=== PATIENT | female | born 1955 | race Caucasian/White ===

== ENCOUNTER → 2017-01-12 16:39 | Outpatient (CLI) | payer OTHER ==
[2016-10-27 12:51] VITALS: BMI 33.7
[~2017-01-12 16:39] MED LIST: FUROSEMIDE20 MG PO; KLOR-CON 1010 MEQ PO; NOVOLOG MIX 70/10 ML SQ; WELLBUTRIN SR150 MG PO; ZOLOFT100 MG PO; ZYRTEC10 MG PO
== END | disposition home or self-care (01) ==
LOC: D.MAMMO 08:30
DX: N64.4 Mastodynia (principal)

== ENCOUNTER → 2017-02-20 10:53 | Outpatient (CLI) | payer OTHER ==
[2016-10-27 12:51] VITALS: BMI 33.7
== END | disposition home or self-care (01) ==
LOC: D.RAD 10:53
DX: J20.9 Acute bronchitis, unspecified (principal)

== ENCOUNTER → 2017-04-18 08:31 | Outpatient (CLI) | payer OTHER ==
[2016-10-27 12:51] VITALS: BMI 33.7
== END | disposition home or self-care (01) ==
LOC: D.US 08:31
DX: K76.0 Fatty (change of) liver, not elsewhere classified (principal)

== ENCOUNTER → 2017-06-23 14:15 | Outpatient (CLI) | payer OTHER ==
[2016-10-27 12:51] VITALS: BMI 33.7
== END | disposition home or self-care (01) ==
LOC: D.LAB 14:15
DX: R07.81 Pleurodynia (principal)

== ENCOUNTER 2017-06-29 20:36 | Emergency (ER) | payer OTHER ==
[2016-10-27 12:51] VITALS: BMI 33.7
== END 2017-06-29 23:15 | disposition home or self-care (01) ==
LOC: D.ER 20:36
DX: E11.65 Type 2 diabetes mellitus with hyperglycemia (principal); F17.200 Nicotine dependence, unspecified, uncomplicated

== ENCOUNTER 2017-07-31 00:20 | Emergency (ER) | payer OTHER ==
[2016-10-27 12:51] VITALS: BMI 33.7
== END 2017-07-31 01:28 | disposition home or self-care (01) ==
LOC: D.ER 00:20
DX: S93.401A Sprain of unspecified ligament of right ankle, initial encounter (principal); W19.XXXA Unspecified fall, initial encounter; Y93.89 Activity, other specified; Y92.89 Other specified places as the place of occurrence of the external cause; S93.402A Sprain of unspecified ligament of left ankle, initial encounter; E11.9 Type 2 diabetes mellitus without complications; F17.200 Nicotine dependence, unspecified, uncomplicated

== ENCOUNTER → 2017-08-18 10:51 | Outpatient (CLI) | payer OTHER ==
[2016-10-27 12:51] VITALS: BMI 33.7
[2017-08-19 08:17] LABS: IMMUNOGLOBULIN E 1041 IU/mL (0-100)
[2017-08-21 15:20] LABS: IMMUNOGLOBULIN A 900 mg/dL (87-352); IMMUNOGLOBULIN G 1061 mg/dL (700-1600); IMMUNOGLOBULIN M 62 mg/dL (26-217)
== END | disposition home or self-care (01) ==
LOC: D.RAD 07-18 14:00 → D.LAB 07-18 14:00 → D.RT 07-18 14:00 → D.RAD 07-18 14:45 → D.LAB 07-18 15:00 → D.RT 10:51
PROVIDERS: Internal Medicine Pulmonary Disease
DX: J44.9 Chronic obstructive pulmonary disease, unspecified (principal)

== ENCOUNTER → 2017-10-18 08:56 | Outpatient (CLI) | payer OTHER ==
[2016-10-27 12:51] VITALS: BMI 33.7
[2017-10-18 10:21] LABS: ALBUMIN 3.4 g/dL (3.4-5.0); BILIRUBIN - DIRECT 0.16 mg/dL (0.00-0.30); BILIRUBIN - INDIRECT 0.42 mg/dL (0.00-1.00); BILIRUBIN - TOTAL 0.58 mg/dL (0.2-1.3); PROTEIN - SERUM 7.7 g/dL (6.4-8.2)
== END | disposition home or self-care (01) ==
LOC: D.US 08:56
PROVIDERS: Internal Medicine Gastroenterology
DX: K76.0 Fatty (change of) liver, not elsewhere classified (principal)

== ENCOUNTER → 2017-11-20 12:55 | Outpatient (CLI) | payer OTHER ==
[2016-10-27 12:51] VITALS: BMI 33.7
== END | disposition home or self-care (01) ==
LOC: D.CT 12:55
DX: I73.9 Peripheral vascular disease, unspecified (principal)

== ENCOUNTER 2018-02-15 11:51 | Day surgery (SDC) | payer OTHER ==
[~2018-02-15] VITALS: Ht 162.6 cm; Wt 87.3 kg
--- NOTE | ~2018-02-15 | OP ---
PATIENT NAME: JERE MEDELLIN MEDICAL RECORD: [id number] :53 LOCATION:[facility] ADMISSION DATE: SURGEON: AMEE STRANGE MD DATE OF OPERATION: 02/15/2018 PROCEDURE: Colonoscopy with biopsy. CONCRETE FORM SETTER: Amee Strange MD SCOPE: An Olympus video colonoscope. MEDICATIONS: Per TIVA anesthesia. The patient received 200 mg of propofol for this procedure, O2 four liters. REASON FOR ANESTHESIA: Arthritis, asthma, bronchitis, diabetes mellitus. INDICATION FOR THE PROCEDURE: Nausea, diarrhea, rory hematochezia, history of irritable bowel syndrome with diarrhea. FINDINGS: Informed consent was given. The patient was made comfortable with the above medications. After reaching an adequate level of sedation by slow IV push, the patient was placed on her left side. The rectal exam revealed good sphincter tone. No fissures or fistulas were appreciated. No external skin tags were seen. The colonoscope was advanced to the cecum where ileocecal valve and appendiceal orifice were identified. The patient did have some inflammation within the terminal ileum and biopsies were obtained. On withdrawal of the scope, mucosa was carefully inspected. It was noted that the patient had spasm associated with irritable bowel syndrome. This was globally throughout the colon. We will provide a prescription of Levsin to treat this condition in case the patient does have some crampy abdominal pain. The patient also had some inflammation within the rectal vault, which was biopsied. We also biopsied due to the condition of diarrhea, looking for mainly a microscopic etiology for the diarrhea in addition to the condition of irritable bowel syndrome. On retroflexion and final withdrawal of the scope, hemorrhoids were appreciated. IMPRESSION: 1. Inflammation within the terminal ileum, biopsied. 2. Spasm associated with irritable bowel syndrome, diarrhea predominant. 3. Mild rectal inflammation, biopsied. Also biopsied due to the condition of diarrhea. Of note, the patient does have diabetes mellitus which can add to the problem of diarrhea. 4. Hemorrhoids. PLAN: 1. Avoid anti-inflammatory drugs at least for 14 days. Of note, we will check the biopsy for collagenous colitis, which is a condition of subendothelial thickening of the colon mucosa, which can cause the condition of diarrhea. 2. Check the stool studies. 3. No caffeine. 4. The patient to take probiotics. 5. Due to the condition of inflammation within the small bowel, we will place the patient on Flagyl at a dose of 500 mg p.o. t.i.d. times 7 days. Also recommend dxnd-auk-ahpcfaw Imodium, no more than 6 per day. TRANSINT:[id number] Voice Confirmation ID: [id number] DOCUMENT ID: [id number] OPERATIVE REPORT [id number] JERE MEDELLIN BRENDA MD at 1421 CC: BLANK BARRAZA DO [id number] DICTATION DATE: 02/15/18 1525 INTERMISSION COORDINATOR: 02/15/18 1611 [facility] 02/15/18 [facility] [address] [place] [address]
[2018-02-15 12:47] VITALS: BP 120/71; Ht 162.6 cm; Wt 87.3 kg
[2018-02-15 12:47] LABS: ANION GAP 14.1 mmol/L (8-16); CALCIUM 8.3 mg/dL (8.5-10.1); CARBON DIOXIDE 29.1 mmol/L (21.0-32.0); CREATININE - SERUM 1.1 mg/dL (0.6-1.3); HEMATOCRIT 42.9 % (36.0-48.0); MCH 29.5 pg (26.0-34.0); MCHC 32.6 g/dL (31.0-37.0); MCV 90.5 fL (80.0-100.0); MEAN PLATELET VOLUME 10.8 fL (7.4-10.4); POTASSIUM - SERUM 4.2 mmol/L (3.5-5.1); RBC 4.74 10x6/uL (4.00-5.40); RDW 14.4 % (11.5-14.5); WBC 8.4 10x3/uL (4.8-10.8)
== END 2018-02-15 16:30 | disposition home or self-care (01) ==
LOC: D.OPS 11:51
PROVIDERS: Anesthesiology
DX: K92.1 Melena (principal); K58.0 Irritable bowel syndrome with diarrhea; K64.9 Unspecified hemorrhoids; M19.90 Unspecified osteoarthritis, unspecified site; J45.909 Unspecified asthma, uncomplicated; E11.9 Type 2 diabetes mellitus without complications; Z01.812 Encounter for preprocedural laboratory examination

== ENCOUNTER → 2018-02-19 08:06 | Outpatient (CLI) | payer OTHER ==
[2018-02-15 12:47] VITALS: BMI 33.0
== END | disposition home or self-care (01) ==
LOC: D.RAD 08:06
DX: Z86.010 Personal history of colon polyps (principal); K92.1 Melena; K58.0 Irritable bowel syndrome with diarrhea; R11.0 Nausea

== ENCOUNTER → 2018-02-22 10:42 | Outpatient (CLI) | payer OTHER ==
[2018-02-15 12:47] VITALS: BMI 33.0
[2018-02-23 07:34] LABS: IMMUNOGLOBULIN G 1081 mg/dL (700-1600); IMMUNOGLOBULIN M 72 mg/dL (26-217)
[2018-02-23 08:20] LABS: IMMUNOGLOBULIN A 878 mg/dL (87-352)
[2018-03-01 05:17] LABS: IMMUNOGLOBULIN E 881 IU/mL (0-100)
== END | disposition home or self-care (01) ==
LOC: D.LAB 10:30 → D.CT 11:00
PROVIDERS: Internal Medicine Pulmonary Disease
DX: R93.8 Abnormal findings on diagnostic imaging of other specified body structures (principal)

== ENCOUNTER 2018-04-14 10:57 | Emergency (ER) | payer OTHER ==
[~2018-04-14] VITALS: Ht 162.6 cm; Wt 82.7 kg
[2018-04-14 11:13] VITALS: Ht 162.6 cm; Wt 82.7 kg
[2018-04-14] MEDS ORDERED: HYDROCODON-ACET15 ML PO (11:16)
[2018-04-14] MEDS ORDERED: LEVEMIR100 U/M1 SC ×2 (11:17→11:18)
[2018-04-14 12:02] LABS: APPEARANCE CLEAR (CLEAR); BACTERIA MANY /hpf (NONE SEEN); BILIRUBIN NEGATIVE (NEGATIVE); COLOR YELLOW (YELLOW); EPITHELIAL CELLS 0-5 /hpf (0-5); GLUCOSE 1000 mg/dL (NEGATIVE); KETONE NEGATIVE (NEGATIVE); NITRITE POSITIVE (NEGATIVE); PROTEIN NEGATIVE (NEGATIVE); RED CELLS - URINE 0-5 /hpf (0-5); SPECIFIC GRAVITY 1.015 (1.005-1.020); UROBILINOGEN NORMAL (NORMAL)
[2018-04-14 12:32] LABS: BASOPHILS 0.6 % (0-2); EOSINOPHILS 2.7 % (0-7); HEMATOCRIT 38.3 % (36.0-48.0); HEMOGLOBIN 12.9 g/dL (12-16); LYMPHOCYTES 34.5 % (15-50); MCH 29.7 pg (26.0-34.0); MCHC 33.7 g/dL (31.0-37.0); MEAN PLATELET VOLUME 12.1 fL (7.4-10.4); MONOCYTES 5.3 % (2-11); NEUTROPHILS 56.9 % (40-80); PLATELET COUNT 140 10x3/uL (130-400); RBC 4.35 10x6/uL (4.00-5.40); RDW 14.2 % (11.5-14.5); WBC 4.7 10x3/uL (4.8-10.8)
[2018-04-14] MEDS ORDERED: MACROBID100 MG PO (12:40)
[2018-04-14 14:18] LABS: ALBUMIN 2.7 g/dL (3.4-5.0); ALKALINE PHOSPHATASE 110 U/L (46-116); ALT (SGPT) 29 U/L (10-68); CALCIUM 8.3 mg/dL (8.5-10.1); CARBON DIOXIDE 31.8 mmol/L (21.0-32.0); CHLORIDE - SERUM 104 mmol/L (98-107); CREATININE - SERUM 0.8 mg/dL (0.6-1.3); SODIUM 142 mmol/L (136-145); UREA NITROGEN 10 mg/dL (7-18); eGFR NON AFRICAN AMERICAN 77 mL/min (90-120)
[2018-04-14 14:41] LABS: CALC OSMOLALITY 283 mosm/kg (275-300); GLUCOSE 134 mg/dL (74-106)
[2018-04-14 14:42] LABS: POTASSIUM - SERUM 2.7 mmol/L (3.5-5.1)
[2018-04-14] MEDS ORDERED: K-DUR20 MEQ PO (15:06)
[2018-04-14 16:10] VITALS: BP 106/65
== END 2018-04-14 16:34 | disposition home or self-care (01) ==
LOC: D.ER 10:57
PROVIDERS: Emergency Medicine
DX: E11.65 Type 2 diabetes mellitus with hyperglycemia (principal); Z79.4 Long term (current) use of insulin; E87.6 Hypokalemia; Z91.14 Patient's other noncompliance with medication regimen; N39.0 Urinary tract infection, site not specified; F17.200 Nicotine dependence, unspecified, uncomplicated

== ENCOUNTER → 2018-04-27 07:09 | Outpatient (CLI) | payer OTHER ==
[2018-04-14 11:13] VITALS: BMI 31.3
[~2018-04-27 07:09] MED LIST changes: +ATIVAN0.5 MG PO; +HYDROCODON-ACET15 ML PO; +K-DUR20 MEQ PO; +LEVEMIR100 U/M1 SC; +MACROBID100 MG PO
[2018-04-27 08:22] LABS: ALBUMIN 3.2 g/dL (3.4-5.0); BILIRUBIN - DIRECT 0.1 mg/dL (0.00-0.30); BILIRUBIN - INDIRECT 0.27 mg/dL (0.00-1.00); BILIRUBIN - TOTAL 0.37 mg/dL (0.2-1.3); PROTEIN - SERUM 7.7 g/dL (6.4-8.2)
== END | disposition home or self-care (01) ==
LOC: D.US 04-19 09:30
PROVIDERS: Internal Medicine Gastroenterology
DX: K76.0 Fatty (change of) liver, not elsewhere classified (principal)

== ENCOUNTER 2018-05-09 22:33 | Emergency (ER) | payer OTHER ==
[~2018-05-09] VITALS: Ht 162.6 cm; Wt 78.2 kg
[~2018-05-09 22:33] MED LIST changes: -ATIVAN0.5 MG PO
[2018-05-09 23:00] VITALS: Ht 162.6 cm; Wt 78.2 kg
[2018-05-09 23:45] LABS: HEMATOCRIT 40.8 % (36.0-48.0); HEMOGLOBIN 13.8 g/dL (12-16); LYMPHOCYTES 25.8 % (15-50); MCH 29.7 pg (26.0-34.0); MCHC 33.8 g/dL (31.0-37.0); MCV 87.9 fL (80.0-100.0); MEAN PLATELET VOLUME 11.3 fL (7.4-10.4); NEUTROPHILS 65.6 % (40-80); PLATELET COUNT 121 10x3/uL (130-400); RBC 4.64 10x6/uL (4.00-5.40); RDW 14.5 % (11.5-14.5); WBC 6.9 10x3/uL (4.8-10.8)
[2018-05-10 00:08] LABS: ALBUMIN 3.2 g/dL (3.4-5.0); ANION GAP 10.8 mmol/L (8-16); BILIRUBIN - TOTAL 0.42 mg/dL (0.2-1.3); CALCIUM 8.4 mg/dL (8.5-10.1); CARBON DIOXIDE 28.3 mmol/L (21.0-32.0); CREATININE - SERUM 1.3 mg/dL (0.6-1.3); POTASSIUM - SERUM 4.1 mmol/L (3.5-5.1); PROTEIN - SERUM 7.8 g/dL (6.4-8.2)
[2018-05-10] MEDS ORDERED: ATIVAN0.5 MG PO (00:10)
[2018-05-10 00:28] LABS: APPEARANCE CLEAR (CLEAR); BILIRUBIN NEGATIVE (NEGATIVE); COLOR YELLOW (YELLOW); GLUCOSE 1000 mg/dL (NEGATIVE); KETONE NEGATIVE (NEGATIVE); NITRITE NEGATIVE (NEGATIVE); PROTEIN NEGATIVE (NEGATIVE); UROBILINOGEN NORMAL (NORMAL)
[2018-05-10 00:29] LABS: BACTERIA FEW /hpf (NONE SEEN); EPITHELIAL CELLS 0-5 /hpf (0-5); HYALINE CAST 0-5 /lpf (NONE SEEN); RED CELLS - URINE 0-5 /hpf (0-5)
[2018-05-10 00:49] VITALS: BP 122/72
== END 2018-05-10 00:50 | disposition home or self-care (01) ==
LOC: D.ER 22:33
PROVIDERS: Emergency Medicine
DX: R25.1 Tremor, unspecified (principal); E11.9 Type 2 diabetes mellitus without complications; Z79.4 Long term (current) use of insulin; F17.200 Nicotine dependence, unspecified, uncomplicated

== ENCOUNTER → 2018-06-14 12:07 | Outpatient (CLI) | payer OTHER ==
[2018-05-09 23:00] VITALS: BMI 29.6
[~2018-06-14 12:07] MED LIST changes: +ATIVAN0.5 MG PO
[2018-06-15 07:32] LABS: HEPATITIS C ANTIBODY 0.2 (0.0-0.9)
== END | disposition home or self-care (01) ==
LOC: D.LAB 06-13 12:00
PROVIDERS: Internal Medicine Gastroenterology
DX: K76.0 Fatty (change of) liver, not elsewhere classified (principal); K58.0 Irritable bowel syndrome with diarrhea; R79.89 Other specified abnormal findings of blood chemistry

== ENCOUNTER 2018-10-20 10:44 | Emergency (ER) | payer OTHER ==
[2018-10-20 10:53] VITALS: Ht 162.6 cm
[2018-10-20] MEDS ORDERED: VITAMIN D31000 UNI2 (10:55)
[2018-10-20] MEDS ORDERED: BACLOFEN20 M1 PO (11:59)
[2018-10-20] MEDS ORDERED: PREDNISONE20 MG PO (11:59)
[2018-10-20 12:19] VITALS: BP 122/72
== END 2018-10-20 12:20 | disposition home or self-care (01) ==
LOC: D.ER 10:44
DX: M79.604 Pain in right leg (principal); F17.200 Nicotine dependence, unspecified, uncomplicated

== ENCOUNTER 2019-10-23 05:25 | Emergency (ER) | payer SELFPAY ==
[~2019-10-23] VITALS: Ht 162.6 cm; Wt 82.3 kg
[~2019-10-23 05:25] MED LIST changes: +BACLOFEN20 M1 PO; +PREDNISONE20 MG PO; +VITAMIN D31000 UNI2
[2019-10-23 05:37] VITALS: Ht 162.6 cm; Wt 82.3 kg
[2019-10-23 06:38] LABS: BASOPHILS 0.2 % (0-2); EOSINOPHILS 0.2 % (0-7); HEMATOCRIT 36.7 % (36.0-48.0); HEMOGLOBIN 12.3 g/dL (12-16); LYMPHOCYTES 12.7 % (15-50); MCHC 33.5 g/dL (31.0-37.0); MCV 86.6 fL (80.0-100.0); MONOCYTES 11.9 % (2-11); PLATELET COUNT 109 10x3/uL (130-400); RBC 4.24 10x6/uL (4.00-5.40); RDW 14.6 % (11.5-14.5); WBC 4.1 10x3/uL (4.8-10.8)
[2019-10-23 06:41] LABS: ANION GAP 12.6 mmol/L (8-16); CARBON DIOXIDE 27.4 mmol/L (21.0-32.0); CREATININE - SERUM 1.1 mg/dL (0.6-1.3)
[2019-10-23 06:44] LABS: ALBUMIN 2.9 g/dL (3.4-5.0); BILIRUBIN - TOTAL 0.9 mg/dL (0.2-1.3); PROTEIN - SERUM 7.6 g/dL (6.4-8.2)
[2019-10-23] MEDS ORDERED: PROMETHAZINE W473 ML PO (06:56)
[2019-10-23] MEDS ORDERED: ZPAK PO (06:56)
[2019-10-23 08:27] VITALS: BP 112/48
== END 2019-10-23 08:40 | disposition home or self-care (01) ==
LOC: D.ER 05:25
PROVIDERS: Family Medicine
DX: K52.9 Noninfective gastroenteritis and colitis, unspecified (principal); J40 Bronchitis, not specified as acute or chronic; E11.65 Type 2 diabetes mellitus with hyperglycemia; Z79.4 Long term (current) use of insulin; E87.6 Hypokalemia

== ENCOUNTER 2019-11-25 11:28 | Inpatient (IN) | payer MEDICAID ==
[~2019-11-25] VITALS: Ht 162.6 cm; Wt 77.1 kg
--- NOTE | ~2019-11-25 | ST ---
PATIENT:JERE MEDELLIN MEDICAL RECORD: [id number] SEX: F LOCATION:[facility] D.213 ORDER #: ADMISSION DATE: 11/25/19 AGE OF PATIENT: 64 REFERRING PHYSICIAN: INTERPRETING PHYSICIAN: AMY OVALLE MD DATE OF SERVICE: 11/28/2019 Nuclear Stress Test INDICATIONS: Chest pain. She was exercised on standard Lexiscan protocol with 31 mCi of sestamibi injected at peak stress. Rest images were done previously with 12 mCi. FINDINGS: Gated SPECT reveals a preserved ejection fraction at greater than 60% with good wall motioning and thickening and brightening throughout all segments. SPECT Imaging: Cardiolite was used as myocardial perfusion agent. There is reversibility anteriorly and laterally. This includes the basal, mid, apical anterior segments as well as the apical lateral, mid lateral, basal lateral segments. Degree of reversibility is mild. The amount of myocardium involved is large. OVERALL IMPRESSION: This is an intermediate risk abnormal nuclear stress test, reversible changes anteriorly and laterally suggestive of hemodynamically significant coronary artery disease. TRANSINT:[id number] Voice Confirmation ID: [id number] DOCUMENT ID: [id number] MAY OVALLE MD CC: [id number] DICTATION DATE: 11/29/19 1249 DIE CUTTER APPRENTICE: 11/30/19 0103 ADM IN [facility] [address] [place] [address]
--- NOTE | ~2019-11-25 | HEMODYNAMI ---
PATIENT:JERE MEDELLIN MEDICAL RECORD: [id number] : 53 LOCATION:[facility] D.2133 [facility]# [id number] ADMISSION DATE: 11/25/19 Generatedon:11/29/201916:08 Patient name: JERE MEDELLIN Patient #: [id number] SSN: [id number] : 1955 Date of study: 11/29/2019 Page: Of Hemodynamic Procedure Report Patient Data Patient Demographics Procedure consent was obtained First Name: JERE Gender: Female Last Name: LACIE : 1955 Patient #: [id number] Age: 64 year(s) Race: SSN: [id number] Ethnicity: or Additional ID: [id number] Contact details Address: [address] [place] [address] State: [place] City: [facility] Zip code: [address] Past Medical History Allergies Allergen Reaction Date Comments Reported Other allergy 11/29/2019 n-saids, pcn, cefaclor, aspirin, meloxicam Admission Admission Data Admission Date: 11/25/2019 Admission Time: 17:01 Arrival Date: 11/29/2019 Arrival Time: 0:00 Admit Source: Other Insurance Payor: Medicaid Room #: D.2133 [facility] #: [id number] Height (in.): 64 BSA: 1.8 (m2) Height (cm.): 162.56 BMI: 28.15 (kg/m2) Weight (lbs.): 163.98 Weight (kg.): 74.38 Lab Results Lab Result Date: 11/29/2019 Lab Result Time: 0:00 Biochemistry Name Units Result Min Max BUN mg/dl 21 --(----)-* 7 18 Creatinine mg/dl 0.8 --(-*--)-- 0.6 1.3 eGFR ml/min 76.54461 *-(----)-- 90 120 NONAFRICAN CBC Name Units Result Min Max Hematocrit % 36.1 *-(----)-- 42 54 Hemoglobin g/dl 11.5 *-(----)-- 13.5 17.5 Procedure Procedure Types Cath Procedure Diagnostic Procedure [facility] w/Coronaries Procedure Description Procedure Date Procedure Date: 11/29/2019 Procedure Start Time: 15:54 Procedure End Time: 16:02 Procedure Staff Name Function Denilson Castellanos MD Performing Physician Lopez Clark RN Nurse Chetan Adams RT Scrub Amber Maldonado RT Monitor Indication Chest pain Procedure Data Cath Procedure Fluoroscopy Diagnostic fluoroscopy Total fluoroscopy Time: 1 time: 1 min min Diagnostic fluoroscopy Total fluoroscopy dose: dose: 74.77 mGy 74.77 mGy Contrast Material Contrast Material Type Amount (ml) Isovue 370 33 Entry Location Entry Primary Successful Side Size Upsize Upsize Entry Closure Dee ccessful Closure Location (Fr) 1 (Fr) 2 (Fr) Remarks Device Remarks Radial Right 6 Fr Mechanical artery Short Compression Estimated blood loss: 5 ml Diagnostic catheters Device Type Used For End Catheter Placement DIAGNOSTIC [place] 110cm 5 Procedure Fr catheter ([id number]) Procedure Complications No complications Procedure Medications Medication Administration Route Dosage 0.9% NaCl I.V. 100 ml/hr Oxygen etCO2 Nasal cannula 2 l/min Heparin Flush Bag added to field 2 bags (1000units/500ml NS) Lidocaine 2% added to field 20 Radial Cocktail added to field 1 syringe (Verapamil 2mg/Nitro 400mcg/Heparin 1500units) Versed I.V. 2 mg Fentanyl I.V. 100 mcg Radial Cocktail I.A. 1 syringe (Verapamil 2mg/Nitro 400mcg/Heparin 1500units) Versed I.V. 1 mg Hemodynamics Rest BSA: 1.8 (m2) HGB: 11.5 (g/dl) O2 Consumption: Estimated: 183.61 (ml/min) O2 Con sumption indexed: Estimated:102.01 (ml/min/m) Heart Rate: 93 (bpm) Snapshots Pre Cath Intra NCS Post Cath Vital Signs Time Heart Resp SPO2 etCO2 NIBP Rhythm Pain Sedation Rate (ipm) (%) (mmHg) (mmHg) Status Level (bpm) 15:26:36 92 17 91 36 111/65(86) NSR 0 (11) 10(A) , No pain 15:30:42 92 26 92 32.3 110/66(83) NSR 0 (11) 10(A) , No pain 15:34:45 94 18 92 28.5 106/70(78) NSR 0 (11) 10(A) , No pain 15:38:51 95 11 93 30.8 108/62(80) NSR 0 (11) 10(A) , No pain 15:42:53 96 11 93 3 106/73(90) NSR 0 (11) 10(A) , No pain 15:46:57 95 12 90 22.5 107/67(82) NSR 0 (11) 10(A) , No pain 15:51:00 95 13 92 34.5 100/68(81) NSR 0 (11) 10(A) , No pain 15:55:02 95 12 92 36.8 110/67(91) NSR 0 (11) 10(A) , No pain 15:59:12 92 11 92 18.8 87/54(70) NSR 0 (11) 10(A) , No pain 16:03:12 94 11 90 0 93/59(79) NSR 0 (11) 10(A) , No pain Medications Time Medication Route Dose Verified Delivered Reason Notes Effectiveness by by 15:24:48 0.9% NaCl I.V. 100 Lopez Lopez Per ml/hr Eduardo Clark physician RN RN 15:24:57 Oxygen etCO2 2 l/min Lopez Lopez for low 02 Nasal Lorigan Lorigan sats cannula RN RN 15:25:08 Heparin Flush added 2 bags Lopez Lopez used for Bag to Lorigan Lorigan procedure (1000units/500ml the [facility] RN RN NS) 15:25:18 Lidocaine 2% added 20ml Lopez Lopez for local to vial Lorigan Lorigan anesthetic field RN RN 15:25:32 Radial Cocktail added 1 Lopez Lopez used for (Verapamil to syringe Lorigan Lorigan procedure 2mg/Nitro field RN RN 400mcg/Hepari 15:55:48 Versed I.V. 2 mg Lopez Lopez for sedation Eduardo Clark RN RN 15:55:56 Fentanyl I.V. 100 mcg Lopez Lopez for sedation Eduardo Clark RN RN 15:56:10 Radial Cocktail I.A. 1 Lopez Denilson for (Verapamil syringe Eduardo Castellanos MD vasodilation 2mg/Nitro RN 400mcg/Hepari 15:57:05 Versed I.V. 1 mg Lopez Marroquin for sedation Eduardo Clark RN row boss hoeing Log Time Note 15:13:04 Diagnostic Cath Status : Emergency 15:13:12 Indication : Chest pain 15:13:17 Procedure Status Emergent Heart Cath (AMI). 15:13:27 Chetan Adams RT(R) sent for patient. Start room use. 15:13:29 Time tracking: Regular hours (M-F 7:00 - 5:00) 15:13:34 Plan of Care:Hemodynamics will remain stable., Cardiac rhythm will remain stable., Comfort level will be maintained., Respiratory function will remain adequate., Patient/ family verbilizes understanding of procedure., Procedure tolerated without complication., Recovers from procedure without complications.. 15:13:38 Admit Source: Other 15:13:47 Stress Test: no; N/A ? 15:15:36 Patient received from Med II to CCL 3 Alert and oriented. Tansferred to table in Supine position. 15:15:45 Signed procedure consent form obtained from patient. 15:15:46 Warm blankets applied, and jackie hugger turned on for patient comfort. 15:15:47 Correct patient and procedure confirmed by team. 15:15:49 Full Disclosure recording started 15:15:53 ECG and BP/O2 sat monitors applied to patient. 15:16:00 H&P Date Dictated: 11/29/2019 Emergent; H&P N/A. 15:16:01 Pre-procedure instructions explained to patient. 15:16:02 Pre-op teaching completed and patient verbalized understanding. 15:16:50 Patient allergic to Other allergyn-saids, pcn, cefaclor, aspirin, meloxicam 15:16:56 Patient NPO since Lunch. 15:17:37 Arrival Date: 11/29/2019 12:00:00 AM 15:17:42 Patient Height : 64 inches 15:17:48 Patient Weight : 163.98 lbs 15:17:55 Insurance Payor : Medicaid 15:24:48 0.9% NaCl 100 ml/hr I.V. was administered by Lopez Clark RN; Per physician; Verbal order read back and verified. 15:24:57 Oxygen 2 l/min etCO2 Nasal cannula was administered by Lopez Lorigan RN; for low 02 sats; Verbal order read back and verified. 15:25:08 Heparin Flush Bag (1000units/500ml NS) 2 bags added to field was administered by Lopez Clark RN; used for procedure; Verbal order read back and verified. 15:25:18 Lidocaine 2% 20ml vial added to field was administered by Lopez Clark RN; for local anesthetic; Verbal order read back and verified. 15:25:32 Radial Cocktail (Verapamil 2mg/Nitro 400mcg/Heparin 1500units) 1 syringe added to field was administered by Lopez Clark RN; used for procedure; Verbal order read back and verified. 15:25:37 Vital chart was started 15:25:47 Baseline sample Acquired. 15::51 Rhythm: sinus rhythm 15::54 Family in waiting room. 15:25:59 Is the patient allergic to Iodine/contrast media? No. 15:26:01 Was the patient premedicated? No 15:26:03 Is patient on blood thinner?No 15:26:05 Patient diabetic? Yes. 15:26:06 If diabetic: On Metformin? Yes 15:26:11 If on Metformin: Last Dose? 11/28/2019 15:26:27 Patient not . Patient is over age 55. 15:26:28 ----Pre-sedation anethsthesia assessment.---- 15:26:33 Previous problem with sedation/anesthesia? No ? 15:26:35 Snore? No 15:26:36 Sleep apnea? No 15:26:37 Deviated septum? No 15:26:39 Opens mouth fully? Yes 15:26:40 Sticks out tongue? Yes 15:26:44 Airway obstruction? Yes copd 15:26:47 Dentures? No ? 15:26:51 Pre procedure: right dorsailis pedis pulse 2+ Normal; easily identifiable; not easily obliterated 15::55 Modified Tao's test Ulnar < 7 seconds 15:27:06 IV patent on arrival in right antecubital with 0.9% NaCl at [facility]. 15:32:54 Lab Result : Hemoglobin 11.5 g/dl 15:32:54 Lab Result : Hematocrit 36.1 % 15:32:54 Lab Result : eGFR NONAFRICAN 76.30904 ml/min 15:32:54 Lab Result : BUN 21 mg/dl 15:32:54 Lab Result : Creatinine 0.8 mg/dl 15:32:58 Lab results completed and on chart. 15:33:03 Risk of Mortality: 1.0 15:33:07 Risk of blood transfusion: 6.2 15:33:11 Risk of ISAI: 4.8 15:33:15 Right Radial & Right Groin area was prepped with chlora-prep and draped in sterile fashion 15:33:16 Sharps counted by scrub and verified by R.N. 15:33:16 Alarms reviewed by R. N. 15:33:23 Patient pain scale 0/10 ?. 15:35:50 Use device set Radial Dx or PCI 15:35:51 ACIST Syringe (38941) opened to sterile field. 15:35:52 Medline Cath Pack ([id number]) opened to sterile field. 15:35:53 ACIST Hand Control (29866) opened to sterile field. 15:35:53 Bag Decanter (2002S) opened to sterile field. 15:35:54 ACIST Manifold (81150) opened to sterile field. 15:35:55 Tegaderm 4 x 4 (1626W) opened to sterile field. 15:35:56 MBrace Wrist Support ([id number]) opened to sterile field. 15:35:59 EMERALD Guide Wire (786-606) opened to sterile field. 15:36:01 SHEATH 6FR RAIN (8927383) opened to sterile field. 15:48:55 --------ALL STOP TIME OUT------ 15:48:56 Final Timeout: patient, procedure, and site verified with staff and physician. All members of the team are in agreement. 15:49:04 Right Radial & Right Groin site verified by team. 15:49:08 Fire Safety Assessment: A--An alcohol-based skin anteseptic being used preoperatively., C--Open oxygen or nitrous oxide is being used., D--An ESU, laser, or fiber-optic light is being used. 15:49:13 Physical assessment completed. ASA score P 2 - A patient with mild systemic disease as per Denilson Castellanos MD. 15:49:16 2) 60-89 Mildly reduced kidney function, and other findings (as for stage 1) point to kidney disease. 15:49:19 Maximum allowable contrast dose (3.7 X eGFR X 0.75)211 ml. 15:49:25 Sedation plan: IV Moderate Sedation Medication:Versed, Fentanyl 15:54:42 Procedure started. 15:54:48 Local anesthetic to right radial artery with Lidocaine 2% by Denilson Castellanos MD.INITIAL ACCESS ONLY 15:55:48 A 6 Fr Short sheath was inserted into the Right Radial artery 15:55:48 Versed 2 mg I.V. was administered by Lopez Clark RN; for sedation; Verbal order read back and verified. 15:55:56 Fentanyl 100 mcg I.V. was administered by Lopez Clark RN; for sedation; Verbal order read back and verified. 15:56:10 Radial Cocktail (Verapamil 2mg/Nitro 400mcg/Heparin 1500units) 1 syringe I.A. was administered by Denilson Castellanos MD; for vasodilation; Verbal order read back and verified. 15:57:05 Versed 1 mg I.V. was administered by Lopez Clark RN; for sedation; Verbal order read back and verified. 15:57:17 A DIAGNOSTIC [place] 110cm 5 Fr catheter (286617) was advanced over the wire and used for Procedure. 15:57:21 LV gram done using BLOOD 15:57:25 Injector settings: Ml/sec: 5, Volume: 15, 15:57:46 EF : 60 % 15:58:04 LCA angiography performed. 15:58:35 RCA angiography performed. 15:58:46 Catheter removed. 15:58:57 ZEPHYR REGULAR TR BAND (655601) opened to sterile field. 15:59:08 Sheath removed intact; hemostasis achieved with Mechanical Compression to the Right Radial artery. 15:59:11 Procedure ended.(Physican Out) 15:59:21 Fluoroscopy time 01.00 minutes. 15:59:26 Fluoroscopy dose: 74.77 mGy 15:59:26 Flurop Dose total: 74.77 15:59:31 Dose Area Product 5840 mGy/cm. 15:59:35 Contrast amount:Isovue 370 33ml. 15:59:38 Maximum allowable dose exceeded? No. 15:59:39 Sharps counted by scrub and verified by R.N. 15:59:42 [place] band inflated with 10cc of air. 15:59:44 Post Procedure Pulses reassessed and unchanged 15:59:47 Post procedure: right dorsailis pedis pulse 2+ Normal; easily identifiable; not easily obliterated. 15:59:50 Post-procedure physical assessment completed. ASA score P 2 - A patient with mild systemic disease as per Denilson Castellanos MD. 15:59:53 Post procedure rhythm: unchanged. 15:59:56 Estimated blood loss: 5 ml 16:00:07 Post procedure instruction explained to patient.Patient verbalizes understanding. 16:00:09 Patient needs reinforcement of post procedure teaching. 16:01:40 Procedure and supply charges have been captured, reviewed, submitted and are correct. 16:01:44 Procedure Complication : No complications 16:01:49 [facility] Findings: mild to moderate CAD (<70%) 16:01:50 Operative report dictated upon procedure completion. 16:01:51 See physician's report for complete and final results. 16:02:03 Report given to Med II. 16:02:08 Patient transfered to Med II with Stretcher. 16:02:11 Full Disclosure recording stopped 16:02:11 Procedure ended. 16:04:00 End room use (Document Last) 16:04:15 End room use (Document Last) 16:04:33 End room use (Document Last) 16:04:55 Vital chart was stopped Device Usage Item Name Manufacture Quantity Catalog Hospital Part Current Minima l Lot# / Number Charge Number Stock Stock Serial# Code ACIST Acist 1 14080 [id number] 092758 [id number] 20 Syringe Medical (00751) Systems Inc Medline Medline 1 [id number] 984588 95915 249381 5 Cath Pack ([id number]) Bag Microtek 1 557978 88541 762558 5 Decanter Medical Inc. () ACIST Hand Acist 1 58606 571027 984557 163445 5 Control Medical (81553) Systems Inc ACIST Acist 1 03327 919194 970324 110975 5 Manifold Medical (57188) Systems Inc Tegaderm 4 3M 1 1626W 035027 410087 835161 5 x 4 (1626W) MBrace Advanced 1 140-0250-00 445826 55604 490673 5 Wrist Vascular Support Dynamics ([id number]) [facility] 1 581-573 886552 277200 966848 5 Guide Wire [facility] (060-284) SHEATH 6FR Cardinal 1 4336408 586310 3637354 551265 5 [facility] (2853319) DIAGNOSTIC Terumo 1 40-5778 514550 895128 432266 5 [place] 110cm 5 Fr catheter (936746) ZEPHYR Cardinal 1 018887 981690 3981710 204051 5 REGULAR TR Health BAND (123851) Signature Audit Mcfall Stage Time Signature Unsigned Intra-Procedure 11/29/2019 Amber Maldonado 4:04:15 PM RT(R) Intra-Procedure 11/29/2019 Lopez 4:04:33 PM Eduardo STERN Intra-Procedure 11/29/2019 Denilson Castellanos MD 4:04:53 PM 11/29/2019 4:06:08 PM Intra-Procedure 11/29/2019 Denilson Castellanos 4:08:05 PM [facility] [address] [place] [address]
--- NOTE | ~2019-11-25 | OP ---
PATIENT NAME: JERE MEDELLIN MEDICAL RECORD: [id number] :53 LOCATION:D.M2 D.2133 ADMISSION DATE:11/25/19 SURGEON: AMY OVALLE MD DATE OF OPERATION: 11/29/2019 PROCEDURES: 1. Left heart catheterization. 2. Selective coronary angiography. 3. Left ventriculogram. INDICATION: Angina, abnormal nuclear stress test. PROCEDURE IN DETAIL: After informed consent was obtained, after detailed description of risks and benefits as well as alternative therapies, the patient elected to proceed with angiogram and heart catheterization. The right radial area was prepped and draped in normal sterile fashion. Right radial artery was cannulated via modified Seldinger technique with placement of a 5-Ku[place]i sheath. All catheters exchanged through this sheath. FINDINGS: Left ventriculogram was performed in standard 30-degree BLOOD view, reveals good cardiac wall motion, ejection fraction estimated at 60%. SELECTIVE CORONARY ANGIOGRAPHY: Left main, left anterior descending, left circumflex, right coronary artery are all smooth-walled vessels with no angiographic evidence of coronary artery disease. OVERALL IMPRESSION: 1. No angiographic evidence of coronary artery disease. 2. Normal left heart pressures. 3. Normal left ventricular systolic function. Chest pain is noncardiac in etiology. Stress test is false positive, no other cardiac workup is necessary. TRANSINT:[id number] Voice Confirmation ID: [id number] DOCUMENT ID: [id number] AMY OVALLE MD CC: [id number] DICTATION DATE: 11/29/19 1604 BIZTALK CONSULTANT: 11/29/[address] [facility] [address] [place] [address]
[~2019-11-25 11:28] MED LIST changes: +LEVEMIR IN100 UNITS/ SC; +PROMETHAZINE W473 ML PO; +ZPAK PO
[2019-11-25 12:10] LABS: BASOPHILS 0.4 % (0-2); EOSINOPHILS 4.1 % (0-7); HEMATOCRIT 42.4 % (36.0-48.0); HEMOGLOBIN 14.2 g/dL (12-16); IMMATURE GRANULOCYTES 0.1 % (0-5); LYMPHOCYTES 32.6 % (15-50); MCH 29.3 pg (26.0-34.0); MCHC 33.5 g/dL (31.0-37.0); MCV 87.6 fL (80.0-100.0); MEAN PLATELET VOLUME 10.8 fL (7.4-10.4); MONOCYTES 6.4 % (2-11); NEUTROPHILS 56.4 % (40-80); RBC 4.84 10x6/uL (4.00-5.40); RDW 14.3 % (11.5-14.5); WBC 6.9 10x3/uL (4.8-10.8)
[2019-11-25 12:11] LABS: PLATELET COUNT 178 10x3/uL (130-400)
[2019-11-25 12:29] LABS: ALBUMIN 3.3 g/dL (3.4-5.0); ALKALINE PHOSPHATASE 87 U/L (30-120); ALT (SGPT) 26 U/L (10-68); BILIRUBIN - TOTAL 0.78 mg/dL (0.2-1.3); CALCIUM 8.6 mg/dL (8.5-10.1); CARBON DIOXIDE 32.2 mmol/L (21.0-32.0); CHLORIDE - SERUM 99 mmol/L (98-107); CKMB 0.8 U/L (0.0-3.6); CREATINE KINASE 72 UL (21-215); PRO BNP 43 pg/mL (0-125); PROTEIN - SERUM 8.4 g/dL (6.4-8.2); SODIUM 140 mmol/L (136-145); UREA NITROGEN 13 mg/dL (7-18); eGFR NON AFRICAN AMERICAN 59 mL/min (90-120)
--- NOTE | 2019-11-25 12:30 | NUR ---
REUSED ASA AND NITRO.
[2019-11-25 12:31] LABS: CALC OSMOLALITY 278 mosm/kg (275-300); GLUCOSE 107 mg/dL (74-106); TROPONIN-I < 0.017 ng/mL (0.000-0.060)
[2019-11-25 12:35] LABS: POTASSIUM - SERUM 2.7 mmol/L (3.5-5.1)
--- NOTE | 2019-11-25 12:37 | NUR ---
POTASSIUM 2.7 DR MELVIN NOTIFIED.
[2019-11-25 14:05] VITALS: BP 137/71
--- NOTE | 2019-11-25 14:05 | NUR ---
ASSUMED CARE FOR LUNCH RELIEF. PT A/OX3. C/O "A LITTLE CP WHEN I BREATH"
--- NOTE | 2019-11-25 15:00 | NUR ---
1500 STOP TIME FOR LEVAQUIN 500MG INDUSED.
[2019-11-25 15:03] LABS: CKMB 0.8 U/L (0.0-3.6); CREATINE KINASE 68 UL (21-215); TROPONIN-I < 0.017 ng/mL (0.000-0.060)
[2019-11-25 15:15] VITALS: BP 117/69
--- NOTE | 2019-11-25 17:54 | NUR ---
NEW ADMIT. DINNER TRAY PLEASE.
[2019-11-25 17:55] VITALS: BP 127/57; BMI 28.2
--- NOTE | 2019-11-25 17:57 | NUR ---
ADMISSION HX COMPLETED AND MED REC. PT STATES ALL THE MEDS LISTED SHE'S SUPPOSSED TO BE TAKING SHE JUST CAN'T AFFORD TO PAY FOR THEM BECAUSE SHE LOST HER MEDICAID, FOOD STAMPS, AND ANY HELP SHE GOT. PT STATES SHE HAS BEING HAVING FREQUENT FALLS. STATED TO PT TO CALL US IF SHE NEEDS TO USE THE BATHROOM. PT VERBALIZED UNDERSTANDING. BED ALARM TURNED ON.
--- NOTE | 2019-11-25 19:23 | NUR ---
EVENING ROUNDS COMPLETE. PT SITTING UP IN BED. PT VOICED CONCERN THAT HER WALKER WITH HER BELONGINGS WHERE LEFT IN THE ER AND HAVE NOT BEEN RETURNED TO HER. METAL AND PLASTIC HEATER WENT TO ER AND WAS ABLE TO LOCATE PT WALKER WITH HER COAT AND CANE. PT VOICED THANKS. NO OTHER NEEDS VOICED AT THIS TIME. CL IN REACH, BED IN LOWEST POSITION.
[2019-11-25 20:00] VITALS: BP 168/89
[2019-11-25 20:30] LABS: CREATINE KINASE 70 UL (21-215); TROPONIN-I < 0.017 ng/mL (0.000-0.060)
[2019-11-26] VITALS: BP 140/67
[2019-11-26 02:46] LABS: BASOPHILS 0 % (0-2); EOSINOPHILS 0 % (0-7); HEMATOCRIT 38.1 % (36.0-48.0); HEMOGLOBIN 12.6 g/dL (12-16); LYMPHOCYTES 13.4 % (15-50); MCH 28.6 pg (26.0-34.0); MCHC 33.1 g/dL (31.0-37.0); MCV 86.6 fL (80.0-100.0); MEAN PLATELET VOLUME 10.9 fL (7.4-10.4); MONOCYTES 0.7 % (2-11); NEUTROPHILS 85.9 % (40-80); RDW 14.2 % (11.5-14.5)
[2019-11-26 02:58] LABS: PLATELET COUNT 142 10x3/uL (130-400); WBC 4.5 10x3/uL (4.8-10.8)
[2019-11-26 03:28] LABS: ALBUMIN 2.7 g/dL (3.4-5.0); ALKALINE PHOSPHATASE 70 U/L (30-120); ALT (SGPT) 23 U/L (10-68); BILIRUBIN - TOTAL 0.62 mg/dL (0.2-1.3); CALCIUM 7.7 mg/dL (8.5-10.1); CHLORIDE - SERUM 99 mmol/L (98-107); CKMB 0.7 U/L (0.0-3.6); CREATINE KINASE 67 UL (21-215); CREATININE - SERUM 1.1 mg/dL (0.6-1.3); MAGNESIUM - SERUM 1.2 mg/dL (1.8-2.4); PHOSPHOROUS 3.4 mg/dL (2.5-4.9); PROTEIN - SERUM 7.2 g/dL (6.4-8.2); SODIUM 136 mmol/L (136-145); THYROID STIMULATING HORMONE 1.09 uIU/mL (0.36-3.74); UREA NITROGEN 15 mg/dL (7-18); eGFR NON AFRICAN AMERICAN 53 mL/min (90-120)
[2019-11-26 03:57] LABS: CALC OSMOLALITY 293 mosm/kg (275-300); POTASSIUM - SERUM 3.9 mmol/L (3.5-5.1); TROPONIN-I < 0.017 ng/mL (0.000-0.060)
[2019-11-26 03:58] LABS: GLUCOSE 471 mg/dL (74-106)
[2019-11-26 04:00] VITALS: BP 128/69
--- NOTE | 2019-11-26 04:00 | NUR ---
CALL FROM LAB WITH CRITICAL BLOOD GLUCOSE OF 471. PAGED TRACY ZAIDI APN. PER TRACY ZAIDI APN, PT SLIDING SCALE TO BE USED AT THIS TIME, NON SCHEDULED. PER TRACY ZAIDI APN, PT SLIDING SCALE TO BE CHANGED FROM LOW TO INTERMEDIATE.
[2019-11-26 09:01] VITALS: BP 104/58
[2019-11-26 13:17] VITALS: BP 139/59
[2019-11-26 14:38] VITALS: BMI 28.1
[2019-11-26 16:12] VITALS: BP 110/55
[2019-11-26 20:00] VITALS: BP 103/58
--- NOTE | 2019-11-26 20:19 | NUR ---
EVEFNING ROUNDS COMPLETED. VSS, AAOX3, NO S/S OF RT DISTRESS. PT DENIES PAIN AT THIS TIME. NOTIFIED PT ON THE NEED TO COLLECT RT AND UA CULTURES. PT VERBALIZE UNDERSTANDING. PT DENIES ANY FURTHER NEEDS AT THIS TIME. WILL CPOC. CL WITHIN REACH.
[2019-11-27] VITALS: BP 115/54
[2019-11-27 03:13] LABS: APPEARANCE CLEAR (CLEAR); BILIRUBIN NEGATIVE (NEGATIVE); COLOR YELLOW (YELLOW); GLUCOSE 1000 mg/dL (NEGATIVE); KETONE NEGATIVE (NEGATIVE); NITRITE NEGATIVE (NEGATIVE); PROTEIN NEGATIVE (NEGATIVE); UROBILINOGEN NORMAL (NORMAL)
[2019-11-27 04:00] VITALS: BP 112/56
[2019-11-27 06:13] LABS: BASOPHILS 0 % (0-2); EOSINOPHILS 0.1 % (0-7); HEMOGLOBIN 11.4 g/dL (12-16); IMMATURE GRANULOCYTES 0.2 % (0-5); LYMPHOCYTES 8.2 % (15-50); MCH 28.5 pg (26.0-34.0); MCHC 32.6 g/dL (31.0-37.0); MCV 87.5 fL (80.0-100.0); MEAN PLATELET VOLUME 10.7 fL (7.4-10.4); NEUTROPHILS 87.5 % (40-80); PLATELET COUNT 128 10x3/uL (130-400); RDW 14.6 % (11.5-14.5)
--- NOTE | 2019-11-27 06:17 | NUR ---
PT FSBS 409. ADMINISTERED 20UNITS HUMALOG AND NOTIFIED TRACY TERRY.
[2019-11-27 06:26] LABS: ANION GAP 10.1 mmol/L (8-16); CALCIUM 7.5 mg/dL (8.5-10.1); CARBON DIOXIDE 28.7 mmol/L (21.0-32.0); CREATININE - SERUM 1.2 mg/dL (0.6-1.3); POTASSIUM - SERUM 3.8 mmol/L (3.5-5.1)
[2019-11-27 06:27] LABS: MAGNESIUM - SERUM 1.8 mg/dL (1.8-2.4)
[2019-11-27 08:00] VITALS: BP 105/51
--- NOTE | 2019-11-27 09:20 | NUR ---
PATIENT REQUESTS TO HAVE CONFIDENTIAL REMOVED FROM HER CHART.
[2019-11-27 12:00] VITALS: BP 115/70
[2019-11-27 12:17] VITALS: Ht 162.6 cm; Wt 77.1 kg
--- NOTE | 2019-11-27 14:41 | MORECARE ---
CASE MANAGEMENT DISCHARGE SUMMARY PATIENT: JERE MEDELLIN UNIT: [id number] ADM DATE: 11/25/19 AGE: 64 : 53 SEX: F ROOM/BED: D.2133 AUTHOR: CHARODOC PHYSICIAN: REFERRING PHYSICIAN: FOSTER FLANAGAN MD DATE OF SERVICE: 11/27/19 Discharge Plan Patient Name: JERE MEDELLIN Facility: [facility]:[place] : 1955 Planned Disposition: Anticipated Discharge Date: Discharge Date: Expected LOS: Initial Reviewer: [email or web address] Initial Review Date: 11/25/2019 Generated: 11/27/19 3:40 pm Comments DCP- Discharge Planning Updated by [email or web address]: Mya Arias on 11/27/19 1:[address] Patient Name: JERE MEDELLIN Admission Status: ER Accout number: [id number] Admission Date: 11-25-2019 : 1955 Admission Diagnosis: Attending: FOSTER FLANAGAN Current LOS: 2 Anticipated DC Date: Planned Disposition: Primary Insurance: MEDICAID [place] PEND[place] Discharge Planning Comments: CM met with patient to complete initial dc planning assessment. CM educated patient on the CM role and verbal consent given by patient to complete assessment. CM verified patient's address, phone number, and emergency contact phone numbers. Patient lives at home with significant other (Alma). At discharge patient plans to return home and feels this is a safe discharge. CM discussed availability of home health, rehab services, and medical equipment. Patient denied known discharge needs at this time. Transportation provider at discharge will be Alma . CM will continue to follow and will assist as needed with dc plans/needs. Marketing Proposal Coordinator: Mya Arias DCPIA - Discharge Planning Initial Assessment Updated by [email or web address]: Mya Arias on 11/27/19 2:38 pm * Is the patient Alert and Oriented? Yes * How many steps to enter\exit or inside your home? 0/1 * PCP does not have one * Pharmacy [facility] * Preadmission Environment Home with Family * ADLs Independent * Equipment Cane Rolling Walker Shower Chair * List name and contact numbers for known caregivers / representatives who currently or will assist patient after discharge: Alma [phone] * Verbal permission to speak to the caregivers and representatives has been obtained from the patient. Yes * Community resources currently utilized None * Additional services required to return to the preadmission environment? No * Can the patient safely return to the preadmission environment? Yes * Has this patient been hospitalized within the prior 30 days at any hospital? Yes Patient Name: JERE MEDELLIN Page [id number] at 1441 All edits/amendments must be made on the electronic document DICTATION DATE: 11/27/19 1440 TELEPHONE AD TAKER: ZEN 11/27/19 1440 RPT#: [id number] DC DATE: STATUS: ADM IN [facility] [address] [place] [address] END OF REPORT
[2019-11-27 16:00] VITALS: BP 102/56
[2019-11-27 20:00] VITALS: BP 92/56
--- NOTE | 2019-11-27 21:00 | NUR ---
EVENING ROUNDS COMPLETED. VSS, AAOX3, NO S/S OF DISTRESS. SCD'S ON. FSBS 381. WILL TREAT.PT PLACED ON NO CAFFEINE/NPO AFTER MIDNIGHT FOR CARDIAC STRESS TEST. PT DENIES ANY FURTHER NEEDS AT THIS TIME. WILL CTM. CL WITHIN REACH.
[2019-11-28] VITALS: BP 107/57
[2019-11-28 04:00] VITALS: BP 121/66
[2019-11-28 06:52] LABS: BASOPHILS 0 % (0-2); EOSINOPHILS 0 % (0-7); HEMATOCRIT 34.3 % (36.0-48.0); HEMOGLOBIN 11.1 g/dL (12-16); IMMATURE GRANULOCYTES 0.2 % (0-5); LYMPHOCYTES 21.5 % (15-50); MCH 28.6 pg (26.0-34.0); MCHC 32.4 g/dL (31.0-37.0); MCV 88.4 fL (80.0-100.0); NEUTROPHILS 73.3 % (40-80); PLATELET COUNT 115 10x3/uL (130-400); RBC 3.88 10x6/uL (4.00-5.40); RDW 14.7 % (11.5-14.5)
[2019-11-28 06:54] LABS: WBC 6.4 10x3/uL (4.8-10.8)
[2019-11-28 07:27] LABS: ANION GAP 8.5 mmol/L (8-16); CALCIUM 7.3 mg/dL (8.5-10.1); CARBON DIOXIDE 32.1 mmol/L (21.0-32.0); MAGNESIUM - SERUM 1.7 mg/dL (1.8-2.4); POTASSIUM - SERUM 3.6 mmol/L (3.5-5.1)
[2019-11-28 08:00] VITALS: BP 102/59
--- NOTE | 2019-11-28 12:54 | CN ---
PATIENT NAME:JERE MICHEL MEDICAL RECORD: [id number] : 53 LOCATION:D. D.2133 ADMIT DATE: 11/25/19 ACCOUNT: [id number] CONSULTING PHYSICIAN: AMY OVALLE MD REFERRING PHYSICIAN: FOSTER FLANAGAN MD DATE OF CONSULTATION: 11/27/2019 ADMITTING DIAGNOSES: 1. Chest pain. 2. Smoking history. HISTORY OF PRESENT ILLNESS: Mrs. Michel had a fall in her bathtub. She did not fall onto her chest or have any trauma to the chest area. She has been having a dull aching pressure sensation like a tightness centered on the mid sternum since. It has been intermittent on and off many typical components for angina, it is not positional at all. She has no history of ischemic heart disease. Her EKG is with no acute ST-T abnormalities. PHYSICAL EXAMINATION: CONSTITUTIONAL/GENERAL APPEARANCE: Well nourished, well developed, appears stated age. EYES: Lids and conjunctivae noninjected. No discharge. No pallor. ENT: Lips within normal limit. No cyanosis. No pallor. NECK: Carotid arteries, bilateral normal upstroke. No bruits. No thrills. No jugular venous pressure or distention. CERVICAL LYMPH NODES: Nontender. Nonenlarged. THYROID: Not enlarged. No nodules. CARDIOVASCULAR: Precordial exam, nondisplaced. No heaves or pericardial thrills. Rate and rhythm, regular. Heart sounds, normal S1, normal S2. No S3, no gallop, no rub. Systolic murmur, not heard. Diastolic murmur, not heard. RESPIRATORY: Respiratory effort, unlabored. Normal curvature. No thoracic deformity. No chest wall tenderness. Percussion, resonant. Auscultation, clear. No wheezes, no rales, no rhonchi. ABDOMEN: Soft, nondistended, nontender. No abdominal pain, no vomiting and normal appetite. MUSCULOSKELETAL: No joint tenderness, normal gait, normal tone. SKIN: Warm and dry. OVERALL IMPRESSION: Chest discomfort. We will risk stratify with stress testing Cardiolite imaging. Further care depends on stress test. TRANSINT:[id number] Voice Confirmation ID: [id number] DOCUMENT ID: [id number] AMY OVALLE MD at 1254 CC: [id number] DICTATION DATE: 11/27/19 1218 VMWARE ADMINISTRATOR: 11/27/19 1607 ADM IN [facility] [address] [place] [id number]
--- NOTE | 2019-11-28 12:54 | EC ---
PATIENT:JERE MEDELLIN DATE OF SERVICE: 11/25/19 SEX: F MEDICAL RECORD: [id number] DATE OF : 53 LOCATION:D.M2 D.213 AGE OF PATIENT: 64 ADMISSION DATE: 11/25/19 REFERRING PHYSICIAN: INTERPRETING PHYSICIAN: AMY OVALLE MD ECHOCARDIOGRAM REPORT ECHO CHARGES 4 ECHO COMPLETE Date: 11/27/19 CLINICAL DIAGNOSIS: CP ECHOCARDIOGRAPHIC MEASUREMENTS (adult normal given) AC root (d.<3.7cm) 3.5 cm LV Septum d (<1.2 cm> 1.4 cm Valve Excursion 2.0 cm LV Septum (systole) 20 cm Left Atria (s.<4.0cm> 3.2 cm LVPW d(<1.2cm) 1.4 cm RV (d.<2.3cm) 2.9 cm LVPW (sytole) 21 cm LV diastole(<5.6CM) 4.9 cm MV E-F(>70mm/sec) cm LV systole 2.3 cm LVOT Diameter 1.9 cm MV exc.(>10mm) cm Est.ejection fraction (50-75%) % DOPPLER: LVIT cm/sec A 83.0 cm/sec E 67.0 cm/sec LA cm/sec RVSP 17.0 mmHg LVOT 117 cm/sec AOP1/2T m/s Asc. Ao 131 cm/sec RVOT 87.0 cm/sec RA cm/sec PA 105 cm/sec AV Gradient Peak 6.9 mmHg AV Mean 4.3 mmHg AV Area 2.2 cm MV Gradient Peak 4.0 mmHg MV Mean 2.0 mmHg MV Area cm COMMENTS: Process Improvement Consultant: 1 FANTASMA CERVANTES Artist Relationship Manager: 2 Dr. Perez TAPE# PACS Pericardial Effusion N DATE OF SERVICE: 11/27/2019 FINDINGS: 1. Left ventricular chamber size is within normal limits. Left ventricular systolic function is normal. Overall ejection fraction estimated at 60%. 2. Left atrium, right atrium, and right ventricle chamber sizes are within normal limits. 3. Valvular structures have normal structure and motion. 4. Doppler interrogation reveals no significant valvular insufficiency or stenosis and pulmonary systolic pressure is normal estimated at 17 mmHg. ECHOCARDIOGRAM REPORT [id number] JERE MEDELLIN 5. No evidence of pericardial effusion or left ventricular thrombus. TRANSINT:[id number] Voice Confirmation ID: [id number] DOCUMENT ID: [id number] AMY OVALLE MD at 1254 CC: [id number] DICTATION DATE: 11/27/19 1508 FILM CASTING OPERATOR: 11/27/19 2301 ADM IN [place] [id number] [place] [address]
--- NOTE | 2019-11-28 19:28 | NUR ---
AT REST WITH EYES CLOSED BED IS LOW AND LOCKED CALL LIGHT IN REACH
[2019-11-28 20:00] VITALS: BP 111/68
[2019-11-29] VITALS: BP 110/59
[2019-11-29 04:00] VITALS: BP 126/61
--- NOTE | 2019-11-29 05:19 | NUR ---
I have reviewed this patient and I concur with the Shift Assessment completed by the Licensed Practical Nurse today this shift.
[2019-11-29 06:40] LABS: BASOPHILS 0 % (0-2); EOSINOPHILS 0.2 % (0-7); HEMATOCRIT 36.1 % (36.0-48.0); HEMOGLOBIN 11.5 g/dL (12-16); IMMATURE GRANULOCYTES 0.3 % (0-5); LYMPHOCYTES 27.8 % (15-50); MCH 28.5 pg (26.0-34.0); MCHC 31.9 g/dL (31.0-37.0); MCV 89.4 fL (80.0-100.0); MEAN PLATELET VOLUME 10.8 fL (7.4-10.4); MONOCYTES 5.3 % (2-11); NEUTROPHILS 66.4 % (40-80); PLATELET COUNT 118 10x3/uL (130-400); RBC 4.04 10x6/uL (4.00-5.40); RDW 14.7 % (11.5-14.5); WBC 6.4 10x3/uL (4.8-10.8)
[2019-11-29 07:04] LABS: CALC OSMOLALITY 288 mosm/kg (275-300); CALCIUM 7.1 mg/dL (8.5-10.1); CARBON DIOXIDE 33.2 mmol/L (21.0-32.0); CHLORIDE - SERUM 104 mmol/L (98-107); CREATININE - SERUM 0.8 mg/dL (0.6-1.3); MAGNESIUM - SERUM 1.8 mg/dL (1.8-2.4); POTASSIUM - SERUM 3.5 mmol/L (3.5-5.1); SODIUM 142 mmol/L (136-145); UREA NITROGEN 21 mg/dL (7-18); eGFR NON AFRICAN AMERICAN 76 mL/min (90-120)
[2019-11-29 07:06] LABS: GLUCOSE 154 mg/dL (74-106)
[2019-11-29 07:49] VITALS: BP 142/64
--- NOTE | 2019-11-29 08:00 | NUR ---
AM ROUNDS COMPLETED. INTRODUCED MYSELF TO PT PRIMARY RN FOR TODAYS SHIFT. SHIFT ASSESSMENT COMPLETED. PT SITTING UP IN BED RESTING QUIETLY PT STATES SHE WANTS TO SLEEP LONGER. NO CURRENT NEEDS AT THIS TIME. CL IN REACH, BED IN LOWEST, SIDE RAILS X2. WILL CTM.
[2019-11-29 11:06] VITALS: BP 118/66
--- NOTE | 2019-11-29 11:35 | NUR ---
FSBS 179. PROVIDED PT WITH INSULIN PER SS. PT LYING BACK IN BED RESTING QUIETLY VISITING WITH FAMILY AT BEDSIDE. PT DENIES ANY CURRENT PAIN OR NEEDS AT THIS TIME. WILL CTM.
--- NOTE | 2019-11-29 13:13 | NUR ---
Nutrition Follow-up: Pt somewhat lethargic this AM during interview. Poor PO intake. MD reports poor compliance with diabetic diet; drinking regular cokes. Diet: Diabetic Wt: 164# (11/26) Last BM: 11/28 per pt Labs noted: Glu 154, Ca 7.1 Meds noted: Solumedrol, Lasix, Micro K, Humalog, 1/2 NS @ 50 -Continue current diet as tolerated. -Encourage PO intake and diet adherence. -Need new wt; noted daily wts ordered. -RD following.
--- NOTE | 2019-11-29 13:22 | NUR ---
CONSENTS OBTAINED AND PLACED IN CHART FOR CARDIAC CATH. PRE MEDICATIONS GIVEN R/T PTS CONTRAST ALLERGY. PT VERBALIZED UNDERSTANDING AND DENIES ANY QUESTIONS OR CONCERNS. CL IN REACH. WILL CTM.
--- NOTE | 2019-11-29 15:00 | NUR ---
ORCHESTRA DIRECTOR CALLED TO PRE-OP PT. PRE-OP MEDICATIONS GIVEN. PT REMOVED HER BRIEFS AND IS SITTING UP IN BED WAITING TO HAVE PROCEDURE DONE. NO CURRENT NEEDS AT THIS TIME. WILL CPOC.
--- NOTE | 2019-11-29 15:25 | NUR ---
CATH TEAM AT BEDSIDE TO TAKE PT TO PROCEDURE.
--- NOTE | 2019-11-29 16:30 | NUR ---
PT BACK FROM [employer] AND HAS A AIR INFLATED BAND TO HER R.WRIST. NO S/S OF BLEEDING OR HEMATOMA NOTED. PT AWAKE AND SITTING UP IN BED. TELEMETRY BACK IN PLACE. VSS AND BEING MONITERED PER POST PROCEDURE PROTOCOL. FAMILY AT BEDSIDE. NO CURRENT NEEDS AT THIS TIME. WILL CTM.
--- NOTE | 2019-11-29 17:00 | NUR ---
FSBS 386 PROVIDED PT WITH INSULIN PER SS. PT SITTING UP IN BED READY TO EAT DINNER. VSS AND STILL BEING MONITERED PER POST PROCEDURE PROTOCOL. R.WRIST BAND STILL CDI NO S/S OF BLEEDING OR HEMATOMA NOTED. WILL REMOVE AIR PER POLICY AND CPOC.
--- NOTE | 2019-11-29 18:04 | NUR ---
REMOVED 5CC OF AIR FROM R.WRIST BAND AND NO BLEEDING NOTED. WILL CTM AND REMOVE AIR PER PROTOCOL. PT STILL EATING DINNER. VSS, NO CURRENT NEEDS. WILL CTM.
--- NOTE | 2019-11-29 19:16 | NUR ---
REMOVED REMAINING AIR FROM R.WRIST BAND AND NO BLEEDING NOTED. BEDSIDE SHIFT REPORTING DONE. PT DENIES ANY CURRENT PAIN OR NEEDS. CL IN REACH, BED IN LOWEST, SIDE RAILS X2. WILL CTM.
--- NOTE | 2019-11-29 19:30 | NUR ---
NO SPUTUM COLLECTED PT DIDNT PROVIDE SPECIMEN.
--- NOTE | 2019-11-29 19:35 | NUR ---
REPORT RECEIVED. BEDSIDE SHIFT REPORT COMPLETE. PT LAYING IN BED RR EVEN AND UNALBORED. NO S/SX OF DISTRESS OBSERVED. TR BAND ON RIGHT WRIST DEFLATED, NO BLEEDING NOTED AT THIS TIME. PT DENIES NEEDS. CALL LIGHT IN REACH. WILL CTM.
[2019-11-29 20:19] VITALS: BP 136/49
--- NOTE | 2019-11-29 20:36 | NUR ---
PT PROVIDED WITH INCONT CARE AND FULL LINEN CHANGE.
[2019-11-30 00:21] VITALS: BP 130/66
[2019-11-30 05:29] VITALS: BP 162/82
[2019-11-30 06:26] LABS: BASOPHILS 0 % (0-2); EOSINOPHILS 0 % (0-7); HEMATOCRIT 35.4 % (36.0-48.0); HEMOGLOBIN 11.4 g/dL (12-16); IMMATURE GRANULOCYTES 0.2 % (0-5); LYMPHOCYTES 11.2 % (15-50); MCH 28.5 pg (26.0-34.0); MCHC 32.2 g/dL (31.0-37.0); MCV 88.5 fL (80.0-100.0); MEAN PLATELET VOLUME 10.7 fL (7.4-10.4); NEUTROPHILS 83.6 % (40-80); PLATELET COUNT 103 10x3/uL (130-400); RDW 14.6 % (11.5-14.5); WBC 5.2 10x3/uL (4.8-10.8)
[2019-11-30 06:48] LABS: ANION GAP 10.4 mmol/L (8-16); CALCIUM 7.3 mg/dL (8.5-10.1); CARBON DIOXIDE 30.5 mmol/L (21.0-32.0); CREATININE - SERUM 0.9 mg/dL (0.6-1.3); MAGNESIUM - SERUM 1.8 mg/dL (1.8-2.4); POTASSIUM - SERUM 3.9 mmol/L (3.5-5.1)
--- NOTE | 2019-11-30 07:20 | NUR ---
PT RESTING, RR EVEN AND UNLABORED ON 2L NC. NO DISTRESS NOTED. BED IN LOWEST POSITION. CALL LIGHT WITHIN REACH. BED ALARM ON AND FUNCTIONING CORRECTLY. BED IN LOWEST POSITION. WILL CONTINUE TO MONITOR.
[2019-11-30 09:15] VITALS: BP 127/63
--- NOTE | 2019-11-30 09:53 | NUR ---
ACCIDENTALLY PUT MORPHINE IN SHARPS BEFORE DRAWING UP MEDICATION. PHARMACY AWARE OF SITUATION. ANOTHER MORPHINE VIAL WAS PULLED AND ADMINISTERED PER ORDER. VIAL CAN BE SEEN THROUGH SHARPS CONTAINER. RAJESH STRATTON RN WITNESSED.
--- NOTE | 2019-11-30 11:45 | NUR ---
BHAVNA SARABIA LPN TO GIVE MS ORDERED. SHE HAD PLACED AN UPOPENED VIAL IN THE SHARPS BY MISTAKE. SEEN.
--- NOTE | 2019-11-30 14:49 | NUR ---
PT SPOKE WITH CROSSING GATEMAN FOR SEVERAL MINUTES ABOUT POC. PT STATES SHE DOES NOT KNOW IF SHE WILL BE ABLE TO MAKE IT TO HER FOLLOW UP APPOINTMENTS DUE TO NO INSURE AND FINANCIAL ISSUES. D/C INSTRUCTIONS REVIEWED WITH PT AND FAMILY. VERBALIZED UNDERSTANDING AND NO FURTHER QUESTIONS AT THIS TIME. IV D/C WITH CATHTETER TIP INTACT. PT LEFT VIA WHEELCHAIR TO PERSONAL VEHICLE WITH ALL BELONGINGS
--- NOTE | 2019-11-30 15:51 | MORECARE ---
CASE MANAGEMENT DISCHARGE SUMMARY PATIENT: JERE MEDELLIN UNIT: [id number] ADM DATE: 11/25/19 AGE: 64 : 53 SEX: F ROOM/BED: D.4243 AUTHOR: CHARO,DOC PHYSICIAN: REFERRING PHYSICIAN: FOSTER FLANAGAN MD DATE OF SERVICE: 11/30/19 Discharge Plan Patient Name: JERE MEDELLIN Facility: [facility]:[place] : 1955 Planned Disposition: Anticipated Discharge Date: Discharge Date: 11/30/2019 Expected LOS: Initial Reviewer: [email or web address] Initial Review Date: 11/25/2019 Generated: 11/30/19 4:50 pm Comments DCP- Discharge Planning Updated by [email or web address]: Nisha Garcia on 11/30/19 2:[address] CM was asked to speak with patient regarding discharge medications. Patient states that she doesn't have any insurance and she doesn't know how she will be able to get her meds. DCP- Discharge Planning Updated by [email or web address]: Mya Arias on 11/27/19 1:[address] Patient Name: JERE MEDELLIN Admission Status: ER Accout number: [id number] Admission Date: 11-25-2019 : 1955 Admission Diagnosis: Attending: FOSTER FLANAGAN Current LOS: 2 Anticipated DC Date: Planned Disposition: Primary Insurance: MEDICAID [place] PENDING Discharge Planning Comments: CM met with patient to complete initial dc planning assessment. CM educated patient on the CM role and verbal consent given by patient to complete assessment. CM verified patient's address, phone number, and emergency contact phone numbers. Patient lives at home with significant other (Alma). At discharge patient plans to return home and feels this is a safe discharge. CM discussed availability of home health, rehab services, and medical equipment. Patient denied known discharge needs at this time. Transportation provider at discharge will be Alma . CM will continue to follow and will assist as needed with dc plans/needs. Metal Rolling Mill Operator: Mya Arias DCPIA - Discharge Planning Initial Assessment Updated by [email or web address]: Mya Arias on 11/27/19 2:38 pm * Is the patient Alert and Oriented? Yes * How many steps to enter\exit or inside your home? 0/1 * PCP does not have one * Pharmacy [facility] * Preadmission Environment Home with Family * ADLs Independent * Equipment Cane Rolling Walker Shower Chair * List name and contact numbers for known caregivers / representatives who currently or will assist patient after discharge: Alma [phone] * Verbal permission to speak to the caregivers and representatives has been obtained from the patient. Yes * Community resources currently utilized None * Additional services required to return to the preadmission environment? No * Can the patient safely return to the preadmission environment? Yes * Has this patient been hospitalized within the prior 30 days at any hospital? Yes Last DP export: 11/27/19 1:41 p Patient Name: JERE MEDELLIN Page [id number] at 1551 All edits/amendments must be made on the electronic document DICTATION DATE: 11/30/19 1550 INDIVIDUALIZED EDUCATION PLAN AIDE: ZEN 11/30/19 1550 RPT#: [id number] DC DATE:11/30/19 STATUS: DIS IN [facility] [address] [place] [address] END OF REPORT
--- NOTE | 2019-11-30 16:22 | MORECARE ---
CASE MANAGEMENT DISCHARGE SUMMARY PATIENT: JERE MEDELLIN UNIT: [id number] ADM DATE: 11/25/19 AGE: 64 : 53 SEX: F ROOM/BED: D.9743 AUTHOR: CHARO,DOC PHYSICIAN: REFERRING PHYSICIAN: FOSTER VAZQUEZ MD DATE OF SERVICE: 11/30/19 Discharge Plan Patient Name: JERE MEDELLIN Facility: [facility]:[place] : 1955 Planned Disposition: Anticipated Discharge Date: Discharge Date: 11/30/2019 Expected LOS: Initial Reviewer: [email or web address] Initial Review Date: 11/25/2019 Generated: 11/30/19 5:21 pm Comments DCP- Discharge Planning Updated by [email or web address]: Nisha Garcia on 11/30/19 3:[address] CM was asked to speak with patient regarding discharge medications. Patient states that she doesn't have any insurance and she doesn't know how she will be able to get her meds. CM contacted med data and spoke with Brianda she stated that the patient has Medicaid pending for a spend-down. They are just needing patient to bring in proof of income and banking information. CM printed off application for [facility] and explained to patient and friend Alma that they could possibly help with medications and she could possibly f/u there and see a physician. CM looked up all her discharge medications and gave prices using [employer] [facility] discounts. CM spoke to Dr. Vazquez and explained that patient is uninsured and will not be able to afford Levemir insulin or Novalog insulin but that she could get Novolin 70/30 @ [facility] for $25.00. Dr. Vazquez stated that patient could discharge home on Novolin 70/30 60u twice daily. When CM discussed discharge medications with patient and Alma CM explained that [facility] ([facility] may not be the cheapest for her medications and she could ask them to transfer Rx to another pharmacy. CM gave patient CM's direct number if she has problems to call. CM will continue to follow and assist as needed with discharge planning / needs. DCP- Discharge Planning Updated by [email or web address]: Mya Arias on 11/27/19 1:[address] Patient Name: JERE MEDELLIN Admission Status: ER Accout number: [id number] Admission Date: 11-25-2019 : 1955 Admission Diagnosis: Attending: FOSTER VAZQUEZ Current LOS: 2 Anticipated DC Date: Planned Disposition: Primary Insurance: MEDICAID [place] PENDING Discharge Planning Comments: CM met with patient to complete initial dc planning assessment. CM educated patient on the CM role and verbal consent given by patient to complete assessment. CM verified patient's address, phone number, and emergency contact phone numbers. Patient lives at home with significant other (Alma). At discharge patient plans to return home and feels this is a safe discharge. CM discussed availability of home health, rehab services, and medical equipment. Patient denied known discharge needs at this time. Transportation provider at discharge will be Alma . CM will continue to follow and will assist as needed with dc plans/needs. C.O.D. Biller: Mya Arias DCPIA - Discharge Planning Initial Assessment Updated by [email or web address]: Mya Arias on 11/27/19 2:38 pm * Is the patient Alert and Oriented? Yes * How many steps to enter\exit or inside your home? 0/1 * PCP does not have one * Pharmacy [facility] * Preadmission Environment Home with Family * ADLs Independent * Equipment Cane Rolling Walker Shower Chair * List name and contact numbers for known caregivers / representatives who currently or will assist patient after discharge: Alma [phone] * Verbal permission to speak to the caregivers and representatives has been obtained from the patient. Yes * Community resources currently utilized None * Additional services required to return to the preadmission environment? No * Can the patient safely return to the preadmission environment? Yes * Has this patient been hospitalized within the prior 30 days at any hospital? Yes Last DP export: 11/30/19 2:51 pm Patient Name: JERE MEDELLIN Page [phone] at 1622 All edits/amendments must be made on the electronic document DICTATION DATE: 11/30/191 GASOLINE CATALYST OPERATOR: ZEN 11/30/19 162 RPT#: [id number] DC DATE:11/30/19 STATUS: DIS IN [place] [id number] [place] [id number] END OF REPORT
== END 2019-11-30 15:00 | disposition home or self-care (01) | DRG 287 ==
LOC: D.ER 11:28 → D.M2 13:37 → OBSVTIME 13:37 → D.M2 17:01 → D.SDCHOLD 11-26 15:14 → D.M2 11-26 15:14
PROVIDERS: Family Medicine; Internal Medicine Interventional Cardiology; ADMIT Internal Medicine Nephrology; ATTEND Internal Medicine Nephrology
PROC: B2151ZZ Fluoroscopy of Left Heart using Low Osmolar Contrast (ICD-10-PCS; 2019-11-29)
PROC: 4A023N7 Measurement of Cardiac Sampling and Pressure, Left Heart, Percutaneous Approach (ICD-10-PCS; 2019-11-29)
PROC: B2111ZZ Fluoroscopy of Multiple Coronary Arteries using Low Osmolar Contrast (ICD-10-PCS; principal; 2019-11-29 15:13)
DX: R07.89 Other chest pain (principal); J44.1 Chronic obstructive pulmonary disease with (acute) exacerbation; E87.6 Hypokalemia; E83.42 Hypomagnesemia; W18.2XXA Fall in (into) shower or empty bathtub, initial encounter; Z91.81 History of falling; E11.40 Type 2 diabetes mellitus with diabetic neuropathy, unspecified; F32.9 Major depressive disorder, single episode, unspecified; Z91.19 Patient's noncompliance with other medical treatment and regimen

== ENCOUNTER 2020-03-25 13:16 | Emergency (ER) | payer SELFPAY ==
[2019-11-27 12:17] VITALS: BMI 28.1
== END 2020-03-25 13:58 | disposition left against medical advice (07) ==
LOC: D.ER 13:16
DX: R46.89 Other symptoms and signs involving appearance and behavior (principal)

== ENCOUNTER 2020-03-27 10:04 | Emergency (ER) | payer SELFPAY ==
[~2020-03-27] VITALS: Ht 162.6 cm; Wt 82.3 kg
[2020-03-27 10:08] VITALS: Ht 162.6 cm; Wt 82.3 kg
[2020-03-27 10:22] LABS: BASOPHILS 0.3 % (0-2); EOSINOPHILS 2.8 % (0-7); HEMATOCRIT 43.8 % (36.0-48.0); HEMOGLOBIN 14.7 g/dL (12-16); IMMATURE GRANULOCYTES 0.3 % (0-5); LYMPHOCYTES 34.2 % (15-50); MCH 28.6 pg (26.0-34.0); MCHC 33.6 g/dL (31.0-37.0); MCV 85.2 fL (80.0-100.0); MEAN PLATELET VOLUME 11.6 fL (7.4-10.4); MONOCYTES 5.5 % (2-11); NEUTROPHILS 56.9 % (40-80); RBC 5.14 10x6/uL (4.00-5.40); RDW 13.7 % (11.5-14.5); WBC 6.7 10x3/uL (4.8-10.8)
[2020-03-27 10:32] VITALS: BP 150/82
[2020-03-27 10:38] LABS: ALBUMIN 3.4 g/dL (3.4-5.0); ANION GAP 10.1 mmol/L (8-16); BILIRUBIN - TOTAL 0.72 mg/dL (0.2-1.3); CALCIUM 8.5 mg/dL (8.5-10.1); CARBON DIOXIDE 27.9 mmol/L (21.0-32.0); CREATININE - SERUM 1.2 mg/dL (0.6-1.3); MAGNESIUM - SERUM 1.6 mg/dL (1.8-2.4); PROTEIN - SERUM 7.6 g/dL (6.4-8.2)
[2020-03-27 10:41] LABS: PLATELET COUNT 141 10x3/uL (130-400)
== END 2020-03-27 10:32 | disposition left against medical advice (07) ==
LOC: D.ER 10:04
PROVIDERS: Family Medicine
DX: E11.40 Type 2 diabetes mellitus with diabetic neuropathy, unspecified (principal); Z91.14 Patient's other noncompliance with medication regimen; Z53.29 Procedure and treatment not carried out because of patient's decision for other reasons; J44.9 Chronic obstructive pulmonary disease, unspecified; K21.9 Gastro-esophageal reflux disease without esophagitis; Z79.4 Long term (current) use of insulin

== ENCOUNTER → 2021-03-10 21:27 | Outpatient (CLI) | payer OTHER ==
[2020-03-27 10:08] VITALS: BMI 31.1
== END | disposition home or self-care (01) ==
LOC: D.LABREF 21:27
PROVIDERS: ATTEND Podiatrist Foot & Ankle Surgery
DX: L02.612 Cutaneous abscess of left foot (principal)

== ENCOUNTER 2021-03-15 19:17 | Inpatient (IN) | payer MEDICARE ==
[~2021-03-15] VITALS: Ht 162.6 cm; Wt 74.4 kg
--- NOTE | 2021-03-15 19:39 | NUR ---
FSBS READS "HI". GREATER THAN 600. MD NOTIFIED.
[2021-03-15 20:08] VITALS: BP 94/56
[2021-03-15 20:16] LABS: HEMATOCRIT 26.8 % (36.0-48.0); HEMOGLOBIN 8.5 g/dL (12-16); MCH 28.5 pg (26.0-34.0); MCHC 31.6 g/dL (31.0-37.0); MCV 90.3 fL (80.0-100.0); MEAN PLATELET VOLUME 10.3 fL (7.4-10.4); PLATELET COUNT 205 10x3/uL (130-400); RBC 2.97 10x6/uL (4.00-5.40); RDW 15.6 % (11.5-14.5); WBC 26.3 10x3/uL (4.8-10.8)
[2021-03-15 20:22] LABS: APTT 31.8 SECONDS (22.8-39.4); INR 1.65 (0.85-1.17); PROTIME 18.1 SECONDS (11.6-15.0)
[2021-03-15 20:40] VITALS: BP 100/64
[2021-03-15 20:41] LABS: ALBUMIN 2.2 g/dL (3.4-5.0); ALKALINE PHOSPHATASE 122 U/L (30-120); ALT (SGPT) 21 U/L (10-68); BILIRUBIN - TOTAL 0.94 mg/dL (0.2-1.3); CALCIUM 8.3 mg/dL (8.5-10.1); CARBON DIOXIDE 23.1 mmol/L (21.0-32.0); CKMB 2.5 U/L (0.0-3.6); CREATINE KINASE 139 UL (21-215); CREATININE - SERUM 1.8 mg/dL (0.6-1.3); MAGNESIUM - SERUM 1.6 mg/dL (1.8-2.4); POTASSIUM - SERUM 3.7 mmol/L (3.5-5.1); PROTEIN - SERUM 7.7 g/dL (6.4-8.2); UREA NITROGEN 32 mg/dL (7-18); eGFR NON AFRICAN AMERICAN 30 mL/min (90-120)
[2021-03-15 20:42] LABS: TROPONIN-I < 0.017 ng/mL (0.000-0.060)
[2021-03-15 20:53] LABS: CALC OSMOLALITY 276 mosm/kg (275-300)
[2021-03-15 20:54] LABS: LYMPHOCYTES 9 % (15-50); MONOCYTES 3 % (2-11); NEUTROPHILS 88 % (40-80); PLATELET ESTIMATE NORMAL
[2021-03-15 20:55] LABS: CHLORIDE - SERUM 81 mmol/L (98-107); GLUCOSE 765 mg/dL (74-106); POLYCHROMASIA OCC; SODIUM 115 mmol/L (136-145)
[2021-03-15 20:56] LABS: ANISOCYTOSIS OCC
[2021-03-15 21:31] LABS: BILIRUBIN NEGATIVE (NEGATIVE); KETONE NEGATIVE (NEGATIVE); NITRITE NEGATIVE (NEGATIVE); UROBILINOGEN NORMAL mg/dL (< 2)
[2021-03-15 21:33] LABS: BACTERIA FEW HPF (NONE SEEN); SQUAMOUS EPITHELIAL 0-5 HPF (0-4); WHITE CELLS - URINE OCC HPF (0-4)
[2021-03-15 21:34] LABS: AMORPHOUS SEDIMENT FEW LPF (NONE SEEN)
--- NOTE | 2021-03-15 23:44 | NUR ---
PTP WITH 401 BG AAT THIS TIME
[2021-03-16] VITALS (26 sets, daily range): BP systolic 75–124; BP diastolic 42–81; BMI 27.5
[2021-03-16 00:20] LABS: HEMATOCRIT 28.2 % (36.0-48.0); HEMOGLOBIN 9.4 g/dL (12-16)
--- NOTE | 2021-03-16 01:01 | NUR ---
CALLED [facility]IN AT THIS TIME AND RECEIVED VERBAL ORDER FOR 500ML BOLUS TO BE GIVE TO PT FOR BP OF 73/46
--- NOTE | 2021-03-16 01:20 | NUR ---
RECEIVED REPORT FROM Essence NOE RN. ASSUMED CARE OF PT.
[2021-03-16 04:25] LABS: RETIC 2.24 % (0.45-2.28)
[2021-03-16 04:41] LABS: HEMATOCRIT 24.9 % (36.0-48.0); HEMOGLOBIN 8.2 g/dL (12-16)
[2021-03-16 04:46] LABS: % SATURATION 13 % (15-55); IRON 9 ug/dl (35-150); TOTAL IRON BIND CAPACITY 69 ug/dl (260-445); UNSAT IRON BIND CAPACITY 60 ug/dl (150-375)
[2021-03-16 04:58] LABS: CARBON DIOXIDE 21.9 mmol/L (21.0-32.0)
[2021-03-16 05:46] LABS: CREATININE - SERUM 1.3 mg/dL (0.6-1.3)
[2021-03-16 05:47] LABS: CALCIUM 6.7 mg/dL (8.5-10.1); POTASSIUM - SERUM 2.9 mmol/L (3.5-5.1)
[2021-03-16 07:31] LABS: ANION GAP 14.2 mmol/L (8-16); CALCIUM 7.1 mg/dL (8.5-10.1); CARBON DIOXIDE 21.1 mmol/L (21.0-32.0); CREATININE - SERUM 1.2 mg/dL (0.6-1.3); POTASSIUM - SERUM 4.3 mmol/L (3.5-5.1)
[2021-03-16 07:47] LABS: MAGNESIUM - SERUM 1.5 mg/dL (1.8-2.4)
--- NOTE | 2021-03-16 10:43 | NUR ---
0700 BEDSIDE SHIFT REPORT RECIEVED AND CARE ASSUMED OF THE PATIENT.. SEE FLOW SHEET FOR SHIFT ASSESMENT FINDINGS.. 0710 DR RODRIGUEZ IS HERE... UPDATE IS GIVEN.. PATIENT IS INCONTINENET OF STOO; AND URINE PARTIAL BATH WITH PAD CHANGE DONE.. NO BLOOD OR MAROON NOTED IN THE STOOL AT THIS TIME.. 0900 DR CAROL ACOSTA TO SEE PATIENT UPDATE IS GIVEN.. VO RECIEVED TO HOLD 2ND UNIT OF PRBC AT THIS TIME..
[2021-03-16 12:13] LABS: HEMATOCRIT 30.4 % (36.0-48.0); HEMOGLOBIN 10.1 g/dL (12-16)
[2021-03-16 12:17] LABS: CARBON DIOXIDE 22.3 mmol/L (21.0-32.0); CREATININE - SERUM 1.3 mg/dL (0.6-1.3); MAGNESIUM - SERUM 1.4 mg/dL (1.8-2.4); POTASSIUM - SERUM 4.3 mmol/L (3.5-5.1)
--- NOTE | 2021-03-16 12:50 | NUR ---
1230 INCONTINENT OF STOOL AND URING.. COMPLETE CHG BATH AND LINEN CHANGE DINE PATIENT SEEMS MORE AWAKE AND APPROPRIATE AT THIS TIME..
--- NOTE | 2021-03-16 13:15 | NUR ---
1300 DR SANTIAGO IN TO SEE PATIENT.. WRAPPED AFFECTED FOOT WITH GAUZE
--- NOTE | 2021-03-16 15:02 | NUR ---
1500 PT TRANSPORTED TO [facility] VIA BED...
--- NOTE | 2021-03-16 15:56 | NUR ---
1545 RETURNED FROM [facility] VIA BED.. PT IS AAO 1600 FAMILY IN O SEE PATIENT..
[2021-03-16 16:14] LABS: HEMATOCRIT 32.2 % (36.0-48.0); HEMOGLOBIN 10.6 g/dL (12-16)
[2021-03-16 16:24] LABS: ANION GAP 14.4 mmol/L (8-16); CARBON DIOXIDE 20.9 mmol/L (21.0-32.0); CREATININE - SERUM 1.1 mg/dL (0.6-1.3); MAGNESIUM - SERUM 1.5 mg/dL (1.8-2.4); POTASSIUM - SERUM 4.3 mmol/L (3.5-5.1)
--- NOTE | 2021-03-16 17:58 | NUR ---
1715 PT C/O PAIN LUANNE WHARTON CALLED FOR MED .. STATED SHE WOULD REVIEW THE HOME MED LIST AND ORDER WHAT SHE FEELS IS APPROPRIATE
--- NOTE | 2021-03-16 18:34 | NUR ---
181 ASSISTED OOB TO BSC.. BIANKAYTLY BOWEL PREP IN PROGRESS.. PT DRINKING PREP INSTRUCTED...
--- NOTE | 2021-03-16 19:31 | NUR ---
REC'D REPORT CARE CONT. PT RESTING. OPENS EYES QUICKLY. ALERT AND ORIENTED. PT JUST BACK TO BED FROM COMMODE ON MY INITIAL ARRIVAL. PT REMEMBERS ME FROM ASSISTING WITH HER CARE LAST NIGHT. WE DISCUSSED POC FOR THE NIGHT. NEED TO DRINK MUCH OF COLON PREP FOR PROCEDURE. CONSENT ON CHART. PT SAID SHE JUST DRANK SOME AND NEEDED TO REST BEFORE DRINKING MORE BECAUSE SHE IS EXHAUSTED. PT IS AWARE OF REASON SCOPE IS NEEDED AND REASON PREP IS NEEDED. INFORMED WOULD BE BACK AND WOULD ENCOURAGE HER THROUGHOUT THE NIGHT TO DRINK MUCH CAN TO BE CLEAR FOR THE PROCEDURE. VERBALIZED UNDERSTANDING. WILL CONT TO MONITOR.
[2021-03-16 20:09] LABS: HEMATOCRIT 31.9 % (36.0-48.0); HEMOGLOBIN 10.4 g/dL (12-16)
--- NOTE | 2021-03-16 21:17 | NUR ---
ENCOURAGING PT TO DRINK PREP. POURED ON FRESH ICE. WILL CONT TO MONITOR PROGRESS.
[2021-03-16 21:32] LABS: ANION GAP 13.4 mmol/L (8-16); CALCIUM 7.1 mg/dL (8.5-10.1); CARBON DIOXIDE 20.6 mmol/L (21.0-32.0); CREATININE - SERUM 1.2 mg/dL (0.6-1.3)
--- NOTE | 2021-03-16 23:34 | NUR ---
ATTEMPT TO ENCOURAGE PT TO DRINK PREP. STATES SHE CAN NOT DRINK ANY MORE. REFUSES AT THIS TIME TO ATTEMPT. WILL CONT TO MONITOR.
[2021-03-17] VITALS (27 sets, daily range): BP systolic 99–152; BP diastolic 62–90; Ht 162.6 cm; Wt 74.4 kg
[2021-03-17 05:19] LABS: BASOPHILS 0.2 % (0-2); EOSINOPHILS 0.4 % (0-7); HEMATOCRIT 30.7 % (36.0-48.0); HEMOGLOBIN 10.1 g/dL (12-16); LYMPHOCYTES 4.8 % (15-50); MCH 28.5 pg (26.0-34.0); MCHC 32.9 g/dL (31.0-37.0); MEAN PLATELET VOLUME 9.7 fL (7.4-10.4); MONOCYTES 7.1 % (2-11); NEUTROPHILS 87.5 % (40-80); RBC 3.54 10x6/uL (4.00-5.40)
[2021-03-17 05:35] LABS: MCV 86.6 fL (80.0-100.0); PLATELET COUNT 160 10x3/uL (130-400); WBC 17.1 10x3/uL (4.8-10.8)
[2021-03-17 05:46] LABS: ANION GAP 13.3 mmol/L (8-16); BILIRUBIN - TOTAL 0.64 mg/dL (0.2-1.3); CALCIUM 7.1 mg/dL (8.5-10.1); CARBON DIOXIDE 21.5 mmol/L (21.0-32.0); CREATININE - SERUM 1.1 mg/dL (0.6-1.3); MAGNESIUM - SERUM 1.6 mg/dL (1.8-2.4); POTASSIUM - SERUM 3.8 mmol/L (3.5-5.1); VANCOMYCIN - RANDOM 13.3 ug/mL (10.0-20.0)
[2021-03-17 05:47] LABS: ALBUMIN 1.4 g/dL (3.4-5.0); PROTEIN - SERUM 5.7 g/dL (6.4-8.2)
--- NOTE | 2021-03-17 07:30 | NUR ---
PT LAYING SUPINE, RR EVEN AND UNLABORED. DENIES NEEDS OR PAIN AT THIS TIME. CHECKED FOR INCONTINENT EPISODE, NO BMS NOTED. CALL LIGHT WITHIN REACH. BED IN LOWEST POSITION.
[2021-03-17 07:48] LABS: HEMATOCRIT 30.4 % (36.0-48.0); HEMOGLOBIN 9.9 g/dL (12-16)
[2021-03-17 07:57] LABS: ANION GAP 14.1 mmol/L (8-16); CARBON DIOXIDE 20.4 mmol/L (21.0-32.0); CREATININE - SERUM 1.1 mg/dL (0.6-1.3); POTASSIUM - SERUM 3.5 mmol/L (3.5-5.1)
[2021-03-17 08:07] LABS: CALCIUM 6.9 mg/dL (8.5-10.1)
[2021-03-17 12:23] LABS: HEMOGLOBIN 10.1 g/dL (12-16)
[2021-03-17 12:39] LABS: CALCIUM 6.8 mg/dL (8.5-10.1); CARBON DIOXIDE 22.7 mmol/L (21.0-32.0); CREATININE - SERUM 0.9 mg/dL (0.6-1.3); POTASSIUM - SERUM 3.7 mmol/L (3.5-5.1)
[2021-03-17 14:11] LABS: SPE - A/G RATIO 0.6 (0.7-1.7); SPE - ALBUMIN 1.2 g/dL (2.9-4.4); SPE - ALPHA-1 GLOBULIN 0.2 g/dL (0.0-0.4); SPE - ALPHA-2 GLOBULIN 0.5 g/dL (0.4-1.0); SPE - BETA GLOBULIN 0.7 g/dL (0.7-1.3); SPE - GAMMA GLOBULIN 0.7 g/dL (0.4-1.8); SPE - M-SPIKE Not Observed g/dL (Not Observed); SPE - TOTAL PROTEIN 3.2 g/dL (6.0-8.5)
[2021-03-17 15:48] LABS: HEMATOCRIT 30.8 % (36.0-48.0); HEMOGLOBIN 10.1 g/dL (12-16)
--- NOTE | 2021-03-17 16:00 | NUR ---
DR. SANTOS AT BEDSIDE WITH ANESTHESIA FOR COLONOSCOPY
[2021-03-17 16:24] LABS: ANION GAP 12.1 mmol/L (8-16); CARBON DIOXIDE 22.5 mmol/L (21.0-32.0); CREATININE - SERUM 0.9 mg/dL (0.6-1.3); POTASSIUM - SERUM 3.6 mmol/L (3.5-5.1)
[2021-03-17 16:28] LABS: CALCIUM 6.7 mg/dL (8.5-10.1)
--- NOTE | 2021-03-17 16:35 | NUR ---
DR. SANTOS FINISHED WITH PROCEDURE. MADE AWARE OF CRITICAL CALCIUM. NO FURTHER ORDERS AT THIS TIME. PT GROGGY, BUT WILL AROUSE TO PHYSICAL STIMULI. BP 90/56. RR EVEN AND UNLABORED 13/MIN. DENIES NEEDS OR PAIN AT THIS TIME. CALL LIGHT WITHIN REACH. BED IN LOWEST POSITION. BED RAILS UP X 2
--- NOTE | 2021-03-17 19:00 | NUR ---
RECEIVED BEDSIDE REPORT. ROUNDING COMPLETE. PATIENT IS ALERT AND ORIENTED, RESTING COMFORTABLY. RESPIRATIONS ARE EVEN AND UNLABORED. NO S/S OF DISTRESS. NO C/O PAIN. NEEDS MET. CALL LIGHT WITHIN REACH. WILL CPOC
[2021-03-17 20:00] LABS: HEMATOCRIT 31.7 % (36.0-48.0); HEMOGLOBIN 10.2 g/dL (12-16)
[2021-03-17 20:22] LABS: GLUCOSE 194 mg/dL (74-106); UREA NITROGEN 16 mg/dL (7-18)
[2021-03-17 20:37] LABS: CALC OSMOLALITY 275 mosm/kg (275-300); CHLORIDE - SERUM 104 mmol/L (98-107); POTASSIUM - SERUM 3.6 mmol/L (3.5-5.1); SODIUM 135 mmol/L (136-145)
[2021-03-17 20:38] LABS: CREATININE - SERUM 0.5 mg/dL (0.6-1.3); eGFR NON AFRICAN AMERICAN > 90 mL/min (90-120)
[2021-03-17 20:43] LABS: CALCIUM 6.4 mg/dL (8.5-10.1)
[2021-03-18] VITALS (13 sets, daily range): BP systolic 84–129; BP diastolic 58–86
[2021-03-18 01:00] LABS: HEMATOCRIT 29.3 % (36.0-48.0); HEMOGLOBIN 9.7 g/dL (12-16)
[2021-03-18 05:03] LABS: BASOPHILS 0.2 % (0-2); EOSINOPHILS 0.6 % (0-7); HEMATOCRIT 31.3 % (36.0-48.0); HEMOGLOBIN 10.1 g/dL (12-16); LYMPHOCYTES 3.8 % (15-50); MCH 27.9 pg (26.0-34.0); MCHC 32.2 g/dL (31.0-37.0); MCV 86.5 fL (80.0-100.0); MEAN PLATELET VOLUME 9.4 fL (7.4-10.4); MONOCYTES 5.8 % (2-11); NEUTROPHILS 89.6 % (40-80); PLATELET COUNT 187 10x3/uL (130-400); RBC 3.62 10x6/uL (4.00-5.40); RDW 16.1 % (11.5-14.5); WBC 17.6 10x3/uL (4.8-10.8)
[2021-03-18 05:24] LABS: ALBUMIN 1.3 g/dL (3.4-5.0); BILIRUBIN - TOTAL 0.44 mg/dL (0.2-1.3); CARBON DIOXIDE 20.5 mmol/L (21.0-32.0); MAGNESIUM - SERUM 1.5 mg/dL (1.8-2.4); PHOSPHOROUS 2.2 mg/dL (2.5-4.9); POTASSIUM - SERUM 3.5 mmol/L (3.5-5.1); PROTEIN - SERUM 5.8 g/dL (6.4-8.2); VANCOMYCIN - RANDOM 16.3 ug/mL (10.0-20.0)
[2021-03-18 05:34] LABS: CREATININE - SERUM 1.1 mg/dL (0.6-1.3)
[2021-03-18 05:35] LABS: CALCIUM 6.6 mg/dL (8.5-10.1)
[2021-03-18 07:49] LABS: HEMATOCRIT 30.9 % (36.0-48.0); HEMOGLOBIN 10.1 g/dL (12-16)
[2021-03-18 07:59] LABS: ANION GAP 15.1 mmol/L (8-16); CARBON DIOXIDE 19.5 mmol/L (21.0-32.0); CREATININE - SERUM 0.9 mg/dL (0.6-1.3); POTASSIUM - SERUM 3.6 mmol/L (3.5-5.1)
[2021-03-18 08:00] LABS: CALCIUM 6.8 mg/dL (8.5-10.1)
[2021-03-18 12:34] LABS: HEMATOCRIT 32.4 % (36.0-48.0); HEMOGLOBIN 10.3 g/dL (12-16)
[2021-03-18 12:49] LABS: ANION GAP 16.9 mmol/L (8-16); CARBON DIOXIDE 17.9 mmol/L (21.0-32.0); CREATININE - SERUM 0.9 mg/dL (0.6-1.3); POTASSIUM - SERUM 3.8 mmol/L (3.5-5.1)
[2021-03-18 12:50] LABS: CALCIUM 6.7 mg/dL (8.5-10.1)
[2021-03-18 15:54] LABS: HEMATOCRIT 30.5 % (36.0-48.0); HEMOGLOBIN 9.9 g/dL (12-16)
[2021-03-18 16:05] LABS: ANION GAP 14.2 mmol/L (8-16); CARBON DIOXIDE 19.4 mmol/L (21.0-32.0); CREATININE - SERUM 1.1 mg/dL (0.6-1.3); POTASSIUM - SERUM 3.6 mmol/L (3.5-5.1)
[2021-03-18 16:10] LABS: CALCIUM 6.5 mg/dL (8.5-10.1)
--- NOTE | 2021-03-18 18:13 | NUR ---
PT ARRIVED TO ROOM 2238 FROM ICU VIA BED. ALERT AND ORIENTED, PROTONIX DRIP AT 10ML/HR. IV INTACT TO R. FA. DRESSING TO FOOT DRY AND INTACT. NO PAIN OR NEEDS VOICED AT THIS TIME. CL WITHIN REACH, [id number].
--- NOTE | 2021-03-18 18:27 | NUR ---
TELE MONITOR PLACED.
[2021-03-18 20:06] LABS: HEMOGLOBIN 9.9 g/dL (12-16)
[2021-03-18 20:18] LABS: ANION GAP 14.9 mmol/L (8-16); CARBON DIOXIDE 18.9 mmol/L (21.0-32.0); CREATININE - SERUM 1.2 mg/dL (0.6-1.3); POTASSIUM - SERUM 3.8 mmol/L (3.5-5.1)
[2021-03-18 20:22] LABS: CALCIUM 6.7 mg/dL (8.5-10.1)
[2021-03-19] VITALS: BP 100/59
[2021-03-19 01:13] LABS: HEMATOCRIT 27.7 % (36.0-48.0); HEMOGLOBIN 9.1 g/dL (12-16)
[2021-03-19 04:00] VITALS: BP 124/67
[2021-03-19 05:57] LABS: BASOPHILS 0.8 % (0-2); EOSINOPHILS 0.3 % (0-7); HEMATOCRIT 28.6 % (36.0-48.0); HEMOGLOBIN 9.2 g/dL (12-16); LYMPHOCYTES 3.5 % (15-50); MCH 28.1 pg (26.0-34.0); MCHC 32.1 g/dL (31.0-37.0); MCV 87.5 fL (80.0-100.0); MEAN PLATELET VOLUME 9.2 fL (7.4-10.4); MONOCYTES 5.2 % (2-11); NEUTROPHILS 90.2 % (40-80); PLATELET COUNT 188 10x3/uL (130-400); RBC 3.27 10x6/uL (4.00-5.40); RDW 16.7 % (11.5-14.5); WBC 17.8 10x3/uL (4.8-10.8)
[2021-03-19 06:52] LABS: ALBUMIN 1.3 g/dL (3.4-5.0); ANION GAP 15.7 mmol/L (8-16); BILIRUBIN - TOTAL 0.38 mg/dL (0.2-1.3); CARBON DIOXIDE 16.8 mmol/L (21.0-32.0); CREATININE - SERUM 1.4 mg/dL (0.6-1.3); MAGNESIUM - SERUM 1.6 mg/dL (1.8-2.4); POTASSIUM - SERUM 3.5 mmol/L (3.5-5.1); VANCOMYCIN - RANDOM 23.1 ug/mL (10.0-20.0)
[2021-03-19 06:57] LABS: CALCIUM 6.5 mg/dL (8.5-10.1)
[2021-03-19 08:00] LABS: ANION GAP 14.7 mmol/L (8-16); CARBON DIOXIDE 18.7 mmol/L (21.0-32.0); CREATININE - SERUM 1.5 mg/dL (0.6-1.3); POTASSIUM - SERUM 3.4 mmol/L (3.5-5.1)
[2021-03-19 08:02] LABS: CALCIUM 6.4 mg/dL (8.5-10.1)
[2021-03-19 08:15] VITALS: BP 107/53
[2021-03-19 11:38] LABS: HEMATOCRIT 28.2 % (36.0-48.0); HEMOGLOBIN 9.1 g/dL (12-16)
[2021-03-19 11:43] VITALS: BP 132/73
[2021-03-19 12:06] LABS: ANION GAP 13.9 mmol/L (8-16); CARBON DIOXIDE 18.8 mmol/L (21.0-32.0); CREATININE - SERUM 1.4 mg/dL (0.6-1.3); POTASSIUM - SERUM 3.7 mmol/L (3.5-5.1)
[2021-03-19 12:10] LABS: CALCIUM 6.3 mg/dL (8.5-10.1)
--- NOTE | 2021-03-19 13:18 | NUR ---
0700 BEDSIDE REPORT RECEIVED AWAKE ALERT IN BED LAURA WRAP TO LEFT FOOT DRY, INTACT ASSESSMENT COMPLETE STATED FRACTURE OF LEFT RIBS FROM FALL AT HOME TENDER TO TOUCH EDUCATED PT ON INCENTIVE SPIROMETR PURPOSE AND USE PULLING 1250ML
--- NOTE | 2021-03-19 13:23 | NUR ---
[address] ANGELES RE CONSENT ORDERS AND NPO STATUS THESE ORDERS D/C NOTIFIED JUAN DIEGO FOR DIABETIC DIET ORDER WRITTEN
--- NOTE | 2021-03-19 14:39 | NUR ---
Nutrition follow-up: Pts diet just advanced to consistent CHO today after procedure PO intake unknown at this time Labs reviewed Wt: 163# Will provide food choices with selective menus and honor food preferences within diet restricitons. Will offer nutritional supplements. RDN will follow-up: 03/22/21
[2021-03-19 15:52] LABS: HEMATOCRIT 28.1 % (36.0-48.0); HEMOGLOBIN 9.1 g/dL (12-16)
[2021-03-19 16:10] LABS: ANION GAP 12.6 mmol/L (8-16); CREATININE - SERUM 1.4 mg/dL (0.6-1.3); POTASSIUM - SERUM 3.6 mmol/L (3.5-5.1)
[2021-03-19 16:13] VITALS: BP 108/64
[2021-03-19 16:14] LABS: CALCIUM 6.4 mg/dL (8.5-10.1)
--- NOTE | 2021-03-19 17:27 | NUR ---
1702 DR HAMILTON AT BEDSIDE PERFORMING DRESSING CHANGE TO LEFT FOOT
[2021-03-19 20:20] LABS: HEMATOCRIT 29.1 % (36.0-48.0); HEMOGLOBIN 9.3 g/dL (12-16)
[2021-03-19 22:09] VITALS: BP 88/46
[2021-03-20 00:39] LABS: HEMATOCRIT 26.9 % (36.0-48.0); HEMOGLOBIN 8.8 g/dL (12-16)
[2021-03-20 01:35] VITALS: BP 104/55
--- NOTE | 2021-03-20 03:04 | NUR ---
I have reviewed this patient and I concur with the Shift Assessment completed by the Licensed Practical Nurse today this shift.
[2021-03-20 04:58] VITALS: BP 92/54
[2021-03-20 06:03] LABS: BASOPHILS 0.4 % (0-2); EOSINOPHILS 0.6 % (0-7); HEMATOCRIT 27.6 % (36.0-48.0); HEMOGLOBIN 8.8 g/dL (12-16); LYMPHOCYTES 7.8 % (15-50); MCH 28.1 pg (26.0-34.0); MCV 87.9 fL (80.0-100.0); MONOCYTES 6.8 % (2-11); NEUTROPHILS 84.4 % (40-80); PLATELET COUNT 211 10x3/uL (130-400); RBC 3.15 10x6/uL (4.00-5.40); RDW 16.7 % (11.5-14.5); WBC 14.4 10x3/uL (4.8-10.8)
[2021-03-20 06:36] LABS: ALBUMIN 1.2 g/dL (3.4-5.0); ANION GAP 12.6 mmol/L (8-16); BILIRUBIN - TOTAL 0.27 mg/dL (0.2-1.3); CARBON DIOXIDE 18.9 mmol/L (21.0-32.0); CREATININE - SERUM 1.3 mg/dL (0.6-1.3); MAGNESIUM - SERUM 1.6 mg/dL (1.8-2.4); POTASSIUM - SERUM 3.5 mmol/L (3.5-5.1); PROTEIN - SERUM 5.7 g/dL (6.4-8.2); VANCOMYCIN - RANDOM 15.1 ug/mL (10.0-20.0)
[2021-03-20 07:22] LABS: CALCIUM 6.5 mg/dL (8.5-10.1); PHOSPHOROUS 2.2 mg/dL (2.5-4.9)
[2021-03-20 08:20] LABS: HEMATOCRIT 26.5 % (36.0-48.0); HEMOGLOBIN 8.7 g/dL (12-16)
[2021-03-20 08:24] VITALS: BP 107/59
[2021-03-20 12:02] LABS: HEMATOCRIT 27.5 % (36.0-48.0); HEMOGLOBIN 8.9 g/dL (12-16)
[2021-03-20 12:24] LABS: CREATININE - SERUM 1.2 mg/dL (0.6-1.3)
[2021-03-20 12:34] LABS: ANION GAP 14.4 mmol/L (8-16); POTASSIUM - SERUM 4.4 mmol/L (3.5-5.1)
[2021-03-20 12:35] LABS: CALCIUM 6.1 mg/dL (8.5-10.1)
[2021-03-20 13:02] VITALS: BP 153/83
--- NOTE | 2021-03-20 13:33 | NUR ---
0700 BEDSIDE REPORT RECEIVED AWAKE ALERT ORIENTED VOICES NO COMPLAINTS AT THIS TIME ASSESSMENT COMPLETE WEARING SCD IN BED LEFT SURGICAL FOOT WITH LAURA WRAP CDI
--- NOTE | 2021-03-20 13:34 | NUR ---
1000 PULLED UP IN BED WITH ASSIST X 2 INCONTINENT STOOL/VOID NOTED BATH DONE COMPLETE LINEN CHANGE PERFORMED
--- NOTE | 2021-03-20 13:36 | NUR ---
1200 CBS 222 4 UNITS HUMALOG GIVEN TO RIGHT ARM SQ
[2021-03-20 17:44] VITALS: BP 137/76
[2021-03-20 17:50] LABS: HEMATOCRIT 27.9 % (36.0-48.0); HEMOGLOBIN 9.1 g/dL (12-16)
--- NOTE | 2021-03-20 18:23 | NUR ---
0800 NOTIFIED JUAN DIEGO OF CRITICAL CALCIUM 6.5 SAME YESTERDAY AM NO NEW ORDERS NOTED
--- NOTE | 2021-03-20 18:25 | NUR ---
1205 NOTIFIED [facility] OF CRITICAL CALCIUM 6.1 CHIEF RADIATION THERAPIST ACKNOWLEDGED AND NO NEW ORDERS NOTED
--- NOTE | 2021-03-20 18:40 | NUR ---
1800 DR SANTIAGO AT BEDSIDE CHANGING LEFT DRESSING CONSULTED DR PATEL FOR POSSIBLE LBKA
[2021-03-20 20:00] VITALS: BP 124/67
[2021-03-20 20:07] LABS: HEMATOCRIT 26.6 % (36.0-48.0); HEMOGLOBIN 8.7 g/dL (12-16)
[2021-03-21] VITALS (14 sets, daily range): BP systolic 116–161; BP diastolic 60–83
[2021-03-21 02:08] LABS: HEMOGLOBIN 9.2 g/dL (12-16)
--- NOTE | 2021-03-21 02:29 | NUR ---
I have reviewed this patient and I concur with the Shift Assessment completed by the Licensed Practical Nurse today this shift.
[2021-03-21 06:28] LABS: BASOPHILS 0.3 % (0-2); EOSINOPHILS 0.9 % (0-7); HEMATOCRIT 26.2 % (36.0-48.0); HEMOGLOBIN 8.7 g/dL (12-16); LYMPHOCYTES 10.5 % (15-50); MCH 28.6 pg (26.0-34.0); MCHC 33.1 g/dL (31.0-37.0); MCV 86.6 fL (80.0-100.0); MEAN PLATELET VOLUME 8.5 fL (7.4-10.4); MONOCYTES 5.5 % (2-11); NEUTROPHILS 82.8 % (40-80); PLATELET COUNT 206 10x3/uL (130-400); RBC 3.03 10x6/uL (4.00-5.40); RDW 16.6 % (11.5-14.5); WBC 12.2 10x3/uL (4.8-10.8)
[2021-03-21 07:57] LABS: ALBUMIN 1.2 g/dL (3.4-5.0); BILIRUBIN - TOTAL 0.36 mg/dL (0.2-1.3); CARBON DIOXIDE 20.8 mmol/L (21.0-32.0); MAGNESIUM - SERUM 1.5 mg/dL (1.8-2.4); PHOSPHOROUS 2.5 mg/dL (2.5-4.9); PROTEIN - SERUM 5.3 g/dL (6.4-8.2); VANCOMYCIN - RANDOM 17.8 ug/mL (10.0-20.0)
[2021-03-21 08:01] LABS: ANION GAP 11.8 mmol/L (8-16); POTASSIUM - SERUM 3.6 mmol/L (3.5-5.1)
[2021-03-21 08:07] LABS: CALCIUM 6.4 mg/dL (8.5-10.1)
[2021-03-21 08:09] LABS: HEMOGLOBIN 9.1 g/dL (12-16)
[2021-03-21 12:30] LABS: HEMATOCRIT 27.5 % (36.0-48.0); HEMOGLOBIN 9.1 g/dL (12-16)
--- NOTE | 2021-03-21 13:50 | NUR ---
0700 BEDSIDE REPORT RECEIVED ASSESSMENT COMPLETE DR PATEL AT BEDSIDE REQUESTING CONSENTS SIGNED TODAY FOR SURGERY MEALS HELD, PO MEDS HELD INSTRUCTED PT OF NPO STATUS
--- NOTE | 2021-03-21 13:56 | NUR ---
1241 PREOP CALLED MEDS GIVEN IV TO LEFT FOREARM INFUSING SITE SATISFACTORY
--- NOTE | 2021-03-21 13:59 | NUR ---
1325 INCONTINENT OF STOOL AND URINE IN BED COMPLETE LINEN CHANGE DONE
--- NOTE | 2021-03-21 14:00 | NUR ---
1332 TRANSPORTED TO OR PER SURGERY STAFF
--- NOTE | 2021-03-21 16:12 | NUR ---
1600 ARRIVED FROM PACU PER BED TRANSFER O2 SAT 91-90% ON ROOM AIR PLACED ON 2L/NC SLEEPY BUT ORIENTED LEFT LEG BKA WITH DRESSING INTACT WITH LAURA WRAP NOTED INITIATED FREQUOENT VITAL SIGNS
[2021-03-21 16:43] LABS: HEMATOCRIT 27.6 % (36.0-48.0); HEMOGLOBIN 8.9 g/dL (12-16)
--- NOTE | 2021-03-21 19:00 | NUR ---
BEDSIDE REPORT RECEIVED AND CARE OF PT ASSUMED. PT LYING IN LOW NAVA'S POSITION WITH EYES CLOSED. VITALS STABLE AND PT READING 93% O2 ON 2L. IV TO RIGHT AC PATENT WITH NS INFUSING AT 100 ML/HR. WOUND VAC ON LEFT BKA STUMP WELL COMPRESSED WITH NO LEAKAGE ALARMS. WILL MONITOR FOR NEEDS.
--- NOTE | 2021-03-21 20:45 | NUR ---
CHANGED ALL LINENS AND GOWN DUE TO INCONTINENCE OF URINE. POSITIONED FOR COMFORT.
--- NOTE | 2021-03-21 21:00 | NUR ---
HS MEDICATIONS GIVEN TO INCLUDE NORCO PO PER REQUEST FOR ACHING INCISIONAL PAIN TO LEFT STUMP AT LEVEL 6/10. WILL MONITOR FOR EFFECTIVENESS.
--- NOTE | 2021-03-21 21:30 | NUR ---
RE-ENFORCED WOUND VAC DRESSING WITH CLEAR DRESSING, DUE TO LEAKAGE ALARMS.
[2021-03-22] VITALS: BP 121/63
[2021-03-22 00:29] LABS: HEMATOCRIT 25.3 % (36.0-48.0); HEMOGLOBIN 8.4 g/dL (12-16)
[2021-03-22 04:00] VITALS: BP 146/76
--- NOTE | 2021-03-22 05:01 | NUR ---
CHANGED ALL LINENS DUE TO INCONTINENCE OF URINE. POSITIONED FOR COMFORT WITH LEFT STUMP ELEVATED ON A PILLOW.
[2021-03-22 06:35] LABS: BASOPHILS 0.3 % (0-2); EOSINOPHILS 0.9 % (0-7); HEMATOCRIT 25.3 % (36.0-48.0); HEMOGLOBIN 8.6 g/dL (12-16); LYMPHOCYTES 10.6 % (15-50); MCH 29.4 pg (26.0-34.0); MCV 86.6 fL (80.0-100.0); MEAN PLATELET VOLUME 8.3 fL (7.4-10.4); MONOCYTES 6.3 % (2-11); NEUTROPHILS 81.9 % (40-80); PLATELET COUNT 236 10x3/uL (130-400); RBC 2.93 10x6/uL (4.00-5.40); RDW 16.4 % (11.5-14.5); WBC 10.3 10x3/uL (4.8-10.8)
[2021-03-22 06:37] LABS: ALBUMIN 1.1 g/dL (3.4-5.0); ANION GAP 9.4 mmol/L (8-16); BILIRUBIN - TOTAL 0.33 mg/dL (0.2-1.3); CARBON DIOXIDE 22.9 mmol/L (21.0-32.0); CREATININE - SERUM 0.9 mg/dL (0.6-1.3); MAGNESIUM - SERUM 1.4 mg/dL (1.8-2.4); PHOSPHOROUS 2.6 mg/dL (2.5-4.9); POTASSIUM - SERUM 3.3 mmol/L (3.5-5.1); PROTEIN - SERUM 5.8 g/dL (6.4-8.2); VANCOMYCIN - RANDOM 13.1 ug/mL (10.0-20.0)
[2021-03-22 06:39] LABS: CALCIUM 6.5 mg/dL (8.5-10.1)
[2021-03-22] MEDS ORDERED: HYDROCODON-ACE1 EA10 PO (07:15)
[2021-03-22 08:28] LABS: HEMATOCRIT 24.8 % (36.0-48.0); HEMOGLOBIN 8.4 g/dL (12-16)
--- NOTE | 2021-03-22 08:50 | NUR ---
PATIENT IN BED WITH IV INTACT. NO COMPLAINTS OR SIGNS OF DISTRESS. WOUND VAC INTACT. CALL LIGHT WITHIN REACH.
[2021-03-22 10:49] VITALS: BP 105/62
[2021-03-22 12:28] VITALS: BP 109/43
[2021-03-22 13:39] LABS: HEMATOCRIT 25.6 % (36.0-48.0); HEMOGLOBIN 8.3 g/dL (12-16)
--- NOTE | 2021-03-22 15:13 | NUR ---
Nutrition folllow-up: Pt reports poor appetite following surgery (BKA) Diet order: consistent CHO PO intake ~20% of some meals Labs reviewed; A1c: 12.7% Wt: 163# Pt is not meeting estimated nutritional needs at this time due to poor po intake Pt may benefit from an appetite stimulant May also need to consider nutrition support. RDN will follow-up: 03/26/21
[2021-03-22 16:29] LABS: HEMATOCRIT 26.2 % (36.0-48.0); HEMOGLOBIN 8.6 g/dL (12-16)
[2021-03-22 18:08] LABS: OVA + PARASITE EXAM Final report (())
[2021-03-22 18:16] VITALS: BP 104/60
--- NOTE | 2021-03-22 18:43 | NUR ---
PATIENT IN BED WITH IV INTACT. NO COMPLAINTS OR SIGNS OF DISTRESS. EYES CLOSED RESTING QUIETLY.
--- NOTE | 2021-03-22 19:00 | NUR ---
BEDSIDE REPORT RECEIVED AND CARE OF PT ASSUMED. PT LYING IN LOW NAVA'S POSITION WATCHING TV. IV TO RIGHT AC PATENT WITH NS INFUSING AT 100 ML/HR. WOUND VAC ON LEFT INCISION / BKA WELL COMPRESSED WITH NO LEAKAGE ALARMS. WILL MONITOR FOR NEEDS.
--- NOTE | 2021-03-22 19:20 | NUR ---
ALL LINENS AND GOWN CHANGED DUE TO INCONTINENCE OF URINE. POSITIONED FOR COMFORT.
[2021-03-22 20:00] VITALS: BP 128/67
--- NOTE | 2021-03-22 20:53 | NUR ---
HS MEDICATIONS GIVEN. FSBS 194 THIS CHECK REQUIRING COVERAGE WITH 2 UNITS OF INSULIN PER SLIDING SCALE.
[2021-03-22 22:04] LABS: HEMATOCRIT 25.5 % (36.0-48.0); HEMOGLOBIN 8.3 g/dL (12-16)
[2021-03-23] VITALS: BP 115/60
[2021-03-23 04:00] VITALS: BP 124/66
[2021-03-23 06:04] LABS: BASOPHILS 0.7 % (0-2); HEMATOCRIT 24.1 % (36.0-48.0); HEMOGLOBIN 8.2 g/dL (12-16); LYMPHOCYTES 12.1 % (15-50); MCH 29.3 pg (26.0-34.0); MCHC 33.9 g/dL (31.0-37.0); MCV 86.3 fL (80.0-100.0); MEAN PLATELET VOLUME 7.9 fL (7.4-10.4); MONOCYTES 7.2 % (2-11); PLATELET COUNT 206 10x3/uL (130-400); RBC 2.79 10x6/uL (4.00-5.40); RDW 16.3 % (11.5-14.5); WBC 9.9 10x3/uL (4.8-10.8)
[2021-03-23 06:58] LABS: ALBUMIN 1.1 g/dL (3.4-5.0); ALKALINE PHOSPHATASE 60 U/L (30-120); BILIRUBIN - TOTAL 0.32 mg/dL (0.2-1.3); CALC OSMOLALITY 271 mosm/kg (275-300); CARBON DIOXIDE 22.4 mmol/L (21.0-32.0); CHLORIDE - SERUM 107 mmol/L (98-107); CREATININE - SERUM 0.8 mg/dL (0.6-1.3); GLUCOSE 153 mg/dL (74-106); MAGNESIUM - SERUM 1.4 mg/dL (1.8-2.4); POTASSIUM - SERUM 3.3 mmol/L (3.5-5.1); PROTEIN - SERUM 5.7 g/dL (6.4-8.2); SODIUM 135 mmol/L (136-145); UREA NITROGEN 9 mg/dL (7-18); eGFR NON AFRICAN AMERICAN 76 mL/min (90-120)
[2021-03-23 07:03] LABS: ALT (SGPT) 16 U/L (10-68); CALCIUM 6.4 mg/dL (8.5-10.1)
--- NOTE | 2021-03-23 07:14 | NUR ---
pT. RECEIVED RESTING IN BED, NO DISTRESS. ALERT AND ORIENTED. IV INFUSING TO L. AC, NS AT 100CC/HR. WOUND VAC INTACT TO LLE. NO NEEDS VOICED. CL WITHIN REACH, SR UPX2.
[2021-03-23 08:38] LABS: HEMOGLOBIN 8.3 g/dL (12-16)
[2021-03-23 08:40] LABS: HEMATOCRIT 24.8 % (36.0-48.0)
[2021-03-23 09:12] VITALS: BP 136/58
[2021-03-23 11:52] VITALS: BP 140/70
[2021-03-23 12:48] LABS: HEMATOCRIT 24.7 % (36.0-48.0); HEMOGLOBIN 8.1 g/dL (12-16)
--- NOTE | 2021-03-23 14:13 | NUR ---
IMMOBOLIZER PLACED ON LLE.
--- NOTE | 2021-03-23 14:42 | NUR ---
REHAB REFERRAL RECEIVED. PATIENT LOOKS LIKE A GOOD CANDIDATE FOR IMPATIENT REHAB WHEN SHE IS MEDICALLY STABLE. I WILL START PREPARING THE INFORMATION TO SEND FOR AUTHORIZATION SO IT IS READY TO SEND WHEN APPROPRIATE. I HAVE SPOKEN WITH [facility] [employer] [facility] IN REGARDS TO THIS. THANK YOU FOR THIS REFERRAL. STEVIE CEBALLOS RN CLINICAL LIAISON, INPATIENT REHAB.
[2021-03-23 16:08] LABS: HEMATOCRIT 25.8 % (36.0-48.0); HEMOGLOBIN 8.4 g/dL (12-16)
[2021-03-23 17:34] VITALS: BP 116/60
--- NOTE | 2021-03-23 17:41 | NUR ---
OT NOTE: PT REPORTING INCREASED PAIN TODAY, HOWEVER, VERY MOTIVATED TO PARTICIPATE. SIGNIFICANT OTHER AT BEDSIDE.. ANSWERED QUESTIONS REGARDING REHAB. BED MOB WITH MIN ASSIST AND EXT TIME; EOB SITTING WITH GOOD BALANCE; SIT TO STAND WITH WALKER WITH MOD ASSIST. BACK TO BED WITH MIN ASSIST AND EXT TIME. ABLE TO ROLL FROM SIDE TO SIDE WITH MIN ASSIST TODAY. SIMPLE GROOMING AND FEEDING WITH SET UP; MAX ASSIST TO MARA SOCK PARUL ANG,OTR/L 230-3
--- NOTE | 2021-03-23 19:45 | NUR ---
BEDSIDE REPORT REPORT. PT LAYING IN BED IN BED A&O X4. PIV TO LEFT AC, PATENT AND INFUSING, NO REDNESS OR SWELLING. TELEMETRY IN PLACE, 71 SR. BKA TO LLE, WOUND VAC IN PLACE AND IMMOBILIZER. EDUCATED PT ON CL AND NEEDS, VERBALIZED UNDERSTANDING. BED LOW, CL IN REACH.
[2021-03-23 19:48] LABS: HEMOGLOBIN 8.1 g/dL (12-16)
[2021-03-23 20:00] VITALS: BP 120/63
[2021-03-24] VITALS: BP 125/64
[2021-03-24 01:01] LABS: HEMATOCRIT 24.1 % (36.0-48.0)
[2021-03-24 04:00] VITALS: BP 137/70
--- NOTE | 2021-03-24 07:40 | NUR ---
PT RECEIVED RESTING IN BED, ALERT AND ORIENTED. NO NEEDS VOICED, NO DISTRESS. IV INFUSING TO LEFT AC. NS AT 100CC/HR. WOUND VAC TO LLE INTACT. LLE AMPUTATION. CALL LIGHT WITHIN REACH, SR UPX2.
[2021-03-24 07:54] LABS: BASOPHILS 0.5 % (0-2); EOSINOPHILS 0.9 % (0-7); HEMATOCRIT 25.2 % (36.0-48.0); HEMOGLOBIN 8.4 g/dL (12-16); LYMPHOCYTES 10.7 % (15-50); MCH 28.8 pg (26.0-34.0); MCHC 33.4 g/dL (31.0-37.0); MCV 86.4 fL (80.0-100.0); MEAN PLATELET VOLUME 7.9 fL (7.4-10.4); MONOCYTES 5.8 % (2-11); NEUTROPHILS 82.1 % (40-80); PLATELET COUNT 217 10x3/uL (130-400); RBC 2.91 10x6/uL (4.00-5.40); RDW 16.2 % (11.5-14.5); WBC 9.2 10x3/uL (4.8-10.8)
[2021-03-24 08:03] LABS: ALBUMIN 1.1 g/dL (3.4-5.0); ALKALINE PHOSPHATASE 56 U/L (30-120); ALT (SGPT) 18 U/L (10-68); BILIRUBIN - TOTAL 0.31 mg/dL (0.2-1.3); CALC OSMOLALITY 276 mosm/kg (275-300); CARBON DIOXIDE 24.4 mmol/L (21.0-32.0); CHLORIDE - SERUM 107 mmol/L (98-107); CREATININE - SERUM 0.8 mg/dL (0.6-1.3); GLUCOSE 147 mg/dL (74-106); MAGNESIUM - SERUM 1.5 mg/dL (1.8-2.4); PROTEIN - SERUM 5.9 g/dL (6.4-8.2); SODIUM 138 mmol/L (136-145); UREA NITROGEN 8 mg/dL (7-18); eGFR NON AFRICAN AMERICAN 76 mL/min (90-120)
[2021-03-24 08:22] LABS: HEMATOCRIT 24.7 % (36.0-48.0); HEMOGLOBIN 8.3 g/dL (12-16)
[2021-03-24 08:28] LABS: CALCIUM 6.7 mg/dL (8.5-10.1)
[2021-03-24 09:26] VITALS: BP 135/71
[2021-03-24 12:25] LABS: HEMOGLOBIN 8.2 g/dL (12-16)
[2021-03-24 14:41] VITALS: BP 140/67
[2021-03-24 15:45] LABS: HEMATOCRIT 25.3 % (36.0-48.0); HEMOGLOBIN 8.3 g/dL (12-16)
[2021-03-24 17:41] VITALS: BP 110/60
--- NOTE | 2021-03-24 19:45 | NUR ---
RECEIVED BEDSIDE REPORT. PT LAYING IN BED A&O X4. PIV TO LEFT AC, PATENT AND INFUSING, NO REDNESS OR INFUSING. INCISION TO LLE, BKA, WOUND VAC IN PLACE. TELEMETRY IN PLACE 70 SR. BEDFAST. EDUCATED PT ON CL AND NEEDS, VERBALIZED UNDERSTANDING. BED LOW, CL IN REACH.
[2021-03-24 20:00] VITALS: BP 171/69
[2021-03-24 20:22] LABS: HEMATOCRIT 24.4 % (36.0-48.0); HEMOGLOBIN 8.1 g/dL (12-16)
--- NOTE | 2021-03-24 22:05 | NUR ---
OT NOTE: PT COMPLETED BED MOB WITH MIN A. PT COMPLETED SUPINE TO SIT WITH MIN A. PT REQUIRED MIN A-CGA FOR SIT TO STAND USING WALKER. PT COMPLETED UE AROM WITH FUNCTIONAL TASKS FOR BED MOBILITY...SIT TO STAND..WALKER MANAGEMENT. PT DID VERY WELL. [id number] HANSEL KRISHNAMURTHY COTA
[2021-03-25] VITALS: BP 137/68
[2021-03-25 00:52] LABS: HEMATOCRIT 24.6 % (36.0-48.0)
[2021-03-25 04:00] VITALS: BP 152/70
[2021-03-25 06:03] LABS: BASOPHILS 0.3 % (0-2); EOSINOPHILS 0.9 % (0-7); HEMATOCRIT 24.8 % (36.0-48.0); HEMOGLOBIN 8.1 g/dL (12-16); LYMPHOCYTES 12.7 % (15-50); MCH 28.3 pg (26.0-34.0); MCHC 32.8 g/dL (31.0-37.0); MCV 86.2 fL (80.0-100.0); MONOCYTES 4.7 % (2-11); NEUTROPHILS 81.4 % (40-80); PLATELET COUNT 224 10x3/uL (130-400); RBC 2.88 10x6/uL (4.00-5.40); RDW 16.5 % (11.5-14.5); WBC 8.8 10x3/uL (4.8-10.8)
[2021-03-25 06:33] LABS: ALBUMIN 1.1 g/dL (3.4-5.0); ALKALINE PHOSPHATASE 58 U/L (30-120); BILIRUBIN - TOTAL 0.25 mg/dL (0.2-1.3); CALC OSMOLALITY 278 mosm/kg (275-300); CARBON DIOXIDE 24.3 mmol/L (21.0-32.0); CHLORIDE - SERUM 107 mmol/L (98-107); CREATININE - SERUM 0.7 mg/dL (0.6-1.3); GLUCOSE 154 mg/dL (74-106); MAGNESIUM - SERUM 1.6 mg/dL (1.8-2.4); PROTEIN - SERUM 5.9 g/dL (6.4-8.2); SODIUM 139 mmol/L (136-145); UREA NITROGEN 8 mg/dL (7-18); eGFR NON AFRICAN AMERICAN 89 mL/min (90-120)
[2021-03-25 06:37] LABS: ALT (SGPT) 12 U/L (10-68)
[2021-03-25 06:38] LABS: CALCIUM 6.7 mg/dL (8.5-10.1)
--- NOTE | 2021-03-25 07:26 | NUR ---
RECIEVED BEDSIDE REPORT. PATIENT IN BED SLEEPING, AROUSES TO VOICE. DENIES NEEDS AT THIS TIME. BED LOW POSITION, CALL LIGHT IN REACH. FREE FROM SIGNS OF DISTRESS. WILL CONTINUE TO MONITOR.
[2021-03-25 07:50] VITALS: BP 137/78
[2021-03-25 08:02] LABS: HEMATOCRIT 24.1 % (36.0-48.0); HEMOGLOBIN 8.1 g/dL (12-16)
--- NOTE | 2021-03-25 09:49 | NUR ---
I WILL BE SENDING INFORMATION FOR AUTH TO [facility] TODAY WITH REQUEST FOR ADMITTING TO REHAB LATER TODAY OR TOMORROW IF APPROVED AND MD FEELS SHE IS STABLE. IF WE GET AUTH, IT WILL BE GOOD FOR 72 HOURS. STEVIE CEBALLOS RN CLINICAL LIAISON, INPATIENT REHAB.
[2021-03-25 11:41] LABS: HEMATOCRIT 25.3 % (36.0-48.0); HEMOGLOBIN 8.3 g/dL (12-16)
[2021-03-25 12:17] VITALS: BP 127/61
--- NOTE | 2021-03-25 15:43 | NUR ---
OT NOTE: PT DOING BETTER TODAY; BED MOB INCLUDING ROLLING FROM SIDE TO SIDE WITH MIN ASSIST; SUPINE TO SIT WITH MIN ASSIST; MOD ASSIST TO GET TO EOB. SIMPLE GROOMING TASKS WITH SET UP; SIT TO STAND WITH WALKER AND MOD ASSIST; PERFORMED APPROX 4 SIT TO STAND EXS TO IMPROVE UE STRENGTH. ABLE TO PERFORM UE AROM EXS WHILE ON EOB. AT END OF SESSION, PHYS THERAPY CAME IN AND PT WAS ABLE TO TRANSFER FROM BED TO CHAIR WITH WALKER, MOD ASSIST, AND MOD ASSIST FOR WALKER MGMT.. PT PERFORMED WELL WITH PIVOT TRANSFER, BUT DOES NOT HAVE THE UE STRENGTH FOR "HOPPING" WITH WALKER AT THIS TIME. WILL CONT TO PROGRESS.. RECOMMEND IP REHAB TO ALLOW PT THE GREATEST CHANCE TO RETURN HOME TO INDEP LIVING. PT ALSO SEEN IN PM FOR BED MOB AND STRENGTHENING EXS. PARUL ANG, OTR/L [phone]; [phone]
[2021-03-25 16:08] LABS: HEMATOCRIT 25.3 % (36.0-48.0); HEMOGLOBIN 8.2 g/dL (12-16)
[2021-03-25 17:07] VITALS: BP 149/72
--- NOTE | 2021-03-25 19:45 | NUR ---
RECEIVED BEDSIDE REPORT. PT LAYING IN BED A&O X4. PIV TO RIGHT WRIST, PATENT AND INFUSING, NO REDNESS OR SWELLING. LLE BKA, WOUND VAC IN PLACE. TELEMETRY IN PLACE 74 SR. EXORIATION TO ANAL AREA, APPLIED CREAM. PT BEDFAST, UP WITH PHYSICAL THERAPY. EDUCATED PT ON CL AND NEEDS, VERBALIZED UNDERSTANDING. BED LOW, CL IN REACH.
[2021-03-25 20:00] VITALS: BP 119/65
[2021-03-25 20:02] LABS: HEMOGLOBIN 7.8 g/dL (12-16)
[2021-03-26] VITALS: BP 144/75
[2021-03-26 01:33] LABS: HEMATOCRIT 24.1 % (36.0-48.0)
[2021-03-26 04:00] VITALS: BP 146/74
[2021-03-26 05:47] LABS: BASOPHILS 0.5 % (0-2); EOSINOPHILS 0.7 % (0-7); HEMATOCRIT 24.2 % (36.0-48.0); LYMPHOCYTES 10.4 % (15-50); MCH 28.6 pg (26.0-34.0); MCHC 33.1 g/dL (31.0-37.0); MCV 86.2 fL (80.0-100.0); MEAN PLATELET VOLUME 7.5 fL (7.4-10.4); MONOCYTES 4.1 % (2-11); NEUTROPHILS 84.3 % (40-80); PLATELET COUNT 222 10x3/uL (130-400); RBC 2.81 10x6/uL (4.00-5.40); RDW 16.4 % (11.5-14.5)
[2021-03-26 06:25] LABS: MAGNESIUM - SERUM 1.6 mg/dL (1.8-2.4); POTASSIUM - SERUM 3.9 mmol/L (3.5-5.1)
[2021-03-26 06:26] LABS: ALBUMIN 1.1 g/dL (3.4-5.0); ANION GAP 8.2 mmol/L (8-16); BILIRUBIN - TOTAL 0.25 mg/dL (0.2-1.3); CARBON DIOXIDE 25.7 mmol/L (21.0-32.0)
[2021-03-26 06:34] LABS: CALCIUM 6.8 mg/dL (8.5-10.1)
--- NOTE | 2021-03-26 07:31 | NUR ---
RECIEVED BEDSIDE REPORT. BED LOW POSITION, CALL LIGHT IN REACH. AROUSES TO VOICE. FREE FROM SIGNS OF DISTRESS. WILL CONTINUE TO MONITOR.
[2021-03-26 08:23] VITALS: BP 152/80
[2021-03-26 08:46] LABS: HEMATOCRIT 24.9 % (36.0-48.0); HEMOGLOBIN 8.1 g/dL (12-16)
--- NOTE | 2021-03-26 12:12 | NUR ---
RECEIVED A CALL FROM LIZA ALANIZ RN WITH [facility]. SHE STATED THAT THE PATIENT WAS REVIEWED WITH THE HIDE SALTER AND THEY FEEL RIGHT NOW THAT THE PATIENT IS STILL TO ACUTE AND NOT STABLE TO COME TO INPATIENT REHAB. THEY STATED THAT WE COULD RESUBMIT WHEN STABLE. ANY QUESTIONS, SHE CAN BE REACHED ON [phone].
--- NOTE | 2021-03-26 12:16 | NUR ---
Nutrition reassesssment: Pt POD#5 of left BKA Diet order: consistent CHO PO intake ~50% of meals; pt reports poor appetite at this time. Labs reviewed +BM No new wt to assess today I/O reviewed; output not being captured. Estimated needs: 9034-3437 kcal (25-30 kcal IBW) 60-80 g protein (1.0-1.3 gm/kg IBW) 4289-7014 ml fluid Nutrition diagnosis: Inadequate oral intake R/T recent surgery AEB pt with continued poor po intake at this time. Nutrition goals: - PO intake =/> 75% of meals, snacks - Meet est fluid needs - Stable dry wt Interventions: Will continue to provide food choices with selective menus and honor food preferences. Will offer Glucerna Shake with meals Recommendations: Pt may benefit from an appetite stimulant due to poor po intake. May also consider short-term ProcalAmine PPN @ 75 ml/hr. RDN will follow-up on pts progress toward nutrition goals in 3-5 days.
[2021-03-26 12:19] VITALS: BP 149/75
[2021-03-26 12:34] LABS: HEMATOCRIT 24.7 % (36.0-48.0); HEMOGLOBIN 8.2 g/dL (12-16)
--- NOTE | 2021-03-26 13:47 | MORECARE ---
CASE MANAGEMENT DISCHARGE SUMMARY PATIENT: JERE MEDELLIN UNIT: [id number] ADM DATE: 03/16/21 AGE: 65 : 54 SEX: F ROOM/BED: [facility]8 AUTHOR: CHARODOC PHYSICIAN: REFERRING PHYSICIAN: JOJO FELIZ MD DATE OF SERVICE: 03/26/21 Case Management Discharge Planning Summary DCP REVIEW SUMMARY ANTICIPATED D/C DATE: EXPECTED LOS : CASE STATUS: DCP Initiated INITIAL REVIEW: 03/16/2021 INITIAL REVIEWER: Huyen Del Rio FINAL DISCHARGE DISPOSITION: : FINAL REVIEWER: FINAL REVIEW DATE: DCP Focus Questions & Answers DCP Screen QUESTION: ANSWER High Risk Factors: : Hosp related to CHF, COPD, DM, End Stage Ds, CVA, CA DCP Evaluation QUESTION: ANSWER Patient's ability to cope with chronic illness : d. No chronic illness Would patient like to participate in any Care Coordination programs (if applicable): : Not applicable Mental health screen: : No mental health history DCP Re-evaluation QUESTION: ANSWER Would patient like to participate in any Care Coordination programs (if applicable): : Not applicable PATIENT: JERE MEDELLIN ENCOUNTER: [id number] MEDICAL RECORD#: [id number] ADMISSION DATE: 03/16/2021 DISCHARGE DATE: ATTENDING MD: JOJO SOTO : AGE: 65 MARITAL STATUS: D DC PLAN ID: [id number] FACILITY: [facility] PRINTED ON: 03/26/21 13:47 CT All edits/amendments must be made on the electronic document DICTATION DATE: 03/26/21 134 GRAIN COMBINER: DM 03/26/21 1347 RPT#: [id number] DC DATE: STATUS: ADM IN [facility] [address] [place] [address] END OF REPORT
--- NOTE | 2021-03-26 13:59 | MORECARE ---
CASE MANAGEMENT DISCHARGE SUMMARY PATIENT: JERE MEDELLIN UNIT: [id number] ADM DATE: 03/16/21 AGE: 65 : 54 SEX: F ROOM/BED: D.2238 AUTHOR: CHARO,DOC PHYSICIAN: REFERRING PHYSICIAN: JOJO FELIZ MD DATE OF SERVICE: 03/26/21 Case Management Discharge Planning Summary COMMENTS ENTERED DATE: 03/26/21 13:49 CT COMMENT TYPE: Discharge Planning REVIEWER: Huyen Del Rio CM met with patient at bedside after obtaining verbal consent. CM discussed availability / needs of home health, REHAB and medical equipment. Patient states will need rehab when medically stable. MARIO signed for inpatient rehab NP and imm signed and placed on chart. Anticipate patient to go to inpatient rehab when medically stable. She does have a wound vac in place and would like a knee walker for home. CM to follow and assist as needed. DCP REVIEW SUMMARY ANTICIPATED D/C DATE: EXPECTED LOS : CASE STATUS: DCP Initiated INITIAL REVIEW: 03/16/2021 INITIAL REVIEWER: Huyen Del Rio FINAL DISCHARGE DISPOSITION: : FINAL REVIEWER: FINAL REVIEW DATE: DCP Focus Questions & Answers DCP Screen QUESTION: ANSWER High Risk Factors: : Hosp related to CHF, COPD, DM, End Stage Ds, CVA, CA DCP Evaluation QUESTION: ANSWER Patient's current cognitive status: : *Oriented to person, place, situation, time and present Patient's ability to cope with chronic illness : b. Minimal (2 - 3 ED visits in 6 mos., limited financial resources, occasionally misses appts.) Physical Status: : Mobility impaired Functional screen assessment: : New onset in difficulty in gait, balance, or transfer difficulties Living Arrangements: : Home with others Baseline cognitive status: : *Oriented to person, place, situation, time and present Living arrangements comments: : SISTER LIVES WITH HER BUT IS IN BAD HEALTH Pharm[facility] name(s): : [facility] Does Patient have transportation to get home and to follow-up medical appointments when discharged from the hospital? : Yes Would patient like to participate in any Care Coordination programs (if applicable): : Not applicable Does the patient have electricity at home? : Yes Does the patient have running water in their house? : Yes Other Equipment comments: : [place] Mental health screen: : No mental health history Resources / Services in place: : Home health Contact information for resources in use: : [facility] Problems identified by the patient regarding discharge: : STATES SHE MAY MOVE TO [place] TO BE CLOSER TO HER SON. STATES SHE MAY NEED A KNEE WALKER AT TIME OF DISCHARGE. DCP Re-evaluation QUESTION: ANSWER Would patient like to participate in any Care Coordination programs (if applicable): : Not applicable PATIENT: JERE MEDELLIN ENCOUNTER: [id number] MEDICAL RECORD#: [id number] ADMISSION DATE: 03/16/2021 DISCHARGE DATE: ATTENDING MD: JOJO SOTO : AGE: 65 MARITAL STATUS: D DC PLAN ID: [id number] FACILITY: [facility] PRINTED ON: 03/26/21 13:59 CT All edits/amendments must be made on the electronic document DICTATION DATE: 03/26/211358 LAUNDRY TECHNICIAN: ZEN 03/26/21 135 RPT#: [id number] DC DATE: STATUS: ADM IN [facility] [address] [place] [address] END OF REPORT
--- NOTE | 2021-03-26 16:42 | NUR ---
OT NOTE: PT COMPLETED BED MOBILITH WITH MIN A-CGA. PT REQUIRED MAX A FOR LB HYGIENE. PT COMPLETED UB HYGIENE WITH SETUP. PT COMPLETED MARA/DOFF SOCK WITH TOTAL A. CL IN REACH...BED ALARM ON. [phone] HANSEL KRISHNAMURTHY COTA
[2021-03-26 18:02] LABS: HEMATOCRIT 24.5 % (36.0-48.0); HEMOGLOBIN 7.8 g/dL (12-16)
[2021-03-26 21:43] VITALS: BP 129/63
[2021-03-26 22:55] LABS: HEMOGLOBIN 7.7 g/dL (12-16)
--- NOTE | 2021-03-27 02:00 | NUR ---
CRITICAL HGB 7.4 - REPORTED TO MARA MOLINA. ORDERED 2 UNITS PRBC'S, EACH UNIT TO BE TRANSFUSED SLOWLY OVER 3.5 - 4 HOURS. ALERTED LAB ORDER WAS PUT IN. WAITING ON LAB TO TYPE AND CROSS.
[2021-03-27 02:03] LABS: HEMATOCRIT 21.9 % (36.0-48.0)
[2021-03-27 02:08] LABS: HEMOGLOBIN 7.4 g/dL (12-16)
--- NOTE | 2021-03-27 03:40 | NUR ---
SPOKE WITH LAB CONCERNING NEEDED TYPE AND CROSS. LAB STATED THEY WOULD BE HERE AT 0400 TO DRAW AM LABS AND DO TYPE AND CROSS THEN.
--- NOTE | 2021-03-27 04:43 | NUR ---
CALLED LAB AGAIN ABOUT NEEDED TYPE AND CROSS. LAB STATES THEY WILL SEND SOMEONE.
[2021-03-27 05:38] VITALS: BP 135/69
[2021-03-27 05:40] LABS: EOSINOPHILS 1.2 % (0-7); HEMATOCRIT 22.7 % (36.0-48.0); HEMOGLOBIN 7.6 g/dL (12-16); LYMPHOCYTES 20.6 % (15-50); MCH 28.9 pg (26.0-34.0); MCHC 33.7 g/dL (31.0-37.0); MCV 85.8 fL (80.0-100.0); MEAN PLATELET VOLUME 7.4 fL (7.4-10.4); MONOCYTES 5.3 % (2-11); NEUTROPHILS 71.9 % (40-80); PLATELET COUNT 224 10x3/uL (130-400); RBC 2.64 10x6/uL (4.00-5.40); RDW 16.6 % (11.5-14.5); WBC 7.8 10x3/uL (4.8-10.8)
[2021-03-27 06:10] LABS: ALBUMIN 1.2 g/dL (3.4-5.0); PROTEIN - SERUM 5.9 g/dL (6.4-8.2)
[2021-03-27 06:49] LABS: ANION GAP 7.5 mmol/L (8-16); BILIRUBIN - TOTAL 0.23 mg/dL (0.2-1.3); CARBON DIOXIDE 26.9 mmol/L (21.0-32.0); POTASSIUM - SERUM 3.4 mmol/L (3.5-5.1)
[2021-03-27 06:57] LABS: CALCIUM 6.8 mg/dL (8.5-10.1)
--- NOTE | 2021-03-27 08:44 | NUR ---
PT BEDDING AND GOWN CHANGED, INCONTINENT OF URINE, NO FURTHER NEEDS AT THIS TIME
[2021-03-27 09:36] LABS: HEMATOCRIT 24.5 % (36.0-48.0)
[2021-03-27 10:28] VITALS: BP 150/71
--- NOTE | 2021-03-27 11:35 | NUR ---
UNIT 1 OF PRBC STARTED, VERFIED BY SECOND RN, PT TOLERATING WELL AT THIS TIME
[2021-03-27 14:19] VITALS: BP 149/74
[2021-03-27 18:06] LABS: HEMATOCRIT 27.8 % (36.0-48.0); HEMOGLOBIN 9.1 g/dL (12-16)
[2021-03-27 18:36] VITALS: BP 157/71
[2021-03-27 21:03] VITALS: BP 154/72
[2021-03-28 01:12] LABS: HEMATOCRIT 29.6 % (36.0-48.0)
[2021-03-28 05:13] VITALS: BP 156/76
[2021-03-28 07:01] LABS: BASOPHILS 0.8 % (0-2); HEMATOCRIT 29.9 % (36.0-48.0); HEMOGLOBIN 10.1 g/dL (12-16); LYMPHOCYTES 9.1 % (15-50); MCH 28.7 pg (26.0-34.0); MCHC 33.8 g/dL (31.0-37.0); MEAN PLATELET VOLUME 7.6 fL (7.4-10.4); MONOCYTES 3.1 % (2-11); PLATELET COUNT 206 10x3/uL (130-400); RDW 17.4 % (11.5-14.5)
[2021-03-28 07:09] LABS: RBC 3.51 10x6/uL (4.00-5.40); WBC 10.6 10x3/uL (4.8-10.8)
[2021-03-28 07:12] LABS: ALBUMIN 1.3 g/dL (3.4-5.0); ANION GAP 8.8 mmol/L (8-16); BILIRUBIN - TOTAL 0.46 mg/dL (0.2-1.3); CARBON DIOXIDE 25.8 mmol/L (21.0-32.0); CREATININE - SERUM 0.9 mg/dL (0.6-1.3); POTASSIUM - SERUM 3.6 mmol/L (3.5-5.1); PROTEIN - SERUM 6.2 g/dL (6.4-8.2)
[2021-03-28 07:27] LABS: CALCIUM 6.9 mg/dL (8.5-10.1)
[2021-03-28 08:36] LABS: HEMATOCRIT 30.6 % (36.0-48.0)
[2021-03-28 09:56] VITALS: BP 167/77
[2021-03-28 11:43] LABS: HEMATOCRIT 30.1 % (36.0-48.0)
[2021-03-28 14:06] VITALS: BP 179/82
[2021-03-28 16:52] LABS: HEMATOCRIT 29.6 % (36.0-48.0); HEMOGLOBIN 9.8 g/dL (12-16)
[2021-03-28 18:38] VITALS: BP 180/88
[2021-03-28 20:00] VITALS: BP 180/82
[2021-03-28 20:02] LABS: HEMATOCRIT 30.2 % (36.0-48.0); HEMOGLOBIN 10.1 g/dL (12-16)
[2021-03-29] VITALS: BP 149/68
[2021-03-29 00:48] LABS: HEMATOCRIT 28.6 % (36.0-48.0); HEMOGLOBIN 9.5 g/dL (12-16)
[2021-03-29 04:00] VITALS: BP 156/73
[2021-03-29 06:38] LABS: BASOPHILS 0.6 % (0-2); EOSINOPHILS 0.9 % (0-7); HEMATOCRIT 29.5 % (36.0-48.0); HEMOGLOBIN 9.9 g/dL (12-16); MCH 28.5 pg (26.0-34.0); MCHC 33.7 g/dL (31.0-37.0); MCV 84.5 fL (80.0-100.0); MEAN PLATELET VOLUME 7.4 fL (7.4-10.4); MONOCYTES 6.1 % (2-11); NEUTROPHILS 77.4 % (40-80); PLATELET COUNT 186 10x3/uL (130-400); RBC 3.49 10x6/uL (4.00-5.40); RDW 16.7 % (11.5-14.5); WBC 8.9 10x3/uL (4.8-10.8)
[2021-03-29 07:18] LABS: ALBUMIN 1.3 g/dL (3.4-5.0); BILIRUBIN - TOTAL 0.42 mg/dL (0.2-1.3); CARBON DIOXIDE 28.5 mmol/L (21.0-32.0); CREATININE - SERUM 0.9 mg/dL (0.6-1.3); POTASSIUM - SERUM 3.5 mmol/L (3.5-5.1)
--- NOTE | 2021-03-29 08:15 | NUR ---
RIGHT FOREARM IV LEAKING. REMOVED IV CATHETER INTACT. RESITED 22G IV TO LEFT FOREARM FIRST ATTEMPT. RESUMED IV FLUIDS AT 75ML/HR. REPORT GIVEN TO JARRED GARVEY.
[2021-03-29 08:17] LABS: HEMATOCRIT 30.8 % (36.0-48.0); HEMOGLOBIN 10.2 g/dL (12-16)
--- NOTE | 2021-03-29 08:17 | NUR ---
RECIEVED BEDSIDE REPORT. IN BED RESTING, FREE FROM SIGNS OF DISTRESS. BED LOW POSITION, CALL LIGHT IN REACH. WILL CONTINUE TO MONITOR.
[2021-03-29 10:02] VITALS: BP 172/87
[2021-03-29 12:32] LABS: HEMATOCRIT 29.2 % (36.0-48.0); HEMOGLOBIN 9.7 g/dL (12-16)
[2021-03-29 13:32] VITALS: BP 144/73
--- NOTE | 2021-03-29 14:42 | NUR ---
OT NOTE: PT COMPLETED TRICEP EXTENSION WITH SIT TO STANDS. PT COMPLETED SUPINE TO SIT WITH SBA. PT COMPLETED SIT TO STAND WITH MIN A. PT COMPLETED FACE HYGIENE WITH SETUP. [phone] HANSEL KRISHNAMURTHY COTA
[2021-03-29 16:31] LABS: HEMOGLOBIN 9.9 g/dL (12-16)
[2021-03-29 20:41] LABS: HEMATOCRIT 28.8 % (36.0-48.0); HEMOGLOBIN 9.5 g/dL (12-16)
[2021-03-30 00:38] LABS: HEMATOCRIT 28.3 % (36.0-48.0); HEMOGLOBIN 9.5 g/dL (12-16)
--- NOTE | 2021-03-30 03:52 | NUR ---
I have reviewed this patient and I concur with the Shift Assessment completed by the Licensed Practical Nurse today this shift.
[2021-03-30 06:36] LABS: BASOPHILS 0.6 % (0-2); EOSINOPHILS 1.3 % (0-7); HEMATOCRIT 29.3 % (36.0-48.0); HEMOGLOBIN 9.7 g/dL (12-16); LYMPHOCYTES 17.9 % (15-50); MCH 28.3 pg (26.0-34.0); MCHC 33.3 g/dL (31.0-37.0); MCV 85.1 fL (80.0-100.0); MEAN PLATELET VOLUME 7.6 fL (7.4-10.4); MONOCYTES 5.7 % (2-11); NEUTROPHILS 74.5 % (40-80); PLATELET COUNT 182 10x3/uL (130-400); RBC 3.44 10x6/uL (4.00-5.40); WBC 8.6 10x3/uL (4.8-10.8)
[2021-03-30 06:52] LABS: ALBUMIN 1.4 g/dL (3.4-5.0); ANION GAP 7.2 mmol/L (8-16); BILIRUBIN - TOTAL 0.39 mg/dL (0.2-1.3); CALCIUM 7.2 mg/dL (8.5-10.1); CARBON DIOXIDE 28.8 mmol/L (21.0-32.0); CREATININE - SERUM 0.9 mg/dL (0.6-1.3); PROTEIN - SERUM 6.2 g/dL (6.4-8.2)
--- NOTE | 2021-03-30 07:43 | NUR ---
0700 BEDSIDE REPORT RECEIVED FROM MATILDE INFORMED PATIENT THAT HER DAUGHTER ELIANA CALLED AND WILL COME VISIT HER THIS AM
--- NOTE | 2021-03-30 07:49 | NUR ---
0700 BEDSIDE REPORT RECEIVED FROM NURSE ESTEFANIA ASLEEP EASILY AWAKENS TO VO;ICE LAB STAFF PRESENT TO DRAW SPECIMEN FOR H&H
[2021-03-30 07:50] LABS: HEMATOCRIT 29.3 % (36.0-48.0); HEMOGLOBIN 9.7 g/dL (12-16)
--- NOTE | 2021-03-30 08:43 | NUR ---
WE ARE CONTINUING TO FOLLOW THE PATIENT FOR STABILITY AND THEN WILL RESUBMIT TO INPATIENT REHAB IF SHE IS STILL WILLING TO COME. STEVIE CEBALLOS RN CLINICAL LIAISON, INPATIENT REHAB.
[2021-03-30 12:13] LABS: HEMATOCRIT 31.3 % (36.0-48.0); HEMOGLOBIN 10.2 g/dL (12-16)
--- NOTE | 2021-03-30 13:58 | NUR ---
1300 ASSIST X 2 TO RETURN TO BED INCONTINENT OF STOOL NOTED COMPLETE LINEN CHANGE DONE
[2021-03-30 16:06] LABS: HEMATOCRIT 31.6 % (36.0-48.0); HEMOGLOBIN 10.3 g/dL (12-16)
[2021-03-30 16:31] VITALS: BP 161/77
[2021-03-30 20:00] VITALS: BP 159/77
[2021-03-31] VITALS: BP 114/69
[2021-03-31 04:00] VITALS: BP 161/78
--- NOTE | 2021-03-31 07:19 | OP ---
PATIENT NAME: JERE MICHEL MEDICAL RECORD: [id number] :53 LOCATION:[id number] ADMISSION DATE:03/16/21 SURGEON: ALEK PATEL DO DATE OF OPERATION: 03/21/2021 PROCEDURE PERFORMED: Left below knee amputation. PREOPERATIVE DIAGNOSIS: Left diabetic foot infection. POSTOPERATIVE DIAGNOSIS: Left diabetic foot infection. INDICATIONS: Ms. Michel is a 65-year-old female who had a severe left diabetic foot infection with necrotic tissue with I&D done by a gandy dancer and had several open wounds in the foot that were draining. She got to the point where she was tired of dealing with that and wanted something done further for permanent as they were quite open wounds and they were not going to close. I informed her that we will need to do a below knee amputation and she was aware of the risks of this including infection, bleeding, damage to nerves and vessels, phantom pain, continued pain, need for further surgeries, stump site issues and she signed the consent. SURGEON: Alek Patel DO. DESCRIPTION OF PROCEDURE: The patient was taken to the operative suite after given a block by Anesthesia in preoperative area, laid in supine position, given general anesthetic and LMA was placed. The left lower extremity was then prepped and draped in sterile fashion. Timeout was performed. Everyone was in agreement with correct site, side, patient and procedure. I then began by marking out an incision approximately 12 cm from the joint line and marked out a fishmouth incision and cut through with a 10 blade scalpel. I made careful dissection down through each compartment by compartment and then once I did that I cut through the tibia, protecting with a periosteal elevator on the posterior side so I did not cut the vessels. I then cut the fibula a centimeter proximal to that and then removed part of the fibula that was jagged with a rongeur. I then tied off the vessels and did a traction neurotomy with the posterior tibial nerve and then let the tourniquet down. The tourniquet was inflated prior to starting after I exsanguinated the left lower extremity with an Esmarch and it was up for 14 minutes. It was up to 350 mmHg and then let it down upon removing the lower leg. It did have a bleeder. I then told him to put it back up and it was only out for about 30 seconds when I coagulated with Aquamantys. I then let it back down and coagulated any other bleeding with Aquamantys. At that time, we then thoroughly went through and coagulated any bleeding with Aquamantys and the Bovie. We then drilled a hole after debriding the muscle tissue. We then drilled a hole through the tibia and put a #2 Ethibond through it and did a Ayuhs-Tao stitch through the gastroc tendon and brought it up to the tibia creating a nice posterior flap with plenty of muscle padding. I then put another stitch [id number] of #2 Ethibond on the medial and lateral sides of that holding it to the periosteum. I then using #1 Vicryl in an inverted interrupted and evnldw-nc-[id number] fashion to pull the fascia together and then 2-0 Vicryl in an inverted interrupted fashion to hold the skin together and then two 2-0 Prolene on the skin in a horizontal mattress fashion. I then cleaned the stump site and prepped with Cavilon and put the Prevena Restor VAC on and it held with good suction. She was then awakened and taken to recovery in stable condition. OPERATIVE REPORT [id number] JERE MICHEL BLOOD LOSS: Minimal. COMPLICATIONS: None. TRANSINT:[id number] Voice Confirmation ID: [id number] DOCUMENT ID: [id number] ALEK PATEL DO at 0719 CC: [id number] DICTATION DATE: 03/21/21 1528 MANAGER RESOURCE: 03/23/212217 ADM IN [place] [id number] [place] [id number]
--- NOTE | 2021-03-31 08:04 | NUR ---
0700 BEDSIDE REPORT RECEIVED RESTING WITH EYES CLOSED AWAKENS TO VOICE
[2021-03-31 08:16] VITALS: BP 147/69
[2021-03-31 08:25] LABS: BASOPHILS 0.7 % (0-2); HEMATOCRIT 27.5 % (36.0-48.0); HEMOGLOBIN 9.2 g/dL (12-16); LYMPHOCYTES 15.2 % (15-50); MCH 28.5 pg (26.0-34.0); MCHC 33.5 g/dL (31.0-37.0); MCV 84.9 fL (80.0-100.0); MEAN PLATELET VOLUME 7.5 fL (7.4-10.4); MONOCYTES 5.2 % (2-11); NEUTROPHILS 77.9 % (40-80); PLATELET COUNT 177 10x3/uL (130-400); RBC 3.23 10x6/uL (4.00-5.40); WBC 9.1 10x3/uL (4.8-10.8)
[2021-03-31 08:52] LABS: ALBUMIN 1.4 g/dL (3.4-5.0); ANION GAP 7.8 mmol/L (8-16); BILIRUBIN - TOTAL 0.32 mg/dL (0.2-1.3); CALCIUM 7.4 mg/dL (8.5-10.1); CARBON DIOXIDE 28.7 mmol/L (21.0-32.0); CREATININE - SERUM 0.9 mg/dL (0.6-1.3); POTASSIUM - SERUM 3.5 mmol/L (3.5-5.1); PROTEIN - SERUM 6.3 g/dL (6.4-8.2)
[2021-03-31 12:43] VITALS: BP 138/66
--- NOTE | 2021-03-31 15:07 | NUR ---
Nutrition follow-up: Pt receiving a consistent CHO diet PO intake ~50% of meals Labs reviewed; Glucose under fair control Wt: 163E +BM Pt to tx to IP rehab possibly today. RDN will continue to monitor patients progress toward nutrition goals. Pt may benefit from an appetite stimulant due to continued poor po intake. RDN will follow-up in 3-5 days.
--- NOTE | 2021-03-31 15:16 | NUR ---
SPOKE WITH LIZA ALANIZ CM WITH [facility]. AFTER RESUBMITTING FOR AUTH, SHE CALLED AND STATED THAT THE PATIENT'S FIRST AUTH REQUEST IS STILL OPEN AND SHE IS IN A P2P WINDOW. I EXPLAINED THAT I WAS UNAWARE OF THIS AND DID WHAT SHE TOLD ME THE LAST TIME WE TALKED. SHE STATED THAT IT WAS OPEN AND IF THE DOCTOR WANTED TO CALL AND DO A P2P, THEY COULD CALL BY TOMORROW AND MY HAVE THE DENIAL OVERTURNED. I HAVE CALLED AND SPOKE WITH PARUL ALANIZ RN CM IN REGARDS TO THIS. SHE WILL TALK WITH NAMRATA IN REGARDS TO THE P2P. STEVIE CEBALLOS RN CLINICAL LIAISON, INPATIENT REHAB.
[2021-03-31 16:38] VITALS: BP 143/76
[2021-03-31 20:00] VITALS: BP 148/72
[2021-04-01 04:00] VITALS: BP 162/78
[2021-04-01 05:48] LABS: BASOPHILS 5.7 % (0-2); EOSINOPHILS 1.2 % (0-7); HEMATOCRIT 29.3 % (36.0-48.0); HEMOGLOBIN 9.7 g/dL (12-16); MCH 28.5 pg (26.0-34.0); MCHC 33.1 g/dL (31.0-37.0); MCV 86.2 fL (80.0-100.0); MEAN PLATELET VOLUME 7.4 fL (7.4-10.4); MONOCYTES 5.2 % (2-11); NEUTROPHILS 80.9 % (40-80); PLATELET COUNT 156 10x3/uL (130-400); RDW 17.3 % (11.5-14.5); WBC 7.7 10x3/uL (4.8-10.8)
[2021-04-01 06:19] LABS: ALBUMIN 1.5 g/dL (3.4-5.0); ANION GAP 8.7 mmol/L (8-16); BILIRUBIN - TOTAL 0.31 mg/dL (0.2-1.3); CALCIUM 7.2 mg/dL (8.5-10.1); CARBON DIOXIDE 27.6 mmol/L (21.0-32.0); CREATININE - SERUM 0.9 mg/dL (0.6-1.3); PROTEIN - SERUM 6.3 g/dL (6.4-8.2)
[2021-04-01 06:20] LABS: POTASSIUM - SERUM 4.3 mmol/L (3.5-5.1)
[2021-04-01 08:46] VITALS: BP 132/72
[2021-04-01 13:10] VITALS: BP 147/77
[2021-04-01 17:55] VITALS: BP 157/79
--- NOTE | 2021-04-01 19:26 | NUR ---
OT NOTE: PT COMPLETED SUPINE TO SIT WITH CGA. PT COMPLETED EOB SITTING WITH SPV. PT COMPLETED FACE AND HAND HYGIENE AT EOB WITH SETUP. PT COMPLETED BUE AROM EXS TOLERATED AT EOB. [id number] HANSEL KRISHNAMURTHY COTA
[2021-04-01 20:00] VITALS: BP 152/75
[2021-04-02] VITALS: BP 148/66
[2021-04-02 04:00] VITALS: BP 156/70
[2021-04-02 05:54] LABS: BASOPHILS 0.7 % (0-2); EOSINOPHILS 1.3 % (0-7); HEMATOCRIT 27.4 % (36.0-48.0); LYMPHOCYTES 18.1 % (15-50); MCH 28.5 pg (26.0-34.0); MCV 86.4 fL (80.0-100.0); MEAN PLATELET VOLUME 7.7 fL (7.4-10.4); MONOCYTES 6.6 % (2-11); NEUTROPHILS 73.3 % (40-80); PLATELET COUNT 150 10x3/uL (130-400); RBC 3.16 10x6/uL (4.00-5.40); RDW 17.6 % (11.5-14.5); WBC 7.5 10x3/uL (4.8-10.8)
[2021-04-02 06:26] LABS: ALBUMIN 1.5 g/dL (3.4-5.0); ANION GAP 7.9 mmol/L (8-16); BILIRUBIN - TOTAL 0.33 mg/dL (0.2-1.3); CALCIUM 7.5 mg/dL (8.5-10.1); CARBON DIOXIDE 28.2 mmol/L (21.0-32.0); CREATININE - SERUM 0.9 mg/dL (0.6-1.3); POTASSIUM - SERUM 4.1 mmol/L (3.5-5.1); PROTEIN - SERUM 6.2 g/dL (6.4-8.2)
[2021-04-02 09:14] VITALS: BP 156/74
--- NOTE | 2021-04-02 11:52 | MORECARE ---
CASE MANAGEMENT DISCHARGE SUMMARY PATIENT: JERE MEDELLIN UNIT: [id number] ADM DATE: 03/16/21 AGE: 65 : 54 SEX: F ROOM/BED: D.2238 AUTHOR: CHARO,DOC PHYSICIAN: REFERRING PHYSICIAN: JOJO FELIZ MD DATE OF SERVICE: 04/02/21 Case Management Discharge Planning Summary COMMENTS ENTERED DATE: 04/02/21 11:44 CT COMMENT TYPE: Discharge Planning REVIEWER: Huyen Del Rio SPOKE WITH PATIENT TODAY AND IF HER INSURANCE DOESN'T APPROVE INPATIENT REHAB SHE WOULD LIKE [facility] FOR REHAB. MARIO SIGNED AND PLACED ON CHART. ENTERED DATE: 03/26/21 13:49 CT COMMENT TYPE: Discharge Planning REVIEWER: Huyengemma Del Rio CM met with patient at bedside after obtaining verbal consent. CM discussed availability / needs of home health, REHAB and medical equipment. Patient states will need rehab when medically stable. MARIO signed for inpatient rehab [facility] and imm signed and placed on chart. Anticipate patient to go to inpatient rehab when medically stable. She does have a wound vac in place and would like a knee walker for home. CM to follow and assist as needed. DCP REVIEW SUMMARY ANTICIPATED D/C DATE: EXPECTED LOS : CASE STATUS: DCP Initiated INITIAL REVIEW: 03/16/2021 INITIAL REVIEWER: Huyen Del Rio FINAL DISCHARGE DISPOSITION: : FINAL REVIEWER: FINAL REVIEW DATE: DCP Focus Questions & Answers DCP Screen QUESTION: ANSWER High Risk Factors: : Hosp related to CHF, COPD, DM, End Stage Ds, CVA, CA DCP Evaluation QUESTION: ANSWER Patient's current cognitive status: : *Oriented to person, place, situation, time and present Patient's ability to cope with chronic illness : b. Minimal (2 - 3 ED visits in 6 mos., limited financial resources, occasionally misses appts.) Functional screen assessment: : New onset in difficulty in gait, balance, or transfer difficulties Physical Status: : Mobility impaired Living Arrangements: : Home with others Baseline cognitive status: : *Oriented to person, place, situation, time and present Living arrangements comments: : SISTER LIVES WITH HER BUT IS IN BAD HEALTH Pharm[facility]): : [facility] Does Patient have transportation to get home and to follow-up medical appointments when discharged from the hospital? : Yes Would patient like to participate in any Care Coordination programs (if applicable): : Not applicable Does the patient have electricity at home? : Yes Does the patient have running water in their house? : Yes Other Equipment comments: : SARAI [place] Mental health screen: : No mental health history Resources / Services in place: : Home health Contact information for resources in use: : [facility] Problems identified by the patient regarding discharge: : STATES SHE MAY MOVE TO [place] TO BE CLOSER TO HER SON. STATES SHE MAY NEED A KNEE WALKER AT TIME OF DISCHARGE. DCP Re-evaluation QUESTION: ANSWER Would patient like to participate in any Care Coordination programs (if applicable): : Not applicable PATIENT: JERE MEDELLIN ENCOUNTER: [id number] MEDICAL RECORD#: [id number] ADMISSION DATE: 03/16/2021 DISCHARGE DATE: ATTENDING MD: JOJO SOTO : AGE: 65 MARITAL STATUS: D DC PLAN ID: [id number] FACILITY: [facility] PRINTED ON: 04/02/21 11:51 CT All edits/amendments must be made on the electronic document DICTATION DATE: 04/02/21 115 MANAGER SHIFT: ZEN 04/02/21 115 RPT#: [id number] DC DATE: STATUS: ADM IN [facility] [address] [place] [address] END OF REPORT
[2021-04-02 13:24] VITALS: BP 135/70
--- NOTE | 2021-04-02 17:25 | NUR ---
OT NOTE: PT COMPLETED BED MOBILITY WITH SBA. PT COMPLETED BUE AROM EXS TOLERATED. PT COMPLETED FACE HYGIENE WITH SETUP. [phone] THANK YOU,BERENICE YEUNG
[2021-04-02 18:05] VITALS: BP 139/69
[2021-04-03 06:47] LABS: BASOPHILS 0.5 % (0-2); HEMATOCRIT 27.5 % (36.0-48.0); HEMOGLOBIN 9.1 g/dL (12-16); LYMPHOCYTES 16.1 % (15-50); MCH 28.7 pg (26.0-34.0); MCV 86.7 fL (80.0-100.0); MEAN PLATELET VOLUME 7.6 fL (7.4-10.4); NEUTROPHILS 74.4 % (40-80); PLATELET COUNT 142 10x3/uL (130-400); RBC 3.17 10x6/uL (4.00-5.40); RDW 17.5 % (11.5-14.5); WBC 7.3 10x3/uL (4.8-10.8)
[2021-04-03 06:58] LABS: ALBUMIN 1.6 g/dL (3.4-5.0); ANION GAP 5.8 mmol/L (8-16); BILIRUBIN - TOTAL 0.26 mg/dL (0.2-1.3); CALCIUM 7.3 mg/dL (8.5-10.1); CARBON DIOXIDE 29.9 mmol/L (21.0-32.0); POTASSIUM - SERUM 4.7 mmol/L (3.5-5.1)
[2021-04-03 11:59] VITALS: BP 163/75
[2021-04-03 17:46] VITALS: BP 159/78
[2021-04-03 22:16] VITALS: BP 149/62
[2021-04-04 00:08] VITALS: BP 142/69
[2021-04-04 04:37] VITALS: BP 155/76
[2021-04-04 07:00] LABS: BASOPHILS 0.7 % (0-2); EOSINOPHILS 2.6 % (0-7); HEMATOCRIT 27.3 % (36.0-48.0); HEMOGLOBIN 8.9 g/dL (12-16); LYMPHOCYTES 19.4 % (15-50); MCH 28.3 pg (26.0-34.0); MCHC 32.7 g/dL (31.0-37.0); MCV 86.4 fL (80.0-100.0); MONOCYTES 6.5 % (2-11); NEUTROPHILS 70.8 % (40-80); PLATELET COUNT 136 10x3/uL (130-400); RBC 3.16 10x6/uL (4.00-5.40); RDW 17.7 % (11.5-14.5); WBC 6.8 10x3/uL (4.8-10.8)
[2021-04-04 07:13] LABS: ALBUMIN 1.5 g/dL (3.4-5.0); BILIRUBIN - TOTAL 0.26 mg/dL (0.2-1.3); CALCIUM 7.3 mg/dL (8.5-10.1); CARBON DIOXIDE 27.2 mmol/L (21.0-32.0); CREATININE - SERUM 0.9 mg/dL (0.6-1.3); POTASSIUM - SERUM 4.2 mmol/L (3.5-5.1); PROTEIN - SERUM 6.3 g/dL (6.4-8.2)
[2021-04-04 09:11] VITALS: BP 147/72
[2021-04-04 12:51] VITALS: BP 153/72
[2021-04-04 16:32] VITALS: BP 150/96
[2021-04-04 22:06] VITALS: BP 132/67
[2021-04-05 05:37] LABS: BASOPHILS 0.8 % (0-2); EOSINOPHILS 2.8 % (0-7); HEMATOCRIT 26.1 % (36.0-48.0); HEMOGLOBIN 8.8 g/dL (12-16); LYMPHOCYTES 20.7 % (15-50); MCH 29.2 pg (26.0-34.0); MCHC 33.8 g/dL (31.0-37.0); MCV 86.4 fL (80.0-100.0); MEAN PLATELET VOLUME 8.2 fL (7.4-10.4); NEUTROPHILS 67.7 % (40-80); PLATELET COUNT 143 10x3/uL (130-400); RBC 3.02 10x6/uL (4.00-5.40); RDW 17.9 % (11.5-14.5); WBC 6.4 10x3/uL (4.8-10.8)
[2021-04-05 06:07] LABS: ALBUMIN 1.6 g/dL (3.4-5.0); ANION GAP 11.1 mmol/L (8-16); BILIRUBIN - TOTAL 0.24 mg/dL (0.2-1.3); CALCIUM 7.4 mg/dL (8.5-10.1); CARBON DIOXIDE 26.4 mmol/L (21.0-32.0); CREATININE - SERUM 1.1 mg/dL (0.6-1.3); POTASSIUM - SERUM 4.5 mmol/L (3.5-5.1); PROTEIN - SERUM 6.3 g/dL (6.4-8.2)
--- NOTE | 2021-04-05 07:00 | NUR ---
MORNING ROUNDS- AAOX4 UPON ENTERING. DENIES ANY NEEDS AT THIS TIME. BED IN LOWEST POSITION, BED RAILS X2, CALL LIGHT WITHIN REACH. WILL CONTINUE POC.
[2021-04-05 08:00] VITALS: BP 157/79
--- NOTE | 2021-04-05 09:03 | NUR ---
AAOX4 UPON ENTERING. MORNING MEDICATION GIVEN, NO DIFFICULTIES. UPRIGHT IN BED EATING BREAKFAST. DENIES ANY NEEDS AT THIS TIME. WILL CONTINUE POC.
--- NOTE | 2021-04-05 11:21 | NUR ---
HUNG IV ABX, TOLERATING WELL. NO INSULIN FOR SUGAR OF 146. CLEANED UP BM. LEFT RESTING COMFORTABLY. DENIES FURTHER NEEDS AT THIS TIME. WILL CONTINUE POC.
[2021-04-05 12:11] VITALS: BP 133/67
--- NOTE | 2021-04-05 12:43 | MORECARE ---
CASE MANAGEMENT DISCHARGE SUMMARY PATIENT: JERE MEDELLIN UNIT: [id number] ADM DATE: 03/16/21 AGE: 65 : 54 SEX: F ROOM/BED: D.2238 AUTHOR: CHARO,DOC PHYSICIAN: REFERRING PHYSICIAN: JOJO FELIZ MD DATE OF SERVICE: 04/05/21 Case Management Discharge Planning Summary COMMENTS ENTERED DATE: 04/05/21 12:39 CT COMMENT TYPE: Discharge Planning REVIEWER: Huyen Eliane [facility] HAS NO BEDS AVAILABLE UNTIL MONDAY. REFERRAL FAXED TO [facility]. WAITING CALL BACK. ENTERED DATE: 04/02/21 11:44 CT COMMENT TYPE: Discharge Planning REVIEWER: Huyen Del Rio SPOKE WITH PATIENT TODAY AND IF HER INSURANCE DOESN'T APPROVE INPATIENT REHAB SHE WOULD LIKE [facility] FOR REHAB. MARIO SIGNED AND PLACED ON CHART. ENTERED DATE: 03/26/21 13:49 CT COMMENT TYPE: Discharge Planning REVIEWER: Huyen Del Rio CM met with patient at bedside after obtaining verbal consent. CM discussed availability / needs of home health, REHAB and medical equipment. Patient states will need rehab when medically stable. MARIO signed for inpatient rehab [facility] and imm signed and placed on chart. Anticipate patient to go to inpatient rehab when medically stable. She does have a wound vac in place and would like a knee walker for home. CM to follow and assist as needed. DCP REVIEW SUMMARY ANTICIPATED D/C DATE: EXPECTED LOS : CASE STATUS: DCP Initiated INITIAL REVIEW: 03/16/2021 INITIAL REVIEWER: Huyen Del Rio FINAL DISCHARGE DISPOSITION: : FINAL REVIEWER: FINAL REVIEW DATE: DCP Focus Questions & Answers DCP Screen QUESTION: ANSWER High Risk Factors: : Hosp related to CHF, COPD, DM, End Stage Ds, CVA, CA DCP Evaluation QUESTION: ANSWER Patient's ability to cope with chronic illness : b. Minimal (2 - 3 ED visits in 6 mos., limited financial resources, occasionally misses appts.) Patient's current cognitive status: : *Oriented to person, place, situation, time and present Functional screen assessment: : New onset in difficulty in gait, balance, or transfer difficulties Physical Status: : Mobility impaired Living Arrangements: : Home with others Living arrangements comments: : SISTER LIVES WITH HER BUT IS IN BAD HEALTH Baseline cognitive status: : *Oriented to person, place, situation, time and present Pharmacy name(s): : [facility] Does Patient have transportation to get home and to follow-up medical appointments when discharged from the hospital? : Yes Would patient like to participate in any Care Coordination programs (if applicable): : Not applicable Does the patient have electricity at home? : Yes Does the patient have running water in their house? : Yes Other Equipment comments: : [place]AI [place] Mental health screen: : No mental health history Resources / Services in place: : Home health Contact information for resources in use: : [facility] Problems identified by the patient regarding discharge: : STATES SHE MAY MOVE TO [place] TO BE CLOSER TO HER SON. STATES SHE MAY NEED A KNEE WALKER AT TIME OF DISCHARGE. DCP Re-evaluation QUESTION: ANSWER Would patient like to participate in any Care Coordination programs (if applicable): : Not applicable PROVIDER NETWORKING REVIEW DATE: 04/05/2021 SERVICE TYPE: Long-Term Facility REVIEWER: Huyen Del Rio REVIEW DATE: 04/05/2021 SERVICE TYPE: Long-Term Facility REVIEWER: Hyuen Del Rio PATIENT: JERE MEDELLIN ENCOUNTER: [id number] MEDICAL RECORD#: [id number] ADMISSION DATE: 03/16/2021 DISCHARGE DATE: ATTENDING MD: JOJO SOTO : AGE: 65 MARITAL STATUS: D DC PLAN ID: [id number] FACILITY: [facility] PRINTED ON: 04/05/21 12:43 CT All edits/amendments must be made on the electronic document DICTATION DATE: 04/05/211242 ASSISTANT PRESS OPERATOR: ZEN 04/05/21 124 RPT#: [id number] DC DATE: STATUS: ADM IN [facility] [address] [place] [address] END OF REPORT
--- NOTE | 2021-04-05 13:12 | NUR ---
RESTING COMFORTABLY IN BED, DENIES ANY NEEDS AT THIS TIME. WILL CONTINUE POC.
--- NOTE | 2021-04-05 14:23 | NUR ---
PRN NORCO FOR PAIN. RESTING UPRIGHT IN BEDSIDE ROSARIO. APPLIED BORDER DRESSING AND LAURA WRAP TO LOWER LEFT LEG STUMP. DENIES ANY NEEDS. WILL CONTINUE POC.
--- NOTE | 2021-04-05 14:52 | NUR ---
I have reviewed this patient and I concur with the Shift Assessment completed by the Licensed Practical Nurse today this shift.
[2021-04-05 15:32] VITALS: BP 133/65
--- NOTE | 2021-04-05 15:43 | NUR ---
Nutrition Re-Assessment Diet: Diabetic + Banana and Glucerna shake with meals PO intake: 75-100% x 3 meals yesterday Last BM: 04/04/21 x 2 Wt: 164# (03/17/21)- no new weight Meds noted: SSI, NS@30 Labs noted: Glu 135(H), POC Glu 141(H) Estimated nutrition needs: 1500-2100cal (25-35kcal/kg Adj), 60-78gms protein (1-1.3gms/kg), 1500-2100mL fluid (or per MD) Nutrition diagnosis: -Inadequate oral intake r/t scheduled procedure, DKA AEB NPO for endoscopy today. - RESOLVED -Altered nutrition related lab values r/t DM dx AEB elevated blood glucose. Nutrition goals: -PO intake =/>75% meals -Meet fluid needs -Stable weight DHS -Blood glucose to trend nearer WNL Recommendations/Interventions: -Recommend Continue current diet. Will continue to honor food preferences within diet restrictions. -Recommend getting new weight. -RD will follow-up within 7 days.
--- NOTE | 2021-04-05 16:38 | NUR ---
OT NOTE: PT COMPLETED ADL MOB WITH RW AND CGA. PT COMPLETED SIT TO STAND WITH CGA. PT IS SAFE FOR STAFF TO MOBILIZE. PT COMPLETED FACE HYGIENE WITH SETUP. [phone] HANSEL KRISHNAMURTHY COTA
--- NOTE | 2021-04-05 16:39 | NUR ---
8 UNITS INSULIN PER SLIDING SCALE FOR SUGAR OF 212. RESTING COMFORTABLY. DENIES FURTHER NEEDS. WILL CONITNUE POC.
[2021-04-05 20:00] VITALS: BP 142/67
[2021-04-06] VITALS: BP 161/72
[2021-04-06 04:00] VITALS: BP 149/74
[2021-04-06 05:43] LABS: BASOPHILS 0.7 % (0-2); EOSINOPHILS 3.8 % (0-7); HEMATOCRIT 26.7 % (36.0-48.0); HEMOGLOBIN 8.8 g/dL (12-16); LYMPHOCYTES 19.1 % (15-50); MCH 28.4 pg (26.0-34.0); MEAN PLATELET VOLUME 8.2 fL (7.4-10.4); MONOCYTES 6.9 % (2-11); NEUTROPHILS 69.5 % (40-80); PLATELET COUNT 151 10x3/uL (130-400); RBC 3.11 10x6/uL (4.00-5.40); WBC 6.1 10x3/uL (4.8-10.8)
[2021-04-06 06:38] LABS: ALBUMIN 1.7 g/dL (3.4-5.0); ANION GAP 11.5 mmol/L (8-16); BILIRUBIN - TOTAL 0.38 mg/dL (0.2-1.3); CALCIUM 7.6 mg/dL (8.5-10.1); CARBON DIOXIDE 26.8 mmol/L (21.0-32.0); POTASSIUM - SERUM 4.3 mmol/L (3.5-5.1); PROTEIN - SERUM 6.6 g/dL (6.4-8.2)
[2021-04-06 08:45] VITALS: BP 133/60
[2021-04-06 12:00] VITALS: BP 162/78
--- NOTE | 2021-04-06 12:31 | MORECARE ---
CASE MANAGEMENT DISCHARGE SUMMARY PATIENT: JERE MEDELLIN UNIT: [id number] ADM DATE: 03/16/21 AGE: 65 : 54 SEX: F ROOM/BED: D.2238 AUTHOR: CHARO,DOC PHYSICIAN: REFERRING PHYSICIAN: JOJO FELIZ MD DATE OF SERVICE: 04/06/21 Case Management Discharge Planning Summary COMMENTS ENTERED DATE: 04/06/21 12:19 CT COMMENT TYPE: Discharge Planning REVIEWER: Huyen ER[facility] DID NOT HAVE ANY BEDS AVAILABLE. [facility] AND SPOKE WITH THEM TODAY. THEY ARE SUBMITTING AUTH. I ANTICIPATE HER BEING APPROVED FOR REHAB BY TOMORROW MORNING AND CAN DC TO [facility] AT THAT TIME. ENTERED DATE: 04/05/21 12:39 CT COMMENT TYPE: Discharge Planning REVIEWER: Huyen ER[facility] HAS NO BEDS AVAILABLE UNTIL MONDAY. [facility] WAITING CALL BACK. ENTERED DATE: 04/02/21 11:44 CT COMMENT TYPE: Discharge Planning REVIEWER: Huyen Del Rio SPOKE WITH PATIENT TODAY AND IF HER INSURANCE DOESN'T APPROVE INPATIENT REHAB SHE WOULD LIKE [facility] FOR REHAB. MARIO SIGNED AND PLACED ON CHART. ENTERED DATE: 03/26/21 13:49 CT COMMENT TYPE: Discharge Planning REVIEWER: Huyen Del Rio CM met with patient at bedside after obtaining verbal consent. CM discussed availability / needs of home health, REHAB and medical equipment. Patient states will need rehab when medically stable. MARIO signed for inpatient rehab [facility] and imm signed and placed on chart. Anticipate patient to go to inpatient rehab when medically stable. She does have a wound vac in place and would like a knee walker for home. CM to follow and assist as needed. DCP REVIEW SUMMARY ANTICIPATED D/C DATE: EXPECTED LOS : CASE STATUS: DCP Initiated INITIAL REVIEW: 03/16/2021 INITIAL REVIEWER: Huyen Del Rio FINAL DISCHARGE DISPOSITION: : FINAL REVIEWER: FINAL REVIEW DATE: DCP Focus Questions & Answers DCP Screen QUESTION: ANSWER High Risk Factors: : Hosp related to CHF, COPD, DM, End Stage Ds, CVA, CA DCP Evaluation QUESTION: ANSWER Patient's current cognitive status: : *Oriented to person, place, situation, time and present Patient's ability to cope with chronic illness : b. Minimal (2 - 3 ED visits in 6 mos., limited financial resources, occasionally misses appts.) Physical Status: : Mobility impaired Functional screen assessment: : New onset in difficulty in gait, balance, or transfer difficulties Living Arrangements: : Home with others Baseline cognitive status: : *Oriented to person, place, situation, time and present Living arrangements comments: : SISTER LIVES WITH HER BUT IS IN [facility]acy [facility]): : [facility] Does Patient have transportation to get home and to follow-up medical appointments when discharged from the hospital? : Yes Would patient like to participate in any Care Coordination programs (if applicable): : Not applicable Does the patient have electricity at home? : Yes Does the patient have running water in their house? : Yes Other Equipment comments: : SARAI [place] Mental health screen: : No mental health history Resources / Services in place: : Home health Contact information for resources in use: : [facility] Problems identified by the patient regarding discharge: : STATES SHE MAY MOVE TO [place] TO BE CLOSER TO HER SON. STATES SHE MAY NEED A KNEE WALKER AT TIME OF DISCHARGE. DCP Re-evaluation QUESTION: ANSWER Would patient like to participate in any Care Coordination programs (if applicable): : Not applicable PROVIDER NETWORKING REVIEW DATE: 04/05/2021 SERVICE TYPE: Senior Living Facility REVIEWER: Huyen Del Rio REVIEW DATE: 04/05/2021 SERVICE TYPE: Senior Living Facility REVIEWER: Huyen Del Rio PATIENT: JERE MEDELLIN ENCOUNTER: [id number] MEDICAL RECORD#: [id number] ADMISSION DATE: 03/16/2021 DISCHARGE DATE: ATTENDING MD: JOJO SOTO : AGE: 65 MARITAL STATUS: D DC PLAN ID: [id number] FACILITY: [facility] PRINTED ON: 04/06/21 12:31 CT All edits/amendments must be made on the electronic document DICTATION DATE: 04/06/21 1231 TAR CHASER: ZEN 04/06/21 1231 RPT#: [id number] DC DATE: STATUS: ADM IN [facility] [address] [place] [address] END OF REPORT
--- NOTE | 2021-04-06 15:44 | NUR ---
OT NOTE: PT COMPLETED BED MOBILITY WITH SBA. PT COMPLETED LB HYGIENE WITH TOTAL A. PT COMPLETED UB HYGIENE WITH SETUP. [phone] HANSEL KRISHNAMURTHY COTA
[2021-04-06 20:00] VITALS: BP 157/74
[2021-04-07] VITALS: BP 145/66
[2021-04-07 04:00] VITALS: BP 146/69
[2021-04-07 06:19] LABS: BASOPHILS 0.7 % (0-2); EOSINOPHILS 3.7 % (0-7); HEMATOCRIT 25.9 % (36.0-48.0); HEMOGLOBIN 8.6 g/dL (12-16); LYMPHOCYTES 20.4 % (15-50); MCHC 33.4 g/dL (31.0-37.0); MCV 87.1 fL (80.0-100.0); MEAN PLATELET VOLUME 8.7 fL (7.4-10.4); MONOCYTES 7.1 % (2-11); NEUTROPHILS 68.1 % (40-80); PLATELET COUNT 177 10x3/uL (130-400); RBC 2.97 10x6/uL (4.00-5.40); RDW 17.9 % (11.5-14.5); WBC 6.1 10x3/uL (4.8-10.8)
[2021-04-07 07:00] LABS: ALBUMIN 1.7 g/dL (3.4-5.0); BILIRUBIN - TOTAL 0.33 mg/dL (0.2-1.3); CALCIUM 7.5 mg/dL (8.5-10.1); CARBON DIOXIDE 25.9 mmol/L (21.0-32.0); POTASSIUM - SERUM 4.9 mmol/L (3.5-5.1); PROTEIN - SERUM 6.6 g/dL (6.4-8.2)
[2021-04-07 08:57] VITALS: BP 148/61
[2021-04-07 12:22] VITALS: BP 167/68
--- NOTE | 2021-04-07 14:21 | NUR ---
I have reviewed this patient and I concur with the Shift Assessment completed by the Licensed Practical Nurse today this shift.
--- NOTE | 2021-04-07 14:49 | NUR ---
ASSISTED PATIENT TO BSC FROM CHAIR THEN BACK TO BED PER PATIENT REQUEST, LAURA BANDAGE TAKEN OFF LEFT KNEE, PROPPED ON PILLOW. CONTINUE WITH PLAN OF CARE
[2021-04-07 17:08] VITALS: BP 161/66
--- NOTE | 2021-04-07 17:17 | NUR ---
OT NOTE: BED MOB WITH MIN ASSIST FOR ROLLING AND SUPINE TO SIT; PT REPORTED FEELING GROGGY TODAY.. STATES, "I JUST CANT WAKE UP"..PT WITH GOOD EOB SITTING BALANCE; REQUIRED MAX ASSIST WITH PERINEAL CARE; SET UP FOR FEEDING AND GROOMING. PT HOPEFUL SHE WILL GET TO GO TO REHAB TODAY. PARUL AGUILAR,OTR/L
--- NOTE | 2021-04-07 19:30 | NUR ---
PT IN BED, AAO X 3, RESP EVEN AND UNLABORED, NO DISTRESS NOTED, CL IN REACH, SR UP X 2.
[2021-04-07 20:00] VITALS: BP 146/62
[2021-04-08] VITALS: BP 185/78
[2021-04-08 04:03] VITALS: BP 158/71
--- NOTE | 2021-04-08 05:11 | NUR ---
I have reviewed this patient and I concur with the Shift Assessment completed by the Licensed Practical Nurse today this shift.
[2021-04-08 06:13] LABS: BASOPHILS 0.6 % (0-2); EOSINOPHILS 4.8 % (0-7); HEMATOCRIT 25.8 % (36.0-48.0); HEMOGLOBIN 8.5 g/dL (12-16); LYMPHOCYTES 23.1 % (15-50); MCH 28.5 pg (26.0-34.0); MCV 86.3 fL (80.0-100.0); MEAN PLATELET VOLUME 7.8 fL (7.4-10.4); MONOCYTES 8.3 % (2-11); NEUTROPHILS 63.2 % (40-80); PLATELET COUNT 147 10x3/uL (130-400); RBC 2.99 10x6/uL (4.00-5.40); RDW 17.8 % (11.5-14.5); WBC 5.5 10x3/uL (4.8-10.8)
[2021-04-08 06:37] LABS: ALBUMIN 1.7 g/dL (3.4-5.0); ANION GAP 9.2 mmol/L (8-16); BILIRUBIN - TOTAL 0.26 mg/dL (0.2-1.3); CALCIUM 7.5 mg/dL (8.5-10.1); CARBON DIOXIDE 25.9 mmol/L (21.0-32.0); POTASSIUM - SERUM 4.1 mmol/L (3.5-5.1); PROTEIN - SERUM 6.5 g/dL (6.4-8.2)
[2021-04-08 10:13] VITALS: BP 159/80
[2021-04-08 13:10] VITALS: BP 146/71
[2021-04-08] MEDS ORDERED: QUESTRAN LIG1 PACKET PO (14:15)
[2021-04-08] MEDS ORDERED: HUMALOG 30100 UNITS/ SC (14:15)
[2021-04-08] MEDS ORDERED: PROTONIX40 MG PO (14:15)
--- NOTE | 2021-04-08 15:34 | MORECARE ---
CASE MANAGEMENT DISCHARGE SUMMARY PATIENT: JERE MEDELLIN UNIT: [id number] ADM DATE: 03/16/21 AGE: 65 : 54 SEX: F ROOM/BED: D.2238 AUTHOR: CHARO,DOC PHYSICIAN: REFERRING PHYSICIAN: JOJO FELIZ MD DATE OF SERVICE: 04/08/21 Case Management Discharge Planning Summary COMMENTS ENTERED DATE: 04/08/21 15:29 CT COMMENT TYPE: Discharge Planning REVIEWER: Huyen Del Rio CAREN ACCEPTED TO [facility], EMS WILL TRANSPORT PATIENT. IMM SIGNED AND COPY ON CHART. ENTERED DATE: 04/06/21 12:19 CT COMMENT TYPE: Discharge Planning REVIEWER: Huyen ERICKSON DID NOT HAVE ANY BEDS AVAILABLE. I FAXED TO [facility] YESTERDAY AND SPOKE WITH THEM TODAY. THEY ARE SUBMITTING AUTH. I ANTICIPATE HER BEING APPROVED FOR REHAB BY TOMORROW MORNING AND CAN DC TO [facility] AT THAT TIME. ENTERED DATE: 04/05/21 12:39 CT COMMENT TYPE: Discharge Planning REVIEWER: Huyen ERICKSON HAS NO BEDS AVAILABLE UNTIL MONDAY. REFERRAL [facility]. WAITING CALL BACK. ENTERED DATE: 04/02/21 11:44 CT COMMENT TYPE: Discharge Planning REVIEWER: Huyen Del Rio SPOKE WITH PATIENT TODAY AND IF HER INSURANCE DOESN'T APPROVE INPATIENT REHAB SHE WOULD LIKE [facility] FOR REHAB. MARIO SIGNED AND PLACED ON CHART. ENTERED DATE: 03/26/21 13:49 CT COMMENT TYPE: Discharge Planning REVIEWER: Huyen Del Rio CM met with patient at bedside after obtaining verbal consent. CM discussed availability / needs of home health, REHAB and medical equipment. Patient states will need rehab when medically stable. MARIO signed for inpatient rehab [facility] and imm signed and placed on chart. Anticipate patient to go to inpatient rehab when medically stable. She does have a wound vac in place and would like a knee walker for home. CM to follow and assist as needed. DCP REVIEW SUMMARY ANTICIPATED D/C DATE: EXPECTED LOS : CASE STATUS: DCP Initiated INITIAL REVIEW: 03/16/2021 INITIAL REVIEWER: Huyen Del Rio FINAL DISCHARGE DISPOSITION: : FINAL REVIEWER: FINAL REVIEW DATE: DCP Focus Questions & Answers DCP Screen QUESTION: ANSWER High Risk Factors: : Hosp related to CHF, COPD, DM, End Stage Ds, CVA, CA DCP Evaluation QUESTION: ANSWER Patient's ability to cope with chronic illness : b. Minimal (2 - 3 ED visits in 6 mos., limited financial resources, occasionally misses appts.) Patient's current cognitive status: : *Oriented to person, place, situation, time and present Functional screen assessment: : New onset in difficulty in gait, balance, or transfer difficulties Physical Status: : Mobility impaired Living Arrangements: : Home with others Living arrangements comments: : SISTER LIVES WITH HER BUT IS IN BAD HEALTH Baseline cognitive status: : *Oriented to person, place, situation, time and present Pharmacy name(s): : [facility] Does Patient have transportation to get home and to follow-up medical appointments when discharged from the hospital? : Yes Would patient like to participate in any Care Coordination programs (if applicable): : Not applicable Does the patient have electricity at home? : Yes Does the patient have running water in their house? : Yes Other Equipment comments: : SARAI [place] Mental health screen: : No mental health history Resources / Services in place: : Home health Contact information for resources in use: : [facility] Problems identified by the patient regarding discharge: : STATES SHE MAY MOVE TO [place] TO BE CLOSER TO HER SON. STATES SHE MAY NEED A KNEE WALKER AT TIME OF DISCHARGE. DCP Re-evaluation QUESTION: ANSWER Would patient like to participate in any Care Coordination programs (if applicable): : Not applicable PROVIDER NETWORKING REVIEW DATE: 04/05/2021 SERVICE TYPE: [facility] Facility REVIEWER: Huyen Del Rio REVIEW DATE: 04/05/2021 SERVICE TYPE: Detention Facility REVIEWER: Huyen Del Rio PATIENT: JERE MEDELLIN ENCOUNTER: [id number] MEDICAL RECORD#: [id number] ADMISSION DATE: 03/16/2021 DISCHARGE DATE: ATTENDING MD: JOJO SOTO : AGE: 65 MARITAL STATUS: D DC PLAN ID: [id number] FACILITY: [facility] PRINTED ON: 04/08/21 15:34 CT All edits/amendments must be made on the electronic document DICTATION DATE: 04/08/211533 WIRE ROLLER: ZEN 04/08/211533 RPT#: [id number] DC DATE: STATUS: ADM IN [facility] [address] [place] [address] END OF REPORT
--- NOTE | 2021-04-08 16:32 | NUR ---
IV DISCONTINUED WITH DRESSING INTACT TO LEFT BKA. AMBULANCE HERE FOR TRANSPORT AND VERBALIZED UNDERSTANDING OF DISCHARGE INSTRUCTIONS. REPORT CALLED TO MARLI PALESTINEAriella ROSE LPN. STABLE AT TIME OF DISCHARGE.
--- NOTE | 2021-04-08 16:50 | MORECARE ---
CASE MANAGEMENT DISCHARGE SUMMARY PATIENT: JERE MEDELLIN UNIT: [id number] ADM DATE: 03/16/21 AGE: 65 : 53 SEX: F ROOM/BED: D.2238 AUTHOR: CHARO,DOC PHYSICIAN: REFERRING PHYSICIAN: JOJO FELIZ MD DATE OF SERVICE: 04/08/21 Case Management Discharge Planning Summary COMMENTS ENTERED DATE: 04/08/21 15:29 CT COMMENT TYPE: Discharge Planning REVIEWER: Huyen eDl Rio CAREN ACCEPTED TO [facility], EMS WILL TRANSPORT PATIENT. IMM SIGNED AND COPY ON CHART. ENTERED DATE: 04/06/21 12:19 CT COMMENT TYPE: Discharge Planning REVIEWER: Huyen ERICKSON DID NOT HAVE ANY BEDS AVAILABLE. I FAXED TO [facility] YESTERDAY AND SPOKE WITH THEM TODAY. THEY ARE SUBMITTING AUTH. I ANTICIPATE HER BEING APPROVED FOR REHAB BY TOMORROW MORNING AND CAN DC TO [facility] AT THAT TIME. ENTERED DATE: 04/05/21 12:39 CT COMMENT TYPE: Discharge Planning REVIEWER: Huyen ERICKSON HAS NO BEDS AVAILABLE UNTIL MONDAY. REFERRAL FAXED TO [facility]. WAITING CALL BACK. ENTERED DATE: 04/02/21 11:44 CT COMMENT TYPE: Discharge Planning REVIEWER: Huyen Del Rio SPOKE WITH PATIENT TODAY AND IF HER INSURANCE DOESN'T APPROVE INPATIENT REHAB SHE WOULD LIKE [facility] FOR REHAB. MARIO SIGNED AND PLACED ON CHART. ENTERED DATE: 03/26/21 13:49 CT COMMENT TYPE: Discharge Planning REVIEWER: Huyen Del Rio CM met with patient at bedside after obtaining verbal consent. CM discussed availability / needs of home health, REHAB and medical equipment. Patient states will need rehab when medically stable. MARIO signed for inpatient rehab [facility] and imm signed and placed on chart. Anticipate patient to go to inpatient rehab when medically stable. She does have a wound vac in place and would like a knee walker for home. CM to follow and assist as needed. DCP REVIEW SUMMARY ANTICIPATED D/C DATE: EXPECTED LOS : CASE STATUS: DCP Initiated INITIAL REVIEW: 03/16/2021 INITIAL REVIEWER: Huyen Del Rio FINAL DISCHARGE DISPOSITION: : FINAL REVIEWER: FINAL REVIEW DATE: DCP Focus Questions & Answers DCP Screen QUESTION: ANSWER High Risk Factors: : Hosp related to CHF, COPD, DM, End Stage Ds, CVA, CA DCP Evaluation QUESTION: ANSWER Patient's ability to cope with chronic illness : b. Minimal (2 - 3 ED visits in 6 mos., limited financial resources, occasionally misses appts.) Patient's current cognitive status: : *Oriented to person, place, situation, time and present Functional screen assessment: : New onset in difficulty in gait, balance, or transfer difficulties Physical Status: : Mobility impaired Living Arrangements: : Home with others Living arrangements comments: : SISTER LIVES WITH HER BUT IS IN BAD HEALTH Baseline cognitive status: : *Oriented to person, place, situation, time and present Pharmacy name(s): : [facility] Does Patient have transportation to get home and to follow-up medical appointments when discharged from the hospital? : Yes Would patient like to participate in any Care Coordination programs (if applicable): : Not applicable Does the patient have electricity at home? : Yes Does the patient have running water in their house? : Yes Other Equipment comments: : SARAI [place] Mental health screen: : No mental health history Resources / Services in place: : Home health Contact information for resources in use: : [facility] Problems identified by the patient regarding discharge: : STATES SHE MAY MOVE TO [place] TO BE CLOSER TO HER SON. STATES SHE MAY NEED A KNEE WALKER AT TIME OF DISCHARGE. DCP Re-evaluation QUESTION: ANSWER Would patient like to participate in any Care Coordination programs (if applicable): : Not applicable PROVIDER NETWORKING REVIEW DATE: 04/05/2021 SERVICE TYPE: [facility] REVIEWER: Huyen Del Rio REVIEW DATE: 04/05/2021 SERVICE TYPE: [facility] REVIEWER: Huyen Del Rio PATIENT: JERE MEDELLIN ENCOUNTER: [id number] MEDICAL RECORD#: [id number] ADMISSION DATE: 03/16/2021 DISCHARGE DATE: 04/08/2021 ATTENDING MD: JOJO SOTO : AGE: 65 MARITAL STATUS: D DC PLAN ID: [id number] FACILITY: [facility] PRINTED ON: 04/08/21 16:50 CT All edits/amendments must be made on the electronic document DICTATION DATE: 04/08/211649 ORE ROASTER: ZEN 04/08/211649 RPT#: [id number] DC DATE:04/08/21 STATUS: DIS IN [facility] [address] [place] [address] END OF REPORT
--- NOTE | 2021-04-08 17:32 | NUR ---
OT NOTE: PT COMPLETED BUE AROM EXS TOLERATED. PT COMPLETED BED TO CHAIR TSF WITH CGA. PT COMPLETED FACE AND HAIR HYGIENE WITH SETUP. [phone] THANK YOU,BERENICE YEUNG
== END 2021-04-08 16:35 | DRG 853 ==
LOC: D.ER 19:17 → D.ICU 03-16 01:31 → D.MS 03-16 01:31
PROVIDERS: Emergency Medicine; Family Medicine; Internal Medicine Gastroenterology; Internal Medicine Nephrology; Internal Medicine Pulmonary Disease; Podiatrist Foot & Ankle Surgery; ADMIT Family Medicine Adult Medicine; ATTEND Family Medicine Adult Medicine
PROC: 0DBE8ZX Excision of Large Intestine, Via Natural or Artificial Opening Endoscopic, Diagnostic (ICD-10-PCS; 2021-03-17)
PROC: 0QDP0ZZ Extraction of Left Metatarsal, Open Approach (ICD-10-PCS; principal; 2021-03-18 09:30)
PROC: 0Y6J0Z2 Detachment at Left Lower Leg, Mid, Open Approach (ICD-10-PCS; 2021-03-21)
DX: A41.9 Sepsis, unspecified organism (principal); E11.00 Type 2 diabetes mellitus with hyperosmolarity without nonketotic hyperglycemic-hyperosmolar coma (NKHHC); S32.019A Unspecified fracture of first lumbar vertebra, initial encounter for closed fracture; K92.2 Gastrointestinal hemorrhage, unspecified; N17.9 Acute kidney failure, unspecified; E87.1 Hypo-osmolality and hyponatremia; I96 Gangrene, not elsewhere classified; E11.52 Type 2 diabetes mellitus with diabetic peripheral angiopathy with gangrene; E44.0 Moderate protein-calorie malnutrition; E11.65 Type 2 diabetes mellitus with hyperglycemia; E11.621 Type 2 diabetes mellitus with foot ulcer; L97.529 Non-pressure chronic ulcer of other part of left foot with unspecified severity; Z79.4 Long term (current) use of insulin; E83.42 Hypomagnesemia; E83.51 Hypocalcemia; M54.2 Cervicalgia; M54.5 Low back pain; F32.9 Major depressive disorder, single episode, unspecified; W19.XXXA Unspecified fall, initial encounter; E11.40 Type 2 diabetes mellitus with diabetic neuropathy, unspecified; M89.9 Disorder of bone, unspecified; D50.9 Iron deficiency anemia, unspecified; F17.200 Nicotine dependence, unspecified, uncomplicated; Z68.28 Body mass index [BMI] 28.0-28.9, adult; D72.829 Elevated white blood cell count, unspecified

== ENCOUNTER → 2021-04-13 21:07 | Outpatient (CLI) | payer MEDICARE ==
[2021-03-17 07:57] VITALS: BMI 28.1
[~2021-04-13 21:07] MED LIST changes: +HUMALOG 30100 UNITS/ SC; +HYDROCODON-ACE1 EA10 PO; +PROTONIX40 MG PO; +QUESTRAN LIG1 PACKET PO
[2021-04-13 21:30] LABS: BASOPHILS 1.2 % (0-2); EOSINOPHILS 3.9 % (0-7); HEMATOCRIT 27.4 % (36.0-48.0); HEMOGLOBIN 8.9 g/dL (12-16); LYMPHOCYTES 19.4 % (15-50); MCH 28.6 pg (26.0-34.0); MCHC 32.4 g/dL (31.0-37.0); MCV 88.3 fL (80.0-100.0); MEAN PLATELET VOLUME 8.2 fL (7.4-10.4); MONOCYTES 6.6 % (2-11); NEUTROPHILS 68.9 % (40-80); PLATELET COUNT 168 10x3/uL (130-400); RBC 3.11 10x6/uL (4.00-5.40); RDW 18.5 % (11.5-14.5); WBC 6.1 10x3/uL (4.8-10.8)
[2021-04-13 22:11] LABS: ALBUMIN 2.2 g/dL (3.4-5.0); ANION GAP 9.8 mmol/L (8-16); BILIRUBIN - TOTAL 0.25 mg/dL (0.2-1.3); CALCIUM 7.4 mg/dL (8.5-10.1); CARBON DIOXIDE 29.3 mmol/L (21.0-32.0); CHOL - HDL RATIO 2.3 ratio (2.3-4.1); CREATININE - SERUM 1.1 mg/dL (0.6-1.3); LDL-HDL RATIO 0.8 ratio (1.5-3.5); POTASSIUM - SERUM 4.1 mmol/L (3.5-5.1); PROTEIN - SERUM 6.8 g/dL (6.4-8.2)
== END | disposition home or self-care (01) ==
LOC: D.LABREF 21:07
PROVIDERS: ATTEND Family Medicine
DX: E11.8 Type 2 diabetes mellitus with unspecified complications (principal); S22.43XD Multiple fractures of ribs, bilateral, subsequent encounter for fracture with routine healing; D64.9 Anemia, unspecified

== ENCOUNTER → 2021-04-19 17:55 | Outpatient (CLI) | payer MEDICARE ==
[2021-03-17 07:57] VITALS: BMI 28.1
[2021-04-19 18:43] LABS: BACTERIA FEW HPF (<MOD); BILIRUBIN NEGATIVE (NEGATIVE); KETONE NEGATIVE mg/dL (< 1+); NITRITE NEGATIVE (NEGATIVE); SQUAMOUS EPITHELIAL 1 HPF (0-4); UROBILINOGEN NORMAL mg/dL (< 2); WHITE CELLS - URINE 8 HPF (0-4)
== END | disposition home or self-care (01) ==
LOC: D.LABREF 17:55
PROVIDERS: ATTEND Family Medicine
DX: Z51.81 Encounter for therapeutic drug level monitoring (principal)

== ENCOUNTER → 2021-04-21 22:12 | Outpatient (CLI) | payer MEDICARE ==
[2021-03-17 07:57] VITALS: BMI 28.1
== END | disposition home or self-care (01) ==
LOC: D.LABREF 22:12
PROVIDERS: ATTEND Family Medicine
DX: Z51.81 Encounter for therapeutic drug level monitoring (principal)